=== PATIENT | male | born 1955 | race Caucasian/White ===

== ENCOUNTER → 2019-10-24 11:15 | Outpatient (BNVA) | payer MEDICARE, SELFPAY | PROVIDERS: Family Provider Internal Medicine; Visit Provider Nurse Practitioner Family | DX: R19.7 Diarrhea, unspecified (principal) | CPT/HCPCS: 87506 ==

== ENCOUNTER 2020-05-20 07:26 | Outpatient (CLI) | payer OTHER, SELFPAY ==
--- NOTE | 2020-05-20 08:00 | CT_ITS ---
WS: [id number] CTA ABDOMINAL AORTA WITH RUNOFF TECHNIQUE: Contrast enhanced CTA of the abdominal aorta with bilateral lower extremity runoff. Multip lanar reformatted images were obtained. MIP reformats were also reviewed. CLINICAL INFORMATION: I73.9 - Peripheral vascular disease, unspecified COMPARISON: None. DLP: 1914.[address] scans at [facility] use at least one of these dose optimization techniques: automat ed exposure control; mA and/or kV adjustment per patient size (includes targeted exams where dose is matched to clinical indication); or iterative reconstruction. FINDINGS: Normal caliber abdominal aorta. Mild aortic calcification. No aneurysm. Celiac and SMA are patent. Proximal renal arteries are patent. Normal renal parenchymal enhancement. Inferior mesenteric artery is patent Prior postoperative changes cholecystectomy with induration and edema in the gallbladder fossa likely due to recent cholecystectomy. Recommend correlation with recent surgical history. Diffuse fatty inf iltration of the liver. Portal vein and splenic vein are patent. Normal spleen. Adrenal glands are no rmal. Normal renal parenchymal enhancement. No hydronephrosis. Mild fatty atrophy of the pancreas. Susan ng bases are well aerated. Disc space narrowing L3-L4 and L4-L5. RIGHT: Right common iliac artery is patent. External and internal iliac arteries are patent. Common f emoral and deep femoral arteries are patent. Mild calcification superficial femoral artery which haily ins patent. Superficial femoral artery is patent to the adductor hiatus. Mild stenosis with calcifica tion proximal popliteal artery [id number]. Mild segmental narrowing calcification popliteal arter y [id number]. Dense calcification at the level of the knee with high-grade stenosis. JOSE degrade s images in this area. Popliteal artery appears occluded just above the knee. Popliteal artery recons titutes proximal to the trifurcation with normal three-vessel runoff to the ankle. Calcification prox imal anterior tibial artery with intermittent flow. Distal calf arteries are patent. LEFT: Left common iliac artery is patent. External and internal iliac arteries are patent. Severe britany nosis in the common femoral artery in the left groin measuring approximately 80%. Dense calcification at this level. Superficial femoral and deep femoral arteries are patent. Popliteal artery is patent above the knee with moderate calcification. Dense calcification popliteal at the level of the knee wi th high-grade stenosis. This appears occluded at the level of the patella. This reconstitutes proxima l to the trifurcation with normal three-vessel runoff to the ankle. CT/CT angio abd aorta runof 61012 IMPRESSION: 1. No abdominal aortic aneurysm. 2. RIGHT: TKA degrades images at the level of the knee. Popliteal artery is oc cluded just above the knee with dense calcification. Popliteal artery reconstit utes proximal to the trifurcation with three-vessel runoff to the ankle. Segmen efraín flow in the anterior tibial artery proximally which is patent distally. 3. LEFT: High-grade stenosis involving the common femoral artery in the left g roin measuring 80% which remains patent. Popliteal artery is occluded at the le akash of the patella above the knee with dense calcification. This reconstitutes prior to the trifurcation with relatively normal three-vessel runoff to the ank le. 4. Prior postoperative changes cholecystectomy with induration and edema in th e gallbladder fossa likely due to recent cholecystectomy. Recommend correlation with surgical history. 5. Other nonvascular findings described above.
[2020-05-20 08:15] LABS: Blood Urea Nitrogen 28 mg/dL (8-23); Glomerular Filtration Rate 35.5 mL/min (90-130)
[2020-05-20] MEDS: iodixanol 320 mg/mL 100mL Btl IV (08:46)
== END 2020-05-20 07:27 | disposition home or self-care (01) ==
LOC: CT 07:27
PROVIDERS: PCP Family Medicine; Visit Provider Thoracic Surgery (Cardiothoracic Vascular Surgery)
DX: I73.9 Peripheral vascular disease, unspecified (principal); I70.8 Atherosclerosis of other arteries
CPT/HCPCS: 36415; 75635; 82565; 84520

== ENCOUNTER 2020-06-19 13:34 | Outpatient (CLI) | payer OTHER, SELFPAY ==
[2020-06-19 13:56] LABS: Basophils # 0.1 10^3/uL (0.0-0.1); Eosinophils # 0.3 10^3/uL (0.0-0.8); Eosinophils % 5.2 %; Hematocrit 40.4 % (42.0-52.0); Lymphocytes # 1.3 10^3/uL (0.8-4.8); Lymphocytes % 27.9 %; Mean Corpuscular HGB Conc 34.7 g/dL (30.0-36.0); Mean Corpuscular Hemoglobin 30.4 pg (28.0-34.0); Mean Corpuscular Volume 87.8 fL (80-94); Mean Platelet Volume 8.5 fL (7.4-10.4); Monocytes # 0.6 10^3/uL (0.2-0.9); Monocytes % 12.1 %; Neutrophils # 2.57 10^3/uL (1.8-7.7); Neutrophils % 53.6 %; Nucleated Red Blood Cells % 0 %; Platelet Count 138 10^3/cmm (130-400); Red Cell Distribution Width 12.1 % (12.1-15.1); White Blood Count 4.8 10^3/uL (4.0-10.0)
[2020-06-19 14:25] LABS: Blood Urea Nitrogen 26 mg/dL (8-23); Calcium 9.8 mg/dL (8.5-10.5); Carbon Dioxide 28 mmol/L (22-29); Chloride 101 mmol/L (98-107); Glomerular Filtration Rate 46.7 mL/min (90-130); Glucose 202 mg/dL (65-115); Osmolality Calculated 299 mOsm/kg (285-295); Sodium 139 mmol/L (136-145)
[2020-06-19 15:31] LABS: INR 0.94 (0.8-1.2)
== END 2020-06-19 13:35 | disposition home or self-care (01) ==
PROVIDERS: PCP Family Medicine; Visit Provider Internal Medicine Cardiovascular Disease
DX: I73.9 Peripheral vascular disease, unspecified (principal)
CPT/HCPCS: 80048; 85025; 85610; 87635

== ENCOUNTER 2020-06-24 05:57 | Day surgery (SDC) | payer OTHER, MEDICARE, SELFPAY ==
[2020-06-24] VITALS (19 sets, daily range): BP systolic 165–202; BP diastolic 90–128; PULSE 61–79; RESP 12–23; TEMP 36.7–36.8; O2SAT 95–98; BMI 27.4
--- NOTE | 2020-06-24 | USCV_ITS ---
Gregory Mukherjee Age: 65 Gender: M : 1955 Exam Date: 06/24/2020 17:01 Ordering Phys: Deonte Herrera MD ([email or web address]) Technologist: OLIVERIO [place] [facility] [place]: [place] GROIN TO CHECK FOR PSEUDO Findings Scanned left groin incluiding the GSV, CFV, Profunda, CROWN PRESSER, and TIE BINDER. Normal flow seen in CROWN PRESSER and no pseudoaneurysm seen at this time. Common femoral artery, common femoral and profunda femoral vein, greater saphenous vein and the posterior tibial artery where interrogated. The veins were found to be easily compressible. Conclusions Patent common femoral and profunda femoral vein. Patent common femoral artery No evidence of pseudoaneurysm in the left groin Dr Kerri Wallace MD FAC (Electronically Signed) Final Date: 24 June 2020 17:50 S
[2020-06-24] MEDS: sodium chloride 0.9% 250 ML 999 ML IV (06:57)
[2020-06-24] MEDS: diphenhydrAMINE 50 mg Capsule PO (06:57)
--- NOTE | 2020-06-24 07:00 | XACV_ITS ---
Wt: 94 kg BSA: 2.22 m2 Gender: Male : 1955 Exam Type: Invasive Peripheral Vascular Procedure(s): Procedure Description: Peripheral Cath Diagnostic Procedure Exam Priority: Routine Lower Extremity Diagnostic Findings Indication for peripheral angiogram: Lifestyle limiting claudication of right leg despite of optimization of medicine Abdominal aortogram: Normal abdominal aorta without aneurysm, normal right and left renal arteries. Peripheral angiogram: Normal bilateral common iliac arteries, normal internal and external iliac arteries, normal common femoral arteries bilaterally, normal left SFA, right SFA has distal mild calcified stenosis which is not significant, normal bilateral profundofemoral arteries, left popliteal artery is normal. Right popliteal artery is chronically occluded in the proximal segment with reconstitute in the mid way with collateral, it is a highly calcified lesion, bilateral tibioperoneal trunk showed luminal irregularity two-vessel runoff was noted in both legs. . Lower Extremity Interventional Findings Intervention: Using left common femoral artery approach with help of Glidewire , we were able to cross the proximal popliteal right side lesion after somewhat difficulty however distal end of the wire went through collateral into the tibial peroneal trunk. Despite of balloon angioplasty of the proximal highly calcified segment of the right popliteal were not able to cross the main lesion which remained unsuccessful. At this point we stopped the procedure with a plan to bring him back through tibial approach. Follow-up angiogram of the right leg showed patent below the knee vessels with 2 vessel runoff.. Recommendations Usual post-cath care. We will bring patient back for tibial approach in order to cross the popliteal lesion for lifestyle limiting claudication of the right leg.. Hemodynamic Data Phase:Rest AO : 189.0 / 72.0 ( 115.0 ) @ 3:55:00 AM Access Site Site: Left Femoral artery Sheath Size: 6 Fr Hemost... Method: Suture Hemost... Success: Successful Site: Right Popliteal Sheath Size: 5 Fr Hemost... Method: Manual Compression Hemost... Success: Successful Site: Popliteal Sheath Size: 5 Fr Hemost... Method: TR Band Hemost... Success: Successful Procedure Details Findings Procedure Consent Obtained. Pre-Procedure Time Out. Identified patient by full name and date of as verbalized by the patient/guarantor. Does the consent match the physician's order: Yes. Accurate & Complete Informed Consent: Yes. Inpatient/Outpatient History & Physical on Chart: Yes. If H&P is completed, is and addenduem needed: N/A; If yes, is the addendum complete: N/A. Visualize and Verify Site with Patient/Guarantor: N/A. Relevant Radiology Images available: N/A. The risks, benefits, and alternatives of sedation and/or procedure were discussed by physician. The patient agrees to continue. Procedure started. Correct patient, site and procedure confirmed by cath team. PERRLA. Strong, equal hand family intervention specialist bilaterally. Lungs clear x 5 lobes. IV Site on Arrival: 20 gauge in the left forearm. Oxygen started at 2liters/min via nasal canula. bilateral groins was prepped with chloroprep then draped in the usual sterile fashion. Physician notified. Baseline sample Acquired. HR: 73 BPM. Physician arrived. Physician scrubbed in. Immediate Pre-Procedure Time Out. Correct Patient: Yes; Correct Procedure: Yes; Correct Site: Yes; Correct Patient Position: Yes; Correct Supplies: Yes; Dried Flammable Prep: Yes; Blood Products Available: N/A;. Lidocaine 1% infiltrated to the left groin. Arterial access obtained with micropuncture set. A 5FrFr UF catheter in over wire. Abdominal aortogram performed in AP @ 10 mL/sec for a total of 30 mL. glidewire inserted. Catheter out. 6F sheath out. 6Fr Flexor in place of sheath. LOT#[id number]. right leg runoff 10mL /sec for a total of 30mL. Trailblazer catheter inserted over the wire. glidewire out. command wire inserted. command wire out. hand injection performed throught the trailblazer. guide wire inserted. guide wire out. trailblazer advanced to the TPT. hand injection performed. hand injection performed. glidewire inserted. Inflation number : [address] 35 OTW [id number] was prepped and advanced across the Popliteal, Left Popliteal, Left , then inflated to 14 NALDO for 2:43 seconds. Balloon out. hand injection performed. seeker inserted. wire out. hand injection performed. seeker out. Side port of sheath attached to Normal Saline flush at KVO to maintain patency. Right leg exsposed and prepped with chloroprep. unltra sound arrived for pedal access. Lidocaine 1% infiltrated to the right PT. Arterial access obtained. glidewire inserted. Sheath out of PT manual pressure obtained. right leg runoff 10mL/sec for a total of 30mL. ultra sound back for attempt to gain access of PT. Lidocaine 1% infiltrated to the RightPT. Arterial access obtained. 6F long sheath exchanged for a 6F short sheath. run off performed. A Manual Compression was successful obtaining hemostatsis at the Right Popliteal insertion site. A TR Band was successful obtaining hemostatsis at the Popliteal insertion site. A Suture was successful obtaining hemostatsis at the Left Femoral artery insertion site. TR band placed. Hemostasis obtained. Sheath(s) sutured into position with 2-0 silk and sterile 4x4's and Op-site applied over the site. No oozing or signs and symptoms of hematoma noted. Arterial sheath flushed and connected to tranducer and pressure bag with heparinized saline. Post Procedure: Pulses reassessed and unchanged. PERRLA. Strong, equal hand family intervention specialist bilaterally. No VTE prophylaxis required. Medication's Wasted: Other = versed 1 mg. Medication's Wasted: Other = fentanyl 50 mg. Medication's Wasted: Heparin = 2000 units. Total IV fluids: 264 mL. Contrast type used: Visipaque 320 mgI/mL, 500 mL bottle. Contrast Material : Visipaque 300 ml. Complications: none. Estimated blood loss: 5mL-10mL. Post-op diagnosis: Prox popiteal occluded. balloon angioplasty across distal. Procedure completed. Patient transferred by bed to 1st floor. Vital chart was stopped. Procedure Medications Start: 7:47 AM Stop: 7:47 AM Medication: Versed Amount: 1 mg Route: I.V. Start: 7:47 AM Stop: 7:47 AM Medication: Fentanyl Amount: 50 mcg Route: I.V. Start: 7:48 AM Stop: 7:48 AM Medication: 0.9% Saline Amount: 150 ml/hr Route: I.V. drip Start: 7:51 AM Stop: 7:51 AM Medication: Versed Amount: 1 mg Route: I.V. Start: 7:51 AM Stop: 7:51 AM Medication: Fentanyl Amount: 50 mcg Route: I.V. Start: 8:14 AM Stop: 8:14 AM Medication: Heparin Amount: 5000 units Route: I.V. Start: 8:24 AM Stop: 8:24 AM Medication: Versed Amount: 1 mg Route: I.V. Start: 8:24 AM Stop: 8:24 AM Medication: Fentanyl Amount: 50 mcg Route: I.V. Start: 8:30 AM Stop: 8:30 AM Medication: Heparin Amount: 2000 units Route: I.V. Start: 8:07 AM Stop: 8:07 AM Medication: Versed Amount: 1 mg Route: I.V. Start: 8:07 AM Stop: 8:07 AM Medication: Fentanyl Amount: 50 mcg Route: I.V. Start: 9:12 AM Stop: 9:12 AM Medication: Versed Amount: 1 mg Route: I.V. Start: 9:12 AM Stop: 9:12 AM Medication: Fentanyl Amount: 50 mcg Route: I.V. Start: 8:50 AM Stop: 8:50 AM Medication: Versed Amount: 1 mg Route: I.V. Start: 8:50 AM Stop: 8:50 AM Medication: Fentanyl Amount: 50 mcg Route: I.V. Start: 8:40 AM Stop: 8:40 AM Medication: Versed Amount: 1 mg Route: I.V. I, the attending physician, have reviewed and verified all procedure medications. Yes, all medications given per verbal order History/Risk Factors Hypertension: Yes Tobacco Use: Current/Recent(w/in 1 year) Dialysis: Current Prior Interventions CABG: Yes Report Signatures Finalized by Deonte Herrera MD on 07/03/2020 08:03 PM
--- NOTE | 2020-06-24 07:38 | P.HP_ITS ---
Same Day Surgery H&P Indication for Procedure/HPI DATE OF PROCEDURE: June 24, 2020 CHIEF COMPLAINT/INDICATIONFOR SURGICAL PROCEDURE: Lifestyle limiting claudication of both legs more on right than left with abnormal CTA showing occlusion of popliteal artery on the right side and complete occlusion of left SFA. PREOP DIAGNOSIS: Lifestyle limiting claudication PLANNED PROCEDRUE: Operation Date: 06/24/20 07:00 Proposed Procedures p Peripheral Diagnostic 34509(Not Applicable) - Deonte Herrera MD 65-year-old male past medical history significant for coronary artery disease hypertension hyperlipidemia history of tobacco abuse chronic kidney disease baseline creatinine around 1.5 diabetes mellitus pain syndrome for worsening of lifestyle limiting claudication more on right then left has been referred to us by Dr. Rodriguez for peripheral angiogram and intervention if indicated. 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 Patient can hardly walk 100 feet before he has to sit down due to tightness and cramps. He has total knee replacement on the right side despite of that his pain has gotten worsen. Patient has been explained all risk benefit and alternative for the procedure. He understand the risk of bleeding infection hematoma he understands the FDA warning of high mortality in some patient with using drug-coated balloon. He would like to use it if indicated. He would like to proceed with peripheral angiogram and intervention . Medications/Allergies* Home Medications Medication Instructions Recorded Confirmed Type baclofen 10 mg tablet 10 mg PO DAILY 10/24/19 06/24/20 History glipizide 10 mg tablet 10 mg PO DAILY 10/24/19 06/24/20 History losartan 50 mg tablet 50 mg PO DAILY 10/24/19 06/24/20 History metoprolol tartrate 50 mg tablet 50 mg PO DAILY 10/24/19 06/24/20 History albuterol sulfate 2.5 mg/0.5 mL 2.5 mg INHALATION Q20M 05/16/20 06/24/20 History solution for nebulization albuterol sulfate 90 mcg/actuation 2 puff INHALATION Q6H PRN 05/16/20 06/24/20 History aerosol inhaler allopurinol 100 mg tablet 50 mg PO .EVERY OTHER DAY tab 05/16/20 06/24/20 History alogliptin 12.5 mg tablet 12.5 mg PO DAILY 05/16/20 06/24/20 History alprostadil 20 mcg intracavernosal 20 mcg INTRA-CAVERNOSAL .PRN ea 05/16/20 06/24/20 History kit amlodipine 10 mg tablet 10 mg PO DAILY 05/16/20 06/24/20 History ascorbic acid (vitamin C) 1,000 mg 1,000 mg PO DAILY tab 05/16/20 06/24/20 History tablet,extended release aspirin 325 mg tablet 325 mg PO DAILY 05/16/20 06/24/20 History bumetanide 1 mg tablet 1 mg PO DAILY 05/16/20 06/24/20 History cilostazol 100 mg tablet 100 mg PO BID 05/16/20 06/24/20 History diclofenac sodium 1 % topical gel 4 g TOPICAL QID PRN 05/16/20 06/24/20 History fluticasone propionate 50 2 inh INHALATION DAILY ea 05/16/20 06/24/20 History mcg/actuation blister powder for inhalation gabapentin 300 mg capsule 300 mg PO BEDTIME 05/16/20 06/24/20 History insulin glargine 100 unit/mL 22 unit SUBCUT DAILY ml 05/16/20 06/24/20 History subcutaneous solution magnesium oxide 400 mg PO DAILY 05/16/20 06/24/20 History primidone 50 mg tablet 150 mg PO .Q NIGHTLY tab 05/16/20 06/24/20 History rosuvastatin 40 mg tablet 40 mg PO DAILY 05/16/20 06/24/20 History sildenafil 100 mg tablet 100 mg PO DAILY PRN 05/16/20 06/24/20 History tamsulosin 0.4 mg capsule 0.4 mg PO DAILY 05/16/20 06/24/20 History testosterone cypionate 200 mg/mL 200 mg IM .Q 14 DAYS ml 05/16/20 06/24/20 History intramuscular oil zinc gluconate 100 mg tablet 50 mg PO DAILY tab 05/16/20 06/24/20 History Allergies/Adverse Reactions Allergy/AdvReac Type Severity Reaction Status Date / Time No Known Allergies Allergy Verified 05/16/20 10:10 Current Medications: Generic Name Dose Route Start Last Admin Trade Name Freq PRN Reason Stop Dose Admin Sodium Chloride 1,000 mls @ 50 mls/hr 06/24/20 06:00 06/24/20 06:57 Sodium Chloride 0.9% IV 06/25/20 01:59 Not Given .Q20H ONE Pertinent History/Comorbid Conditions* Family History (Updated 05/16/20 @ 10:28 by Blanca Davis LPN) Denies family history of Diabetes CAD (coronary artery disease) Cancer Social History Smoking and tobacco status: smoker, details unknown cigarettes Packs smoked per day: 2 Years cigarettes smoked: 12 Alcohol intake: never Pertinent Exam Findings alert, oriented x 3, clear to auscultation bilaterally and procedure specific exam findings Conscious Sedation Assessment PATIENT ASSESSED PRIOR TO SEDATION, WITH NO CHANGE NOTED: Yes AIRWAY EVAL/ANESTHESIA PLAN: ASA II, Risks, benefits & alternatives of sedation and/or procedure discussed and Patient agrees to continue as planned Recommendations Surgery/Procedure today Coding Level of Care Code Acute Financial Services Counselor for Yeni Pelletier
--- NOTE | 2020-06-24 07:43 | W.PM.OPSFHP ---
Same Day Surgery H&P Indication for Procedure/HPI DATE OF PROCEDURE: June 24, 2020 CHIEF COMPLAINT/INDICATIONFOR SURGICAL PROCEDURE: Lifestyle limiting claudication of the right leg PREOP DIAGNOSIS: Lifestyle limiting claudication PLANNED PROCEDRUE: Operation Date: 06/24/20 07:00 Proposed Procedures p Peripheral Diagnostic 65264(Not Applicable) - Deonte Herrera MD 65-year-old male with abnormal CTA showing total occlusion of popliteal vessel and lifestyle limiting claudication after failing medical treatment has been scheduled to undergo peripheral angiogram. Patient has been explained all risk benefit and alternative for the procedure. He understand the risk of major minor bleed, hematoma, pseudoaneurysm, urgent emergent vascular surgery, infection. He agrees to proceed with drug-coated balloon if indicated despite of being explained FDA warning for increased mortality in that group. He understand the risk of contrast-induced nephropathy, temporary and permanent dialysis. We will proceed with test today. Further plan will be advised as per progress of the patient. He understand the risk of Medications/Allergies* Home Medications Medication Instructions Recorded Confirmed Type baclofen 10 mg tablet 10 mg PO DAILY 10/24/19 06/24/20 History glipizide 10 mg tablet 10 mg PO DAILY 10/24/19 06/24/20 History losartan 50 mg tablet 50 mg PO DAILY 10/24/19 06/24/20 History metoprolol tartrate 50 mg tablet 50 mg PO DAILY 10/24/19 06/24/20 History albuterol sulfate 2.5 mg/0.5 mL 2.5 mg INHALATION Q20M 05/16/20 06/24/20 History solution for nebulization albuterol sulfate 90 mcg/actuation 2 puff INHALATION Q6H PRN 05/16/20 06/24/20 History aerosol inhaler allopurinol 100 mg tablet 50 mg PO .EVERY OTHER DAY tab 05/16/20 06/24/20 History alogliptin 12.5 mg tablet 12.5 mg PO DAILY 05/16/20 06/24/20 History alprostadil 20 mcg intracavernosal 20 mcg INTRA-CAVERNOSAL .PRN ea 05/16/20 06/24/20 History kit amlodipine 10 mg tablet 10 mg PO DAILY 05/16/20 06/24/20 History ascorbic acid (vitamin C) 1,000 mg 1,000 mg PO DAILY tab 05/16/20 06/24/20 History tablet,extended release aspirin 325 mg tablet 325 mg PO DAILY 05/16/20 06/24/20 History bumetanide 1 mg tablet 1 mg PO DAILY 05/16/20 06/24/20 History cilostazol 100 mg tablet 100 mg PO BID 05/16/20 06/24/20 History diclofenac sodium 1 % topical gel 4 g TOPICAL QID PRN 05/16/20 06/24/20 History fluticasone propionate 50 2 inh INHALATION DAILY ea 05/16/20 06/24/20 History mcg/actuation blister powder for inhalation gabapentin 300 mg capsule 300 mg PO BEDTIME 05/16/20 06/24/20 History insulin glargine 100 unit/mL 22 unit SUBCUT DAILY ml 05/16/20 06/24/20 History subcutaneous solution magnesium oxide 400 mg PO DAILY 05/16/20 06/24/20 History primidone 50 mg tablet 150 mg PO .Q NIGHTLY tab 05/16/20 06/24/20 History rosuvastatin 40 mg tablet 40 mg PO DAILY 05/16/20 06/24/20 History sildenafil 100 mg tablet 100 mg PO DAILY PRN 05/16/20 06/24/20 History tamsulosin 0.4 mg capsule 0.4 mg PO DAILY 05/16/20 06/24/20 History testosterone cypionate 200 mg/mL 200 mg IM .Q 14 DAYS ml 05/16/20 06/24/20 History intramuscular oil zinc gluconate 100 mg tablet 50 mg PO DAILY tab 05/16/20 06/24/20 History Allergies/Adverse Reactions Allergy/AdvReac Type Severity Reaction Status Date / Time No Known Allergies Allergy Verified 05/16/20 10:10 Current Medications: Generic Name Dose Route Start Last Admin Trade Name Freq PRN Reason Stop Dose Admin Sodium Chloride 1,000 mls @ 50 mls/hr 06/24/20 06:00 06/24/20 06:57 Sodium Chloride 0.9% IV 06/25/20 01:59 Not Given .Q20H ONE Pertinent History/Comorbid Conditions* Family History (Updated 05/16/20 @ 10:28 by Blanca Davis LPN) Denies family history of Diabetes CAD (coronary artery disease) Cancer Social History Smoking and tobacco status: smoker, details unknown cigarettes Packs smoked per day: 2 Years cigarettes smoked: 12 Alcohol intake: never Pertinent Exam Findings alert, oriented x 3, clear to auscultation bilaterally and regular rate & rhythm Conscious Sedation Assessment PATIENT ASSESSED PRIOR TO SEDATION, WITH NO CHANGE NOTED: Yes AIRWAY EVAL/ANESTHESIA PLAN: ASA II, Risks, benefits & alternatives of sedation and/or procedure discussed and Patient agrees to continue as planned Recommendations Surgery/Procedure today Coding Level of Care Code Acute General Labor Forklift Operator for Yeni Pelletier
--- NOTE | 2020-06-24 08:50 | USCV_ITS ---
Gregory Mukherjee Age: 65 Gender: M : 1955 Exam Date: 06/24/2020 09:03 Ordering Phys: Deonte Herrera MD ([email or web address]) Technologist: OLIVERIO Exam Location: [facility] Indication: VASCULAR ACCESS Findings ACCESS GAINED The right posterior tibial artery was interrogated The artery was found to be patent Conclusions Patent right posterior tibial artery was identified Dr Kerri Wallace MD [facility] (Electronically Signed) Final Date: 24 June 2020 17:31 S
[2020-06-24] MEDS: allopurinol 100 mg Tablet 50 MG PO (11:16)
[2020-06-24] MEDS: losartan 50 mg Tablet PO ×2 (11:16→18:48)
[2020-06-24] MEDS: amlodipine 10 mg Tablet PO (11:16)
[2020-06-24] MEDS: magnesium oxide 400 mg tablet PO (11:16)
[2020-06-24] MEDS: metoprolol tartrate 50 mg Tablet PO (11:16)
[2020-06-24] MEDS: aspirin 325 mg Tablet PO (11:16)
[2020-06-24 11:21] LABS: Glucose Point of Care 136 mg/dL (70-110)
[2020-06-24 12:52] LABS: Partial Thromboplastin Time 31.8 SECONDS (23.9-36.7)
[2020-06-24] MEDS: fentaNYL 50 mcg/mL INJ 2mL IVP ×2 (13:38→16:27)
--- NOTE | 2020-06-24 16:41 | PC.NURSE ---
received into room 102 from cardiac labor relations specialist at 1005.pt is alert and awake and oriented x 4.sr on monitor.denies pain at present.left femoral arterial sheath intact to pressurized system.drsg is dry and intact.no hematoma palpated.left dp and pt pulses dopplerable.right ankle with tr band on and inflated at right pt artery.dopplerable dp and pt pulse noted distal to tr band.left foot is warm to touch and with brisk capillary refill.instructed in activity restrictions s/p femoral and arterial procedures and instructed to notify staff for any pain,bleeding,numbness or for any concerns at all.pt verb understanding of instructions
--- NOTE | 2020-06-24 16:51 | PC.NURSE ---
50 mcg fentanyl given prior to sheath removal.left femoral sheath pulled at 1350.manul pressure applied and held x 20 min.pt was very active during procedure..bearing down with his breath,moving.it took a minute to achieve hemostasis.small hematoma developed but was expressed.at end of hold ,site was soft,though beginning of bruising noted.will continue to check frequently.
--- NOTE | 2020-06-24 16:55 | PC.NURSE ---
Addendum entered by Leila Hayes RN 06/24/20 18:50: pletal held per dr dick's order Original Note: pt has been checked on frequently and bruising has been increasing..but site has been soft to touch till 1620.site is firm...4 cm x 4cm.very tender to touch.pt states it feels like it is throbbing.dr dick notified and came to unit to observe pt.. 50 mcg of fentanyl given iv as ordered and ultrasound ordered.
[2020-06-24 17:04] LABS: Glucose Point of Care 200 mg/dL (70-110)
[2020-06-24] MEDS: HYDROcodone-acetaminophen 5-325 mg Tablet 2 TAB PO (18:48)
--- NOTE | 2020-06-24 20:00 | PC.NURSE ---
dr dick came and visited pt at 1830..inspected left groin site.area is now soft...but bruising cont to expand.pain med and 1 time 50 mg losarten given for cont htn as ordered
--- NOTE | 2020-06-24 20:07 | PC.NURSE ---
Received bed side shift report from off going nurse. Pt's plan of care reviewed. Pt is resting in bed watching videos on his laptop. Respirations are even and unlabored. No s/sx of distress noted. Pt is alert and oriented and able to make his own decisions. Pt c/o 4/10 pain in his left groin s/p peripheral angiogram. Pain is exacerbated when palpated. Hematoma noted on left groin. Physician is aware and will continue to monitor. Hematoma extends from the left groin to the left pelvis area. Area is soft when palpated besides area of insertion which is noted to be firm. +2 to +3 palpable bilateral dorsal pedal pulses. Pt denies any other pains or concerns at this time. Bed in lowest and locked position, call light and water within reach, x's 2 rails up. Will continue to monitor pt.
[2020-06-24] MEDS: tamsulosin 0.4 mg Capsule PO (20:19)
[2020-06-24] MEDS: atorvastatin 40 mg Tablet 80 MG PO (20:19)
[2020-06-24] MEDS: ALPRAZolam 0.25 mg Tablet PO (20:19)
[2020-06-24] MEDS: baclofen 10 mg Tablet PO (20:20)
[2020-06-24] MEDS: gabapentin 300 mg Capsule PO (20:20)
[2020-06-24 21:18] LABS: Glucose Point of Care 198 mg/dL (70-110)
[2020-06-25] VITALS (48 sets, daily range): BP systolic 147–174; BP diastolic 84–97; PULSE 64–90; RESP 0–22; TEMP 36.6; O2SAT 93–97
[2020-06-25] MEDS: HYDROcodone-acetaminophen 5-325 mg Tablet 2 TAB PO (05:55)
[2020-06-25 07:15] LABS: Glucose Point of Care 155 mg/dL (70-110)
[2020-06-25] MEDS: losartan 50 mg Tablet PO (08:07)
[2020-06-25] MEDS: aspirin 325 mg Tablet PO (08:07)
[2020-06-25] MEDS: magnesium oxide 400 mg tablet PO (08:08)
[2020-06-25] MEDS: allopurinol 100 mg Tablet 50 MG PO (08:08)
[2020-06-25] MEDS: metoprolol tartrate 50 mg Tablet PO (08:11)
[2020-06-25] MEDS: amlodipine 10 mg Tablet PO (08:11)
[2020-06-25 08:17] LABS: Basophils # 0.1 10^3/uL (0.0-0.1); Basophils % 0.9 %; Eosinophils # 0.3 10^3/uL (0.0-0.8); Eosinophils % 4.3 %; Hematocrit 38.6 % (42.0-52.0); Hemoglobin 13.5 g/dL (11.7-16.6); Lymphocytes # 1.4 10^3/uL (0.8-4.8); Mean Corpuscular Hemoglobin 31.2 pg (28.0-34.0); Mean Corpuscular Volume 89.1 fL (80-94); Mean Platelet Volume 8.7 fL (7.4-10.4); Monocytes # 0.9 10^3/uL (0.2-0.9); Monocytes % 14.2 %; Neutrophils # 3.76 10^3/uL (1.8-7.7); Neutrophils % 58.3 %; Nucleated Red Blood Cells % 0 %; Platelet Count 146 10^3/cmm (130-400); Red Blood Count 4.33 10^6/uL (4.1-5.3); Red Cell Distribution Width 12.2 % (12.1-15.1); White Blood Count 6.5 10^3/uL (4.0-10.0)
--- NOTE | 2020-06-25 08:27 | PM.DCS ---
Discharge Providers Date of Discharge: June 25, 2020 Attending Provider at Discharge: Deonte Herrera MD Primary Care Provider: Jackelin Cardona MD Reason for Visit Reason for Visit: Peripheral Diagnostic Hospital Course Hospital Course 65-year-old male past medical history significant for hypertension hyperlipidemia diabetes mellitus for lifestyle limiting claudication and abnormal CT angiogram showing chronically occluded proximal popliteal vessel reconstitute at the tibial peroneal trunk on the right side underwent peripheral angiogram. I was able to cross the lesion in the proximal segment but went through the distal aspects via collateral. Proximal end of the occlusion was dilated with balloon angioplasty however distal segment remained unsuccessful for crossing despite of multiple tries and because of not good visualization due to prosthesis in the knee joint. We also tried to go through posterior tibial but ending up in the tibial vein appeared to be on top of the vessel. Since patient has chronic renal insufficiency and would not like to give much contrast we will reschedule the patient in 2 to 3 weeks for tibial approach in order to cross the distal end of the popliteal vessel. Post cath care was complicated with medium-sized hematoma after pulling of the sheath. Pseudoaneurysm was ruled out. Patient stayed overnight since he has chronic back pain and he was pretty sore in the left groin and also for IV fluid and in order to observe him overnight for any bleed. This morning he has large bruising of the groin but no hematoma. There is no pseudoaneurysm by physical examination or by ultrasound. He will be rescheduled for tibial approach of the right leg in 2 to 3 weeks. Today creatinine has improved to 1.3. I will also optimize medicine for blood pressure control. Physical Exam Narrative: EXAM NARRATIVE: GENERAL: Patient is alert, awake and oriented x3. NECK: No jugular vein distension. HEENT: No cyanosis. No icterus. No pallor. HEART: Regular S1 and S2. No murmur, rub or gallop. LUNGS: Clear to auscultate bilaterally. ABDOMEN: Soft, nontender and nondistended. Positive bowel sounds. No guarding, rebound or tenderness. CENTRAL NERVOUS SYSTEM: Grossly nonfocal. EXTREMITIES: Lower extremities without edema bilaterally., Right left foot looks good warm moist good capillary refill barely 1+ right anterior posterior tibial. 1+ anterior posterior tibial on the left side. Left groin large bruising. Discharge Data Data Completed and Pending: Completed Studies During Hospitalization Category Date Time Status CV unlisted vascu lar [id number] Routine Ultrasound 06/24/20 Completed US guide vascular access [CV guide vascular access Ultrasound 06/24/20 08:50 Completed [id number]] Stat Pending at discharge Category Date Time Status [employer] request for service Routin e Exams 06/24/20 07:00 Taken Basic Metabolic P bel Routine Lab 06/25/20 08:05 Received Labs from last 24 hours 06/25/20 06/25/20 06/25/20 08:05 08:05 06:34 WBC 6.5 RBC 4.33 Hgb 13.5 Hct 38.6 L MCV 89.1 MCH 31.2 MCHC 35.0 RDW 12.2 Plt Count 146 MPV 8.7 Neut % (Auto) 58.3 Lymph % (Auto) 22.0 [place] % (Auto) 14.2 Eos % (Auto) 4.3 Baso % (Auto) 0.9 Neut # (Auto) 3.76 Lymph # (Auto) 1.4 [place] # (Auto) 0.9 Eos # (Auto) 0.3 Baso # (Auto) 0.1 Nucleated RBC % (a uto) 0 Nucleated RBCs # 0.0 APTT Sodium Pending Potassium Pending Chloride Pending Carbon Dioxide Pending Anion Gap Pending BUN Pending Creatinine Pending GFR Calculation Pending Glucose Pending POC Glucose 155 H Calculated Osmolal ity Pending Calcium Pending 06/24/20 06/24/20 06/24/20 19:59 16:20 12:18 WBC RBC Hgb Hct MCV MCH MCHC RDW Plt Count MPV Neut % (Auto) Lymph % (Auto) [place] % (Auto) Eos % (Auto) Baso % (Auto) Neut # (Auto) Lymph # (Auto) [place] # (Auto) Eos # (Auto) Baso # (Auto) Nucleated RBC % (a uto) Nucleated RBCs # APTT 31.8 Sodium Potassium Chloride Carbon Dioxide Anion Gap BUN Creatinine GFR Calculation Glucose POC Glucose 198 H 200 H Calculated Osmolal ity Calcium 06/24/20 11:06 WBC RBC Hgb Hct MCV MCH MCHC RDW Plt Count MPV Neut % (Auto) Lymph % (Auto) [place] % (Auto) Eos % (Auto) Baso % (Auto) Neut # (Auto) Lymph # (Auto) [place] # (Auto) Eos # (Auto) Baso # (Auto) Nucleated RBC % (a uto) Nucleated RBCs # APTT Sodium Potassium Chloride Carbon Dioxide Anion Gap BUN Creatinine GFR Calculation Glucose POC Glucose 136 H Calculated Osmolal ity Calcium Vitals: Last Vital Signs Temp 97.9 F 06/25/20 07:16 Pulse 67 06/25/20 07:16 Resp 14 06/25/20 07:16 BP 149/84 06/25/20 08:07 Pulse Ox 94 06/25/20 07:16 Discharge Plan Discharge Patient Disposition: Home Condition: Stable Prescriptions: Continued losartan 50 mg tablet 50 mg PO DAILY RF: 0 baclofen 10 mg tablet 10 mg PO DAILY RF: 0 glipizide 10 mg tablet 10 mg PO DAILY RF: 0 metoprolol tartrate 50 mg tablet 50 mg PO DAILY RF: 0 albuterol sulfate 90 mcg/actuation HFA aerosol inhaler 2 puff inhalation Q6H PRN (Reason: Shortness Of Breath Or Wheezing) RF: 0 albuterol sulfate 2.5 mg/0.5 mL solution for nebulization 2.5 mg inhalation Q20M RF: 0 allopurinol 100 mg tablet 50 mg PO .EVERY OTHER DAY RF: 0 alogliptin 12.5 mg tablet 12.5 mg PO DAILY RF: 0 alprostadil 20 mcg kit 20 mcg intra-cavernosal .PRN RF: 0 amlodipine 10 mg tablet 10 mg PO DAILY RF: 0 aspirin 325 mg tablet 325 mg PO DAILY RF: 0 bumetanide 1 mg tablet 1 mg PO DAILY RF: 0 cilostazol 100 mg tablet 100 mg PO BID RF: 0 diclofenac sodium [Voltaren] 1 % gel 4 g topical QID PRN (Reason: Pain) RF: 0 fluticasone propionate 50 mcg/actuation blister with device 2 inh inhalation DAILY RF: 0 gabapentin 300 mg capsule 300 mg PO BEDTIME RF: 0 Lantus U-100 Insulin 100 unit/mL solution 22 unit SUBCUT DAILY RF: 0 magnesium oxide 400 mg magnesium capsule 400 mg PO DAILY RF: 0 primidone 50 mg tablet 150 mg PO .Q NIGHTLY RF: 0 rosuvastatin 40 mg tablet 40 mg PO DAILY RF: 0 tamsulosin 0.4 mg capsule 0.4 mg PO DAILY RF: 0 testosterone cypionate [Depo-Testosterone] 200 mg/mL oil 200 mg IM .Q 14 DAYS RF: 0 sildenafil [Viagra] 100 mg tablet 100 mg PO DAILY PRN (Reason: Sexual Activity) RF: 0 ascorbic acid (vitamin C) 1,000 mg tablet extended release 1,000 mg PO DAILY RF: 0 zinc gluconate 100 mg tablet 50 mg PO DAILY RF: 0 Discharge Diet: Cardiac and Diabetic Patient Instructions: Peripheral Vascular Angioplasty (DC) Activity Restrictions/Additional Instructions: Do not lift more than a gallon of milk for next 3 days. You will be scheduled to perform angioplasty of your right leg from below the knee approach in 2 to 3 weeks. Please schedule patient in 2 to [address] Herrera for peripheral angiogram of the right leg for lifestyle limiting claudication. Discharge Attestations Time Spent in Discharge Care*: less than 30 min Specific Discharge Activities: educating patient Quality Metrics Clinical Quality Measures During this hospital stay, did patient experience: None Coding Level of Care Code New Pt Acute Chg FW DC note Patient Type New Medical Decision Making Moderate Complexity
[2020-06-25 08:33] LABS: Anion Gap 12.4 (5-19); Blood Urea Nitrogen 21 mg/dL (8-23); Calcium 9.5 mg/dL (8.5-10.5); Carbon Dioxide 27 mmol/L (22-29); Chloride 101 mmol/L (98-107); Glomerular Filtration Rate 55.1 mL/min (90-130); Glucose 159 mg/dL (65-115); Osmolality Calculated 288 mOsm/kg (285-295); Potassium 4.4 mmol/L (3.5-5.1); Sodium 136 mmol/L (136-145)
--- NOTE | 2020-06-25 10:19 | PC.NURSE ---
dr dick in to see pt.discharge orders in and explained to pt.he verb understanding of instructions.discharged via w/c to exit at this time.sister to drive pt home
== END 2020-06-25 10:20 | disposition home or self-care (01) ==
LOC: CCL 07:35 → CSU 06-25 07:32
PROVIDERS: PCP Family Medicine; Visit Provider Internal Medicine Cardiovascular Disease
DX: I73.9 Peripheral vascular disease, unspecified (principal); I77.1 Stricture of artery; I25.10 Atherosclerotic heart disease of native coronary artery without angina pectoris; E78.5 Hyperlipidemia, unspecified; Z87.891 Personal history of nicotine dependence; Z79.82 Long term (current) use of aspirin; E11.22 Type 2 diabetes mellitus with diabetic chronic kidney disease; I12.9 Hypertensive chronic kidney disease with stage 1 through stage 4 chronic kidney disease, or unspecified chronic kidney disease; N18.9 Chronic kidney disease, unspecified
CPT/HCPCS: 36415; 36416; 37224; 75625; 75716; 76937; 80048; 82962; 85025; 85730; 93998; 96372; C1725; C1769; C1887; C1894; J1644; J1815; J2250; J3010; J7030; J7050; Q0163; Q9967

== ENCOUNTER → 2020-07-02 15:30 | Outpatient (BNVA) | payer OTHER, MEDICARE, SELFPAY | PROVIDERS: PCP Family Medicine; Visit Provider Nurse Practitioner Family | DX: I73.9 Peripheral vascular disease, unspecified (principal) | CPT/HCPCS: 80048 ==

== ENCOUNTER → 2020-07-12 15:05 | Outpatient (BNVA) | payer OTHER, MEDICARE, SELFPAY | PROVIDERS: PCP Family Medicine; Visit Provider Internal Medicine Cardiovascular Disease | DX: Z20.822 Contact with and (suspected) exposure to COVID-19 (principal); I73.9 Peripheral vascular disease, unspecified | CPT/HCPCS: 87635 ==

== ENCOUNTER 2020-07-18 09:01 | Day surgery (SDC) | payer OTHER, MEDICARE, SELFPAY ==
[2020-07-18] VITALS (30 sets, daily range): BP systolic 123–177; BP diastolic 77–105; PULSE 67–95; RESP 12–23; TEMP 36.4–37.1; O2SAT 93–97; BMI 27.9
--- NOTE | 2020-07-18 09:00 | XACV_ITS ---
Ht: 180 cm Wt: 96 kg BSA: 2.22 m2 Any Known Allergies: No known allergies Gender: Male : 1955 Exam Type: Invasive Peripheral Vascular Procedure(s): Procedure Description: Peripheral Cath Diagnostic Procedure Procedure Description: Peripheral vascular Intervention Procedure Description: PV Balloon Exam Priority: Routine Lower Extremity Interventional Findings Indication for angiogram through posterior tibial approach of the right leg: Staged percutaneous angioplasty through posterior tibial approach. Due to lifestyle limiting claudication despite of optimization management and highly calcified chronic occlusion in the distal SFA to proximal popliteal artery of the right leg . Through right posterior tibial approach in order to revascularize distal right SFA and proximal popliteal artery after failing contralateral left common femoral artery approach patient was brought in to the [facility]. Through posterior tibial artery approach we were able to cross the distal right SFA and proximal popliteal lesion after somewhat difficulty. It was treated with multiple balloon angioplasty resulted in successful treatment of the lesion with good angiographic results. Flow through the SFA popliteal and the tibial arteries was restored. Good anterior posterior tibial pulses were palpable post procedure. Please see inventory for balloons and instruments. . Recommendations 1-Return to inpatient for close monitoring and routine cath care 2-Risk factor modification for secondary prevention 3-Statin and aspirin 81 mg life--long, if tolerated 4-Continue Plavix 75mg p.o. daily for at least one month for PAD perspective. 5-Continue optimal medical management 6-Follow up with Dr. Herrera in four weeks and your primary care in 10 days. Hemodynamic Data Phase:Rest AO : 116.0 / 69.0 ( 86.0 ) @ 11:34:00 AM 74.0 / 47.0 ( 56.0 ) @ 11:46:00 AM 124.0 / 62.0 ( 76.0 ) @ 11:46:00 AM 91.0 / 61.0 ( 72.0 ) @ 11:49:00 AM 123.0 / 79.0 ( 89.0 ) @ 11:52:00 AM 99.0 / 66.0 ( 78.0 ) @ 11:53:00 AM Access Site Site: Right Femoral artery Sheath Size: 6 Fr Hemost... Method: Manual Compression Hemost... Success: Successful Site: Right Femoral artery Sheath Size: 4 Fr Hemost... Method: Suture Hemost... Success: Successful Procedure Details Findings Procedure Consent Obtained. Pre-Procedure Time Out. Identified patient by full name and date of as verbalized by the patient/guarantor. Does the consent match the physician's order: Yes. Accurate & Complete Informed Consent: Yes. Inpatient/Outpatient History & Physical on Chart: Yes. If H&P is completed, is and addenduem needed: No; If yes, is the addendum complete: N/A. Visualize and Verify Site with Patient/Guarantor: N/A. Relevant Radiology Images available: Yes. Pre-op teaching completed and patient verbalized understanding. The risks, benefits, and alternatives of sedation and/or procedure were discussed by physician. The patient agrees to continue. Procedure started. Correct patient, site and procedure confirmed by cath team. PERRLA. Strong, equal hand attendance officer bilaterally. Lungs clear x 5 lobes. IV Site on Arrival: 20 gauge in the right forearm. IV Fluids: 0.9% NaCl at KVO. 0 mL infused prior to cardiac catheterization technician. Pre Procedural Pulses: right dorsalis pedis was Doppled. Pre Procedural Pulses: right posterior tibial was Doppled. Pre Procedural Pulses: left dorsalis pedis was 2+. Pre Procedural Pulses: left posterior tibial was 1+. Oxygen started at 2liters/min via nasal canula. right groin and right PT was prepped with chloroprep then draped in the usual sterile fashion. Physician notified. Baseline sample Acquired. HR: 72 BPM. Physician arrived. Physician scrubbed in. Immediate Pre-Procedure Time Out. Correct Patient: Yes; Correct Procedure: Yes; Correct Site: Yes; Correct Patient Position: Yes; Correct Supplies: Yes; Dried Flammable Prep: Yes; Blood Products Available: N/A;. Lidocaine 1% infiltrated to the right PT. Ultrasound used for access. Arterial access obtained with micropuncture set. glidewire inserted through the sheath. seeker inserted OTW. wire out. contrast hand injected through the seeker catheter. wire and seeker removed. o2 sat drawn from the sheath. Result= 87.2. contrast hand injected through the sheath to determine venous or arterial access. sheath removed and manual pressure applied. Ultrasound called for assistance. Tatyana arrived from ultrasound. Arterial access obtained. Supply: Micropuncture Pedal Access Kit. glidewire inserted through the sheath. Sheath upsized to a 6 Fr. seeker inserted OTW. Baseline sample Acquired. HR: 77 BPM. wire out. contrast hand injected through the seeker catheter. glidewire inserted. wire out. contrast hand injected through the seeker catheter. glidewire inserted. seeker out OTW. side port of the arterial sheath hooked up to heparnized saline at KVO. Inflation number : 1 A AB ARMADA 35 OTW [id number] was prepped and advanced across the Popliteal, Right Popliteal, Right , then inflated to 8 NALDO for 0:24 seconds. Inflation number: 2 The AB ARMADA 35 OTW [id number] was reinflated across the Popliteal, Right Popliteal, Right, to 12 NALDO for 1:02 seconds. Inflation number: 3 The AB ARMADA 35 OTW [id number] was reinflated across the Popliteal, Right Popliteal, Right, to 12 NALDO for 1:04 seconds. balloon out OTW. seeker inserted OTW. wire out. contrast hand injected through the catheter. Results checked. glidewire inserted through the catheter. seeker removed OTW. Inflation number : 4 A AB ARMADA 35 OTW [id number] was prepped and advanced across the Popliteal, Right Popliteal, Right , then inflated to 10 NALDO for 1:03 seconds. Balloon out. wire out. results checked. seeker out. Post Procedure: Pulses reassessed and unchanged. PERRLA. Strong, equal hand attendance officer bilaterally. No VTE prophylaxis required. Medication's Wasted: Nitro = 49.2 mcg. Medication's Wasted: Heparin = 1000 units. Medication's Wasted: Lidocaine 1% = 10 mL. Medication's Wasted: Other = Fentanyl 50 cmg. Sheath(s) sutured into position with 2-0 silk and sterile 4x4's and Op-site applied over the site. No oozing or signs and symptoms of hematoma noted. Arterial sheath flushed and connected to tranducer and pressure bag with heparinized saline. Total IV fluids: 100 mL. Contrast type used: Visipaque 320 mgI/mL, 500 mL bottle. Estimated blood loss: 5mL-10mL. Procedure completed. Patient transferred by bed to 1st floor. A Suture was successful obtaining hemostatsis at the Right PT artery insertion site. A Manual Compression was successful obtaining hemostatsis at the Right PT vein insertion site. Procedure Medications Start: 11:06 AM Stop: 11:06 AM Medication: Versed Amount: 1 mg Route: I.V. Start: 11:06 AM Stop: 11:06 AM Medication: Fentanyl Amount: 50 mcg Route: I.V. Start: 11:09 AM Stop: 11:09 AM Medication: Versed Amount: 1 mg Route: I.V. Start: 11:09 AM Stop: 11:09 AM Medication: Fentanyl Amount: 50 mcg Route: I.V. Start: 11:25 AM Stop: 11:25 AM Medication: Versed Amount: 1 mg Route: I.V. Start: 11:31 AM Stop: 11:31 AM Medication: Fentanyl Amount: 50 mcg Route: I.V. Start: 11:35 AM Stop: 11:35 AM Medication: Versed Amount: 1 mg Route: I.V. Start: 11:52 AM Stop: 11:52 AM Medication: Versed 1 mg and Fentanyl 25 mcg Amount: 1 Route: I.V. Start: 12:10 PM Stop: 12:10 PM Medication: Fentanyl Amount: 25 mcg Route: I.V. Start: 12:29 PM Stop: 12:29 PM Medication: Versed 1 mg and Fentanyl 25 mcg Amount: 1 Route: I.V. Start: 12:37 PM Stop: 12:37 PM Medication: Nitrogylcerin Amount: 400 mcg Route: I.A. Start: 12:52 PM Stop: 12:52 PM Medication: Nitrogylcerin Amount: 400 mcg Route: I.A. Start: 12:52 PM Stop: 12:52 PM Medication: Versed 1 mg and Fentanyl 25 mcg Amount: 1 Route: I.V. Start: 12:56 PM Stop: 12:56 PM Medication: Heparin Amount: 5000 units Route: I.V. I, the attending physician, have reviewed and verified all procedure medications. Yes, all medications given per verbal order History/Risk Factors Hypertension: Yes Dyslipidemia: Yes Peripheral Arterial Disease (PAD): Yes Obesity: No Renal Disease: No Tobacco Use: Current/Recent(w/in 1 year) Prior Interventions PCI: No CABG: No Valve Surgery: No Report Signatures Finalized by Deonte Herrera MD on 08/01/2020 06:43 AM
[2020-07-18] MEDS: diphenhydrAMINE 50 mg Capsule PO (10:00)
--- NOTE | 2020-07-18 10:45 | W.PM.OPSUD ---
Surgery/Procedure H&P Update DATE OF PROCEDURE: July 18, 2020 DATE H&P PERFORMED: 06/24/20 H&P UPDATE INFORMATION: I have reviewed H&P completed within last 30 days, I have examined patient prior to procedure and No changes to prior documentation PREOP DIAGNOSIS: Lifestyle limiting claudication of right leg chronically occluded popliteal PLANNED PROCEDURE: Operation Date: 07/18/20 10:00 Proposed Procedures p Peripheral Diagnostic [id number] I73.9(Right) - Deonte Herrera MD PATIENT REASSESSED PRIOR TO SEDATION, WITH NO CHANGE NOTED: Yes PHYSICAL EXAM: alert, oriented x 3 and clear to auscultation bilaterally AIRWAY EVAL/ANESTHESIA PLAN: ASA II, Risks, benefits & alternatives of sedation and/or procedure discussed and Patient agrees to continue as planned
--- NOTE | 2020-07-18 10:54 | USCV_ITS ---
Gregory Mukherjee Age: 65 Gender: M : 1955 Exam Date: 07/18/2020 10:56 Ordering Phys: Deonte Herrera MD ([email or web address]) Technologist: MS Exam Location: Echo Lab Indication: Findings Ultrasound guided access of right posterior tibil artery in laborer/key man. The Artery was found to be patent with monophasic, low velocity waveforms. Conclusions Patent posterior tibial artery. Abnormal Doppler waveforms, may suggest obstructive arterial disease Dr Kerri Wallace MD [facility] (Electronically Signed) Final Date: 18 July 2020 18:33 S
[2020-07-18] MEDS: sodium chloride 0.9% 1,000 ML 100 ML IV ×2 (14:13→22:48)
--- NOTE | 2020-07-18 14:41 | PC.NURSE ---
Received report from JOSÉ MIGUEL Hartley. Patient is doing well and VS are stable. No hematoma present on admission to [facility] and no bleeding present. Patient has been oriented to room and is connected to telemetry and blood pressure measurements Q15m. Nurse will continue to monitor.
[2020-07-18 17:26] LABS: Partial Thromboplastin Time 29.1 SECONDS (23.9-36.7)
[2020-07-18] MEDS: cilostazol 100 mg Tablet PO (18:44)
[2020-07-18] MEDS: HYDROcodone-acetaminophen 5-325 mg Tablet 1 TAB PO (20:12)
[2020-07-18] MEDS: gabapentin 300 mg Capsule PO (20:12)
[2020-07-18] MEDS: losartan 50 mg Tablet PO (20:14)
[2020-07-19] VITALS (7 sets, daily range): BP systolic 129–164; BP diastolic 80–93; PULSE 70–84; RESP 13–18; TEMP 36.4–37; O2SAT 92–95
--- NOTE | 2020-07-19 02:19 | PC.NURSE ---
Shift Summary Patient alert and oriented, complaining of pain in his lower leg, gave him hydrocodone and he has been resting since, Patient sleeping on cpap mask and has not had any issues so far. Transferring care to another nurse at 0230 am, sheath pulled at 1800 so patient able to ambulate and resume normal activity at midnight
[2020-07-19 04:50] LABS: Eosinophils # 0.3 10^3/uL (0.0-0.8); Eosinophils % 7.9 %; Hematocrit 36.6 % (42.0-52.0); Hemoglobin 12.3 g/dL (11.7-16.6); Lymphocytes % 24.6 %; Mean Corpuscular HGB Conc 33.6 g/dL (30.0-36.0); Mean Corpuscular Hemoglobin 30.8 pg (28.0-34.0); Mean Corpuscular Volume 91.7 fL (80-94); Mean Platelet Volume 8.5 fL (7.4-10.4); Monocytes # 0.6 10^3/uL (0.2-0.9); Neutrophils # 2.08 10^3/uL (1.8-7.7); Neutrophils % 51.3 %; Nucleated Red Blood Cells % 0 %; Platelet Count 137 10^3/cmm (130-400); Red Blood Count 3.99 10^6/uL (4.1-5.3); Red Cell Distribution Width 13.2 % (12.1-15.1); White Blood Count 4.1 10^3/uL (4.0-10.0)
[2020-07-19 05:15] LABS: Anion Gap 11.2 (5-19); Blood Urea Nitrogen 23 mg/dL (8-23); Calcium 8.7 mg/dL (8.5-10.5); Carbon Dioxide 25 mmol/L (22-29); Chloride 105 mmol/L (98-107); Glomerular Filtration Rate 43.3 mL/min (90-130); Glucose 171 mg/dL (65-115); Osmolality Calculated 292 mOsm/kg (285-295); Potassium 4.2 mmol/L (3.5-5.1); Sodium 137 mmol/L (136-145)
[2020-07-19] MEDS: metoprolol tartrate 50 mg Tablet PO (09:40)
[2020-07-19] MEDS: aspirin 325 mg Tablet PO (09:42)
[2020-07-19] MEDS: bumetanide 1 mg Tablet PO (09:42)
[2020-07-19] MEDS: allopurinol 100 mg Tablet 50 MG PO (09:42)
[2020-07-19] MEDS: amlodipine 10 mg Tablet PO (09:42)
[2020-07-19] MEDS: atorvastatin 40 mg Tablet 80 MG PO (09:42)
[2020-07-19] MEDS: baclofen 10 mg Tablet PO (09:43)
[2020-07-19] MEDS: tamsulosin 0.4 mg Capsule PO (09:43)
[2020-07-19] MEDS: cilostazol 100 mg Tablet PO (09:43)
[2020-07-19] MEDS: losartan 50 mg Tablet 100 MG PO (09:47)
[2020-07-19] MEDS: insulin glargine 100 units/1 mL 22 UNIT SUBCUT (10:14)
[2020-07-19 10:23] LABS: Glucose Point of Care 286 mg/dL (70-110)
--- NOTE | 2020-07-19 13:02 | P.DS_ITS ---
Discharge Providers Date of Discharge: July 19, 2020 Attending Provider at Discharge: Deonte Herrera MD Primary Care Provider: Jackelin Cardona MD Reason for Visit Reason for Visit: periphearl right leg Brief History: 55-year-old male past medical history significant for peripheral arterial disease hypertension hyperlipidemia for mid popliteal chronically occluded right side lesion underwent peripheral angiogram and intervention to posterior tibial approach. After somewhat difficulty we were able to cross the lesion multiple balloon angioplasties were performed. Good flow was achieved. Patient tolerated procedure well. There was no overnight event. Posterior tibial insertion site looks good right leg is slightly swollen. He has walk around in the hallway without any difficulty. He is being discharged home. We will discharge him on Plavix for 3 months. Physical Exam Narrative: EXAM NARRATIVE: GENERAL: Patient is alert, awake and oriented x3. NECK: No jugular vein distension. HEENT: No cyanosis. No icterus. No pallor. HEART: Regular S1 and S2. No murmur, rub or gallop. LUNGS: Clear to auscultate bilaterally. ABDOMEN: Soft, nontender and nondistended. Positive bowel sounds. No guarding, rebound or tenderness. CENTRAL NERVOUS SYSTEM: Grossly nonfocal. EXTREMITIES: Lower extremities without edema bilaterally. Pulses palpable in the lower extremities, both dorsalis pedis and posterior tibial. Const: COMMON NORMALS: alert Resp: COMMON NORMALS: clear to auscultation bilaterally AUSCULTATION: clear to auscultation bilaterally Neuro: SENSORIUM/ORIENTATION: Yes alert Discharge Data Data Completed and Pending: Completed Studies During Hospitalization Category Date Time Status CV guidevascular BROADCAST PROGRAM DIRECTOR ONLY Rout ine Ultrasound 07/18/20 10:54 Completed Pending at discharge Category Date Time Status BROADCAST PROGRAM DIRECTOR request for service Routin e Exams 07/18/20 09:00 Taken Labs from last 24 hours 07/19/20 07/19/20 07/19/20 10:17 04:37 04:37 WBC 4.1 RBC 3.99 L Hgb 12.3 Hct 36.6 L MCV 91.7 MCH 30.8 MCHC 33.6 RDW 13.2 Plt Count 137 MPV 8.5 Neut % (Auto) 51.3 Lymph % (Auto) 24.6 Atlantic % (Auto) 15.0 Eos % (Auto) 7.9 Baso % (Auto) 1.0 Neut # (Auto) 2.08 Lymph # (Auto) 1.0 Atlantic # (Auto) 0.6 Eos # (Auto) 0.3 Baso # (Auto) 0.0 Nucleated RBC % (a uto) 0 Nucleated RBCs # 0.0 APTT Sodium 137 Potassium 4.2 Chloride 105 Carbon Dioxide 25 Anion Gap 11.2 BUN 23 Creatinine 1.6 H GFR Calculation 43.3 L Glucose 171 H POC Glucose 286 H Calculated Osmolal ity 292 Calcium 8.7 07/18/20 17:00 WBC RBC Hgb Hct MCV MCH MCHC RDW Plt Count MPV Neut % (Auto) Lymph % (Auto) Atlantic % (Auto) Eos % (Auto) Baso % (Auto) Neut # (Auto) Lymph # (Auto) Atlantic # (Auto) Eos # (Auto) Baso # (Auto) Nucleated RBC % (a uto) Nucleated RBCs # APTT 29.1 Sodium Potassium Chloride Carbon Dioxide Anion Gap BUN Creatinine GFR Calculation Glucose POC Glucose Calculated Osmolal ity Calcium Vitals: Last Vital Signs Temp 97.5 F L 07/19/20 10:54 Pulse 71 07/19/20 10:54 Resp 16 07/19/20 10:54 BP 129/87 07/19/20 10:54 Pulse Ox 95 07/19/20 10:54 Discharge Plan Discharge Patient Disposition: Home Condition: Stable Prescriptions: New aspirin 325 mg Tablet 81 mg PO DAILY Qty: 90 RF: 3 clopidogrel 75 mg tablet 75 mg PO DAILY Qty: 90 RF: 0 Continued baclofen 10 mg tablet 10 mg PO DAILY RF: 0 glipizide 10 mg tablet 10 mg PO DAILY RF: 0 metoprolol tartrate 50 mg tablet 50 mg PO DAILY RF: 0 albuterol sulfate 90 mcg/actuation HFA aerosol inhaler 2 puff inhalation Q6H PRN (Reason: Shortness Of Breath Or Wheezing) RF: 0 albuterol sulfate 2.5 mg/0.5 mL solution for nebulization 2.5 mg inhalation Q20M RF: 0 allopurinol 100 mg tablet 50 mg PO .EVERY OTHER DAY RF: 0 alogliptin 12.5 mg tablet 12.5 mg PO DAILY RF: 0 alprostadil 20 mcg kit 20 mcg intra-cavernosal .PRN RF: 0 amlodipine 10 mg tablet 10 mg PO DAILY RF: 0 aspirin 325 mg tablet 325 mg PO DAILY RF: 0 bumetanide 1 mg tablet 1 mg PO DAILY RF: 0 diclofenac sodium [Voltaren] 1 % gel 4 g topical QID PRN (Reason: Pain) RF: 0 fluticasone propionate 50 mcg/actuation blister with device 2 inh inhalation DAILY RF: 0 gabapentin 300 mg capsule 300 mg PO BEDTIME RF: 0 Lantus U-100 Insulin 100 unit/mL solution 22 unit SUBCUT DAILY RF: 0 magnesium oxide 400 mg magnesium capsule 400 mg PO DAILY RF: 0 primidone 50 mg tablet 150 mg PO .Q NIGHTLY RF: 0 rosuvastatin 40 mg tablet 40 mg PO DAILY RF: 0 tamsulosin 0.4 mg capsule 0.4 mg PO DAILY RF: 0 testosterone cypionate [Depo-Testosterone] 200 mg/mL oil 200 mg IM .Q 14 DAYS RF: 0 sildenafil [Viagra] 100 mg tablet 100 mg PO DAILY PRN (Reason: Sexual Activity) RF: 0 ascorbic acid (vitamin C) 1,000 mg tablet extended release 1,000 mg PO DAILY RF: 0 zinc gluconate 100 mg tablet 50 mg PO DAILY RF: 0 losartan 100 mg tablet 150 mg PO DAILY Qty: 45 RF: 3 Discontinued cilostazol 100 mg tablet 100 mg PO BID RF: 0 Discharge Orders: Discharge Order (Routine); Ordered 07/19/20 Ordered By: Deonte Herrera Referrals: Deonte Herrera MD [Physician] - 3 months (YOU HAVE A FOLLOW UP APPOINTMENT WITH DR. HERRERA ON September AT 100PM. IF YOU HAVE ANY QUESTIONS OR NEED TO RESCHEDULE PLEASE CALL [phone].) Anuel Mg FNP [Nurse Practitioner] - (YOU HAVE A FOLLOW UP APPOINTMENT WITH [facility] ON JULY 26 AT 945. IF YOU HAVE ANY QUESTIONS OR NEED TO RESCHEDULE PLEASE CALL [phone].) Discharge Diet: Cardiac Discharge Activity: Increase activity as tolerated Patient Instructions: Aspirin (By mouth), Clopidogrel (By mouth), Peripheral Vascular Angioplasty (DC), Post Angiogram Home Care Instructions Activity Restrictions/Additional Instructions: Follow-up with Anuel Mg in 7 days. Follow-up with Dr. Herrera in 3 months. Discharge Attestations Time Spent in Discharge Care*: less than 30 min Specific Discharge Activities: educating patient Quality Metrics Clinical Quality Measures During this hospital stay, did patient experience: None Coding Level of Care Code Established Pt Acute Chg FW DC note Patient Type Established History Expanded Problem Focused Exam Expanded Problem Focused Medical Decision Making Moderate Complexity
--- NOTE | 2020-07-19 13:40 | PC.CHAP ---
Pastoral Care Encounter/Spiritual Assessment Type of Contact [] Declined supervisor food checkers and cashiers visit [] Patient/Family/Request visit [] Outpatient visit [] Follow-up visit [] Physician referral [] Code/Alert [] Routine visit [] Staff referral [] Actively dying [] Patient sleeping [] Family support [] [] Out of room [] Palliative care [] [xx] Receiving care in room [] Pre-surgical visit [] Trauma [] Long length of stay [] ICU visit [] Other: Relational/Emotional Strength [] Patient feels connected with others/family/visitors/staff [] Distress [] Loneliness/isolation [] Abandonment Spirituality of Patient [] Person of Magda [] Attends Quaker of their Magda [] Believes in Prayer [] Reads Bible or Jainism materials [] There are Spiritual issues to be addressed Fuse Cup Expander Interventions [] Prayer [] Active listening [] Non-anxious presence [] Spiritual/emotional support [] Crisis/trauma care [] Spiritual counseling [] Bereavement support [] Provided bereavement packet [] Provided Bible/devotional materials [] Provided toy/stuffed animal, coloring book to patient or family member [] Provided Communion [] Anointing/[place] [] Salvation [] Completed spiritual assessment [] Other: Impact on Illness or Injury [] Angry [] Fearful [] Anxious [] Often cries [] Exhaustion [] Unable to work [] Unable to attend yazdanism [] Unable to walk/stand [] Unable to read [] Unable to drive [] Unable to eat/drink [] Unable to sleep [] Unable to be with family [] Patient intubated [] Other: Summary Medical staff were with this patient. Needs follow up. NOTE: Patient's roommate was not happy to have supervisor food checkers and cashiers in room even to visit this patient. The non-Latter-Day did not want to hear any prayer from anyone, especially a woman. Fuse Cup Expander backed out and did not attempt a second chance to visit this patient, Gregory Mukherjee. Time spent with patient
[2020-07-19] MEDS: clopidogrel 300 mg Tablet PO (13:44)
--- NOTE | 2020-07-19 14:45 | PC.NURSE ---
Patients IV d/c catheter intact, pressure dressing applied. Patient d/c instructions given to him and spouse. Patient had no questions or concerns regarding d/c education. Pt VS stable upon departure and patient taken out to Main entrance via wheelchair.
== END 2020-07-19 14:50 | disposition home or self-care (01) ==
LOC: CCL 09:02 → CSU 07-19 08:19
PROVIDERS: PCP Family Medicine; Visit Provider Internal Medicine Cardiovascular Disease
DX: I73.9 Peripheral vascular disease, unspecified (principal); I10 Essential (primary) hypertension; E78.5 Hyperlipidemia, unspecified; Z95.1 Presence of aortocoronary bypass graft; F17.210 Nicotine dependence, cigarettes, uncomplicated
CPT/HCPCS: 36415; 36416; 37224; 76937; 80048; 82962; 85025; 85730; C1725; C1769; C1887; C1894; J1644; J1815; J2250; J3010; J3490; J7030; Q0163; Q9967

== ENCOUNTER → 2020-07-26 11:10 | Outpatient (BNVA) | payer OTHER, SELFPAY | PROVIDERS: PCP Family Medicine; Visit Provider Nurse Practitioner Family | DX: I73.9 Peripheral vascular disease, unspecified (principal) | CPT/HCPCS: 80048 ==

== ENCOUNTER 2021-04-17 08:16 | Outpatient (CLI) | payer OTHER, SELFPAY ==
--- NOTE | 2021-04-17 08:45 | USCV_ITS ---
Gregory Mukherjee Age: 66 Gender: M : 1955 Exam Date: 04/17/2021 08:32 Ordering Phys: Fabiola Mg Technologist: DAVID Exam Location: [facility] [place] Indication: CLAUDICATION Risk Factors: Previous Vascular Surgery: RIGHT LEFT BP: 160.0 / 94.00 BP: 164.0/ 94.00 0 0 Waveform Velocity (cm/s) Velocity (cm/s) Waveform Biphasic 78.3 Iliac Prox 90.9 Biphasic Biphasic 78.9 Iliac Mid 113.1 Biphasic Biphasic Iliac Distal Biphasic 91.3 156.5 Biphasic 149.9 INTEGRATION SOFTWARE ENGINEER 97.3 Biphasic Biphasic 71.7 SFA Prox 72.6 Biphasic Monophasic 67.5 SFA Mid 73.4 Biphasic Monophasic 47.3 SFA Dist 59.8 Biphasic Monophasic 324.4 POP 190.5 Biphasic Monophasic 27.8 DOOR AND ARRIVAL ATTENDANT 85.4 Monophasic Monophasic 33.6 DPA 44.3 Monophasic 0.5 ANIBAL 0.7 FINDINGS Abnormal resting ANIBAL on the right side of 0.5 Markedly elevated velocity in the popliteal artery with flow turbulence suggesting high-grade stenosis Monophasic and continuous waveforms in the dorsalis pedis artery on the right side Abnormal resting ANIBAL 0.7 on the left side Elevated Doppler flow velocity in the popliteal artery with some flow turbulence CONCLUSIONS Abnormal resting ANIBAL on the right side suggesting high-grade stenosis in the popliteal artery with the features of collateral filling of the dorsalis pedis artery and markedly diminished flow in the posterior tibial artery. Abnormal resting ANIBAL of 0.7 on the left side. Elevated velocity in the popliteal arteries suggesting greater than 60% stenosis . Dr Kerri Wallace MD FAC (Electronically Signed) Final Date: 17 April 2021 19:17 S
== END 2021-04-17 08:17 | disposition home or self-care (01) ==
LOC: RAD 08:19
PROVIDERS: PCP Family Medicine; Visit Provider Nurse Practitioner Family
DX: I73.9 Peripheral vascular disease, unspecified (principal)
CPT/HCPCS: 93925

== ENCOUNTER → 2021-04-25 11:08 | Outpatient (BNVA) | payer OTHER, SELFPAY | PROVIDERS: PCP Family Medicine; Visit Provider Internal Medicine Cardiovascular Disease | DX: Z01.812 Encounter for preprocedural laboratory examination (principal); Z20.822 Contact with and (suspected) exposure to COVID-19 | CPT/HCPCS: 87635 ==

== ENCOUNTER 2021-05-09 05:38 | Outpatient (CLI) | payer OTHER, SELFPAY ==
[2021-04-25 10:55] LABS: Basophils # 0.1 10^3/uL (0.0-0.1); Basophils % 1.8 %; Eosinophils # 0.2 10^3/uL (0.0-0.8); Hematocrit 37.6 % (42.0-52.0); Lymphocytes # 1.1 10^3/uL (0.8-4.8); Lymphocytes % 27.8 %; Mean Corpuscular HGB Conc 34.6 g/dL (30.0-36.0); Mean Corpuscular Hemoglobin 32.2 pg (28.0-34.0); Mean Corpuscular Volume 93.1 fl (80-94); Mean Platelet Volume 9.3 fL (7.4-10.4); Monocytes # 0.6 10^3/uL (0.2-0.9); Monocytes % 13.8 %; Neutrophils # 2.06 10^3/uL (1.8-7.7); Neutrophils % 51.3 %; Nucleated Red Blood Cells % 0 %; Platelet Count 160 10^3/cmm (130-400); Red Blood Count 4.04 10^6/uL (4.1-5.3); Red Cell Distribution Width 12.3 % (12.1-15.1)
[2021-04-25 11:03] LABS: INR 0.94 (0.83-1.21); Prothrombin Time (Patient) 12.9 Seconds (12.0-15.1)
[2021-04-25 11:31] LABS: Anion Gap 20.2 (5-19); Blood Urea Nitrogen 50 mg/dL (8-23); Calcium 10.9 mg/dL (8.5-10.5); Carbon Dioxide 23 mmol/L (22-29); Chloride 95 mmol/L (98-107); Glomerular Filtration Rate 37.7 mL/min (90-130); Glucose 311 mg/dL (65-115); Osmolality Calculated 303 mOsm/kg (285-295); Potassium 4.2 mmol/L (3.5-5.1); Sodium 134 mmol/L (136-145)
[2021-05-09] MEDS: diphenhydrAMINE 50 mg Capsule PO (06:45)
[2021-05-09 06:48] VITALS: BMI 29.1
[2021-05-09 06:49] VITALS: BP 204/119; PULSE 71; RESP 18; TEMP 36.7; O2SAT 94
--- NOTE | 2021-05-09 07:02 | SUR.PREOP ---
Creatnine 1.8. aware and requests 500 ml bolus prior to cath. Verbal order received. Administered as requested at 0640.
[2021-05-09 07:11] LABS: SARS Covid-2 Antigen Positive (Negative)
--- NOTE | 2021-05-09 07:51 | SUR.PREOP ---
Covid came back Positive. MD aware. Case Cancelled today. Patient/Family updated and informed to quarantine per CDC guidelines. Discharged in stable condition.
== END 2021-05-09 05:39 | disposition home or self-care (01) ==
PROVIDERS: PCP Family Medicine; Visit Provider Internal Medicine Cardiovascular Disease
DX: I73.9 Peripheral vascular disease, unspecified (principal); Z53.9 Procedure and treatment not carried out, unspecified reason
CPT/HCPCS: 80048; 85025; 85610; 87426; J2250; J3010; Q0163

== ENCOUNTER → 2021-05-26 11:44 | Outpatient (BNVA) | payer OTHER, SELFPAY | PROVIDERS: PCP Family Medicine; Visit Provider Internal Medicine Cardiovascular Disease | DX: Z20.822 Contact with and (suspected) exposure to COVID-19 (principal); I73.9 Peripheral vascular disease, unspecified | CPT/HCPCS: 87635 ==

== ENCOUNTER 2021-05-30 13:15 | Observation (INO) | payer OTHER, SELFPAY ==
[2021-05-30] VITALS (25 sets, daily range): BP systolic 136–180; BP diastolic 72–102; PULSE 66–89; RESP 10–20; TEMP 36.7–36.8; O2SAT 95–100; BMI 29.1
[2021-05-30 08:02] LABS: Basophils % 0.4 %; Eosinophils % 0.2 %; Hematocrit 32.4 % (42.0-52.0); Hemoglobin 11.3 g/dL (11.7-16.6); Lymphocytes # 0.9 10^3/uL (0.8-4.8); Lymphocytes % 19.9 %; Mean Corpuscular HGB Conc 34.9 g/dL (30.0-36.0); Mean Corpuscular Hemoglobin 32.2 pg (28.0-34.0); Mean Corpuscular Volume 92.3 fl (80-94); Mean Platelet Volume 8.9 fL (7.4-10.4); Monocytes # 0.4 10^3/uL (0.2-0.9); Monocytes % 8.2 %; Neutrophils # 3.19 10^3/uL (1.8-7.7); Neutrophils % 70.6 %; Nucleated Red Blood Cells % 0 %; Platelet Count 105 10^3/cmm (130-400); Red Blood Count 3.51 10^6/uL (4.1-5.3); White Blood Count 4.5 10^3/uL (4.0-10.0)
[2021-05-30] MEDS: sodium chloride 0.9% 1,000 ML 150 ML IV (08:03)
[2021-05-30 08:26] LABS: Anion Gap 18.1 (5-19); Blood Urea Nitrogen 49 mg/dL (8-23); Calcium 10.1 mg/dL (8.5-10.5); Carbon Dioxide 24 mmol/L (22-29); Chloride 94 mmol/L (98-107); Glomerular Filtration Rate 43.2 mL/min (90-130); Glucose 265 mg/dL (65-115); Osmolality Calculated 296 mOsm/kg (285-295); Potassium 4.1 mmol/L (3.5-5.1); Sodium 132 mmol/L (136-145)
[2021-05-30] MEDS: diphenhydrAMINE 50 mg Capsule PO (11:00)
--- NOTE | 2021-05-30 12:18 | XACV_ITS ---
Wt: 100 kg BSA: 2.29 m2 Any Known Allergies: No known allergies Gender: Male : 1955 Exam Type: Invasive Peripheral Vascular Procedure(s): Procedure Description: Peripheral Cath Diagnostic Procedure Procedure Description: Lower extremities' angiography Exam Priority: Routine Lower Extremity Diagnostic Findings Right lower extremity External iliac artery: Patent Common femoral artery: Patent Profunda femoris: Patent SFA: Patent Visualization of popliteal artery is very difficult because of prosthetic knee. Popliteal artery is critical 95% stenosis that is heavily calcified. Collateral blood flow was developed around it. Below the knee patient has good blood flow with patent TP segment. At least two-vessel runoff downstream. . Conclusions Critical, heavily calcified right popliteal artery stenosis. Difficult visualization because of prosthetic knee joint. Recommendations We will refer for evaluation for a bypass surgery. He had percutaneous revascularization last year and again has developed critical disease. Final decision about revascularization after patient seen by dr Rodriguez in the office. Hemodynamic Data Phase:Rest AO : 164.0 / 67.0 ( 98.0 ) @ 12:54:00 PM 123.0 / 80.0 ( 101.0 ) @ 12:56:00 PM Access Site Site: Left Femoral artery Sheath Size: 6 Fr Hemost... Method: Suture Hemost... Success: Successful Procedure Details Findings Pre-Procedure Time Out. Identified patient by full name and date of as verbalized by the patient/guarantor. Does the consent match the physician's order: Yes. Accurate & Complete Informed Consent: Yes. Inpatient/Outpatient History & Physical on Chart: Yes. If H&P is completed, is and addenduem needed: No; If yes, is the addendum complete: N/A. Visualize and Verify Site with Patient/Guarantor: N/A. Relevant Radiology Images available: No. Pre-op teaching completed and patient verbalized understanding. The risks, benefits, and alternatives of sedation and/or procedure were discussed by physician. The patient agrees to continue. Procedure started. Correct patient, site and procedure confirmed by cath team. PERRLA. Strong, equal hand operating engineer bilaterally. Lungs clear x 5 lobes. IV Site on Arrival: 20 gauge in the right anticubital. IV Fluids: 0.9% NaCl at KVO. 800 mL infused prior to laboratory aide. Pre Procedural Pulses: bilateral dorsalis pedis was 1+. Pre Procedural Pulses: bilateral posterior tibial was Doppled. Oxygen started at 2liters/min via nasal canula. bilateral groins was prepped with chloroprep then draped in the usual sterile fashion. Baseline sample Acquired. HR: 66 BPM. Physician notified. Physician arrived. Equipment: Peripheral. Cardiac Cath Pack. ACIST Manifold Kit Model BT 2000. Heparinized Saline (2 units/mL), 1000 mL bag. Pre op diagnosis: PVD. Physician scrubbed in. Time out performed with cath team. Lidocaine 1% infiltrated to the left groin. Arterial access obtained with micropuncture set. A CORDIS 5F UF catheter 65cm was advanced over the wire. Glidewire inserted and seated in popliteal. Catheter removed over the glide wire. Short 6 fr glidesheath exchanged for 6 fr 45 cm Flexor sheath. Inventory is CK 6 FR FLEXOR SHEATH 45CM. Unable to advance long sheath. Short 6 fr sheath put back in. A JJ 5F RIM 65 cm Diagnostic Catheter was advanced over the wire and used for Lower extremity arteriography. Wire out. Right superficial femoral selected and arteriogram performed. Catheter removed over the standard wire. Physician scrubbed out. A Suture was successful obtaining hemostatsis at the Left Femoral artery insertion site. Sheath(s) sutured into position with 2-0 silk and sterile 4x4's and Op-site applied over the site. No oozing or signs and symptoms of hematoma noted. Arterial sheath flushed and connected to tranducer and pressure bag with heparinized saline. Post Procedure: Pulses reassessed and unchanged. PERRLA. Strong, equal hand operating engineer bilaterally. No VTE prophylaxis required. Medication's Wasted: Lidocaine 1% = 8 mL. Medication's Wasted: Heparin = 4000 units. Medication's Wasted: Other = hydralazine 10 mg. Medication's Wasted: Other = versed 1 mg. Total IV fluids: 100 mL. Post-op diagnosis: critical 99% blockage of right popliteal artery. Estimated blood loss: 5mL-10mL. Complications: none. Responsiveness - Normal response to verbal stimuli; alert and oriented, PERRLA. Airway - Unaffected, no intervention required; spontaneous ventilation. Circulation: W/N/L, pulses unchanged. Nausea/Vomiting: Yes. Procedure completed. Patient transferred by bed to 1st floor. Vital chart was stopped. Procedure Medications Start: 12:36 PM Stop: 12:36 PM Medication: Versed Amount: 1 mg Route: I.V. Start: 12:36 PM Stop: 12:36 PM Medication: Fentanyl Amount: 50 mcg Route: I.V. Start: 12:36 PM Stop: 12:36 PM Medication: Hydralazine Amount: 10 mg Route: I.V. Start: 12:39 PM Stop: 12:39 PM Medication: Versed Amount: 1 mg Route: I.V. Start: 12:41 PM Stop: 12:41 PM Medication: Versed Amount: 1 mg Route: I.V. Start: 12:41 PM Stop: 12:41 PM Medication: Fentanyl Amount: 50 mcg Route: I.V. I, the attending physician, have reviewed and verified all procedure medications. Yes, all medications given per verbal order History/Risk Factors Hypertension: Yes Dyslipidemia: No Peripheral Arterial Disease (PAD): Yes Obesity: No Renal Disease: No Prior Interventions PCI: No CABG: Yes Valve Surgery: No Report Signatures Finalized by Sin Deluca MD on 06/02/2021 12:46 PM
--- NOTE | 2021-05-30 12:28 | W.PM.OPSFHP ---
Same Day Surgery H&P Indication for Procedure/HPI DATE OF PROCEDURE: May 30, 2021 CHIEF COMPLAINT/INDICATIONFOR SURGICAL PROCEDURE: Lifestyle limiting claudication PREOP DIAGNOSIS: Lifestyle limiting claudication of right leg PLANNED PROCEDURE: Operation Date: 05/30/21 07:00 Proposed Procedures p Peripheral Diagnostic(Bilateral) - Sin Deluca M.D Peripheral intervention 55-year-old male past medical history significant for peripheral arterial disease hypertension hyperlipidemia who had a peripheral angiogram and intervention with balloon angioplasty popliteal artery from tibial access on the right side last year has presented again with severe lifestyle limiting claudication. Arterial Doppler shows features of total occlusion of distal SFA/popliteal artery. Plan for peripheral angiogram with possible intervention. ROS CONSTITUTIONAL: No fever chills weight loss or gain or night sweats. [] HEENT: Normocephalic, atraumatic.[] RESPIRATORY: No cough, sputum, hemoptysis or wheezing.[] CARDIOVASCULAR: No shortness of breath, chest pain, PND, orthopnea, lower extremity edema, presyncope or syncope. [] GI: no nausea vomiting diarrhea. [] EDUCATIONAL PSYCHOLOGY TEACHER: No numbness, tingling, weakness or loss of function in any part of the body. [] MUSCULOSKELETAL: No knee or joint pain or rashes. [] Medications/Allergies* Home Medications Medication Instructions Recorded Confirmed Type baclofen 10 mg tablet 10 mg PO DAILY 10/24/19 05/30/21 History albuterol sulfate 2.5 mg/0.5 mL 2.5 mg INHALATION Q20M 05/16/20 05/30/21 History solution for nebulization albuterol sulfate 90 mcg/actuation 2 puff INHALATION Q6H PRN 05/16/20 05/30/21 History aerosol inhaler alprostadil 20 mcg intracavernosal 20 mcg INTRA-CAVERNOSAL .PRN ea 05/16/20 05/30/21 History kit ascorbic acid (vitamin C) 1,000 mg 1,000 mg PO DAILY tab 05/16/20 05/30/21 History tablet,extended release aspirin 325 mg tablet 325 mg PO DAILY 05/16/20 05/30/21 History diclofenac sodium 1 % topical gel 4 g TOPICAL QID PRN 05/16/20 05/30/21 History (Voltaren) fluticasone propionate 50 2 inh INHALATION DAILY ea 05/16/20 05/30/21 History mcg/actuation blister powder for inhalation magnesium oxide 400 mg PO DAILY 05/16/20 05/30/21 History sildenafil 100 mg tablet (Viagra) 100 mg PO DAILY PRN 05/16/20 05/30/21 History tamsulosin 0.4 mg capsule 0.4 mg PO DAILY 05/16/20 05/30/21 History testosterone cypionate 200 mg/mL 200 mg IM .Q 14 DAYS ml 05/16/20 05/30/21 History intramuscular oil (Depo-Testosterone) zinc gluconate 100 mg tablet 50 mg PO DAILY tab 05/16/20 05/30/21 History gabapentin 300 mg capsule 300 mg PO BEDTIME PRN 10/24/20 05/30/21 History glipizide 10 mg tablet 10 mg PO BID tab 10/24/20 05/30/21 History insulin glargine 100 unit/mL 26 unit SUBCUT DAILY ml 10/24/20 05/30/21 History subcutaneous solution (Lantus U-100 Insulin) primidone 50 mg tablet 150 mg PO .Q NIGHTLY PRN tab 10/24/20 05/30/21 History alogliptin 12.5 mg tablet 12.5 mg PO BID tab 02/10/21 05/30/21 History Allergies/Adverse Reactions Allergy/AdvReac Type Severity Reaction Status Date / Time No Known Allergies Allergy Verified 05/28/21 12:46 Current Medications: Generic Name Dose Route Start Last Admin Trade Name Freq PRN Reason Stop Dose Admin Sodium Chloride 1,000 mls @ 50 mls/hr 05/30/21 07:30 05/30/21 08:03 Sodium Chloride 0.9% IV 05/31/21 03:29 Not Given .Q20H ONE Pertinent History/Comorbid Conditions* Medical History (Updated 02/18/21 @ 16:33 by OZZIE Ramires) Hyperlipidemia associated with type 2 diabetes mellitus Hypertension Peripheral Vascular Disease Surgical History (Updated 10/28/20 @ 22:18 by Deonte Herrera MD) History of cholecystectomy Hx of CABG Family History (Updated 05/16/20 @ 10:28 by Blanca Davis LPN) Denies family history of Diabetes CAD (coronary artery disease) Cancer Social History Smoking and tobacco status: former smoker Alcohol intake: never Pertinent Exam Findings alert, oriented x 3, clear to auscultation bilaterally and regular rate & rhythm GENERAL: Patient is alert, awake and oriented x3. [] NECK: No jugular vein distension. [] HEENT: No cyanosis. No icterus. No pallor. [] HEART: Regular S1 and S2. No murmur, rub or gallop. [] LUNGS: Clear to auscultate bilaterally. [] ABDOMEN: Soft, nontender and nondistended. Positive bowel sounds. No guarding, rebound or tenderness. [] CENTRAL NERVOUS SYSTEM: Grossly nonfocal. [] EXTREMITIES: Lower extremities with 1+ edema bilaterally. Has a 1+ palpable pulses in the right foot Conscious Sedation Assessment PATIENT ASSESSED PRIOR TO SEDATION, WITH NO CHANGE NOTED: Yes AIRWAY EVAL/ANESTHESIA PLAN: normal airway, ASA III, Monitored Anesthesia, Local Anesthesia, Risks, benefits & alternatives of sedation and/or procedure discussed and Patient agrees to continue as planned Recommendations Surgery/Procedure today (Peripheral angiogram with possible percutaneous intervention) Coding Level of Care Code Acute Ceramic Painter for Yeni Pelletier
[2021-05-30] MEDS: sodium chloride 0.9% 1,000 ML 100 ML IV (15:04)
--- NOTE | 2021-05-30 16:10 | PC.NURSE ---
pt received from cardiac farm laborer at 1320 via bed.report received.pt was alert and oriented x 4.sr on monitor.pt denied pain.left femoral sheath intact to pressurized system.drsg dry and intact.no hematoma noted.palpable dp pulses noted.left left leg warm to touch and with brisk capillary refill.instructed pt in activity restrictions and instructed to notify staff for any bleeding,pain,numbness,or for any concerns at all.pt verb understanding of instructions.
--- NOTE | 2021-05-30 16:13 | PC.NURSE ---
sheath pull:left femoral arterial sheath pulled at 1515.pressure held x 20 min.vss through-out procedure.no hematoma formation noted.site dressed with 2x2 gauze and secured with biocclusive drsg.pt tolerated procedure well.instructed pt in activity restrictions s/p arterial sheath pull...and instructed to notify staff for any bleeding,pain,numbness...or for any concerns at all.pt verb understanding of instructions.
[2021-05-30 17:08] LABS: Glucose Point of Care 252 mg/dL (70-110)
[2021-05-30] MEDS: carvedilol 6.25 mg Tablet PO (17:48)
[2021-05-30] MEDS: insulin lispro 100 unit/1 mL SUBCUT (17:48)
[2021-05-30] MEDS: losartan 50 mg Tablet PO (18:41)
[2021-05-30] MEDS: baclofen 10 mg Tablet PO (20:09)
[2021-05-30] MEDS: gabapentin 300 mg Capsule PO (20:09)
[2021-05-30] MEDS: hyDRALAzine 50 mg Tablet 100 MG PO (20:09)
[2021-05-30] MEDS: HYDROcodone-acetaminophen 10-325 mg Tablet 1 TAB PO (20:12)
[2021-05-31] VITALS (7 sets, daily range): BP systolic 121–181; BP diastolic 71–93; PULSE 54–68; RESP 13–19; TEMP 36.7–36.8; O2SAT 94–97
[2021-05-31 04:16] LABS: Basophils % 0.7 %; Eosinophils # 0.1 10^3/uL (0.0-0.8); Eosinophils % 2.7 %; Hematocrit 34.5 % (42.0-52.0); Hemoglobin 11.4 g/dL (11.7-16.6); Lymphocytes % 22.2 %; Mean Corpuscular Hemoglobin 32.3 pg (28.0-34.0); Mean Corpuscular Volume 97.7 fl (80-94); Mean Platelet Volume 9.4 fL (7.4-10.4); Monocytes # 0.6 10^3/uL (0.2-0.9); Neutrophils # 2.64 10^3/uL (1.8-7.7); Neutrophils % 59.7 %; Nucleated Red Blood Cells % 0 %; Platelet Count 95 10^3/cmm (130-400); Red Blood Count 3.53 10^6/uL (4.1-5.3); Red Cell Distribution Width 13.4 % (12.1-15.1); White Blood Count 4.4 10^3/uL (4.0-10.0)
[2021-05-31 04:37] LABS: Anion Gap 16.2 (5-19); Blood Urea Nitrogen 37 mg/dL (8-23); Calcium 9.5 mg/dL (8.5-10.5); Carbon Dioxide 24 mmol/L (22-29); Chloride 102 mmol/L (98-107); Glomerular Filtration Rate 50.4 mL/min (90-130); Glucose 226 mg/dL (65-115); Osmolality Calculated 302 mOsm/kg (285-295); Potassium 4.2 mmol/L (3.5-5.1); Sodium 138 mmol/L (136-145)
[2021-05-31 07:41] LABS: Glucose Point of Care 216 mg/dL (70-110)
--- NOTE | 2021-05-31 08:48 | P.SS_ITS ---
Short Stay Summary Providers Date of Admit/Discharge: 05/30/21 Attending Provider: Sin Deluca M.D Primary Care Provider: Jackelin Cardona MD Chief Complaint: 70250 i73.9 HPI History of Present Illness Gregory Mukherjee is a 66 year old male with past medical history of peripheral artery disease, hypertension and hyperlipidemia who had peripheral angiogram with intervention with balloon angioplasty of right popliteal artery from tibial axis last year has again presented with lifestyle limiting claudication. Arterial duplex showed total occlusion of distal SFA/popliteal artery. Plan for peripheral angiogram with possible intervention Review of Systems Const: Reports: fatigue; Denies: fever(s), chills, change in weight or diaphoresis Eyes: Denies: change in vision or eye redness ENMT: Denies: throat pain, odynophagia, mouth pain or epistaxis Card: Reports: lightheadedness and dyspnea on exertion; Denies: chest pain, palpitations, irregular heart rhythm, edema, swelling of feet/ankles, syncope, pre-syncope, orthopnea or leg pain with exertion Resp: Denies: dyspnea, productive cough or wheezing GI: Denies: nausea, vomiting, hematemesis, heartburn, hematochezia or melena : Denies: hematuria Musc: Denies: extremity swelling or joint pain Skin/Breast: Denies: rash, pruritus, erythema or new lesions Neuro: Denies: numbness in extremities, weakness in extremities, sensory changes, frequent falls, dizziness, Slurred speech present or difficulty communicating thoughts Psych: Denies: anxiety, depression, irritability, suicidal ideation or homicidal ideation Endo: Denies: polyuria, polydipsia or excessive sweating Kory/Lymph: Reports: easy bruising; Denies: easy bleeding Home Meds/Allergies Home Medications and Allergies Home Medications Medication Instructions Recorded Confirmed Type baclofen 10 mg tablet 10 mg PO DAILY 10/24/19 06/10/21 History albuterol sulfate 2.5 mg/0.5 mL 2.5 mg INHALATION Q20M 05/16/20 06/10/21 History solution for nebulization albuterol sulfate 90 mcg/actuation 2 puff INHALATION Q6H PRN 05/16/20 06/10/21 History aerosol inhaler alprostadil 20 mcg intracavernosal 20 mcg INTRA-CAVERNOSAL .PRN ea 05/16/20 06/10/21 History kit ascorbic acid (vitamin C) 1,000 mg 1,000 mg PO DAILY tab 05/16/20 06/10/21 History tablet,extended release aspirin 325 mg tablet 325 mg PO DAILY 05/16/20 06/10/21 History diclofenac sodium 1 % topical gel 4 g TOPICAL QID PRN 05/16/20 06/10/21 History (Voltaren) fluticasone propionate 50 2 inh INHALATION DAILY ea 05/16/20 06/10/21 History mcg/actuation blister powder for inhalation magnesium oxide 400 mg PO DAILY 05/16/20 06/10/21 History sildenafil 100 mg tablet (Viagra) 100 mg PO DAILY PRN 05/16/20 06/10/21 History tamsulosin 0.4 mg capsule 0.4 mg PO DAILY 05/16/20 06/10/21 History testosterone cypionate 200 mg/mL 200 mg IM .Q 14 DAYS ml 05/16/20 06/10/21 History intramuscular oil (Depo-Testosterone) zinc gluconate 100 mg tablet 50 mg PO DAILY tab 05/16/20 06/10/21 History gabapentin 300 mg capsule 300 mg PO BID 10/24/20 06/10/21 History glipizide 10 mg tablet 10 mg PO BID tab 10/24/20 06/10/21 History insulin glargine 100 unit/mL 26 unit SUBCUT DAILY ml 10/24/20 06/10/21 History subcutaneous solution (Lantus U-100 Insulin) primidone 50 mg tablet 150 mg PO .Q NIGHTLY PRN tab 10/24/20 06/10/21 History alogliptin 12.5 mg tablet 12.5 mg PO BID tab 02/10/21 06/10/21 History furosemide 20 mg tablet 20 mg PO DAILY 05/31/21 06/10/21 History hydralazine 100 mg tablet 100 mg PO BID 05/31/21 06/10/21 History hydrocodone 10 mg-acetaminophen 1 tab PO TID 05/31/21 06/10/21 History 325 mg tablet Allergies Allergy/AdvReac Type Severity Reaction Status Date / Time No Known Allergies Allergy Verified 06/10/21 10:43 PFSH Acute PFSH: Medical History Hyperlipidemia associated with type 2 diabetes mellitus Hypertension Peripheral Vascular Disease Surgical History History of cholecystectomy Hx of CABG Family History Denies family history of Diabetes CAD (coronary artery disease) Cancer Social History Smoking and tobacco status: current every day smoker cigarettes Packs smoked per day: 2 Years cigarettes smoked: 12 Alcohol intake: never Vitals/I&O/Wt Last Vital Signs Temp 98.3 F 05/31/21 00:32 Pulse 56 L 05/31/21 06:00 Resp 16 05/31/21 04:19 BP 147/88 05/31/21 04:19 Pulse Ox 95 05/31/21 04:19 05/30/21 05/31/21 05/31/21 22:59 06:59 14:59 Intake Total 1296.667 / 2296.667 240 / 2536.667 Output Total 650 / 650 350 / 1000 Balance 646.667 / 1646.667 -110 / 1536.667 Weight last 48 hrs Weight 221 lb Physical Exam Narrative: GENERAL: Patient is alert, awake and oriented x3. [] NECK: No jugular vein distension. [] HEENT: No cyanosis. No icterus. No pallor. [] HEART: Regular S1 and S2. No murmur, rub or gallop. [] LUNGS: Clear to auscultate bilaterally. [] ABDOMEN: Soft, nontender and nondistended. Positive bowel sounds. No guarding, rebound or tenderness. [] CENTRAL NERVOUS SYSTEM: Grossly nonfocal. [] EXTREMITIES: Lower extremities with 1+ edema bilaterally. Pulses diminished on the right side Hospital Course Hospital Course Gregory Mukherjee is a 66 year old male with past medical history of peripheral artery disease, hypertension and hyperlipidemia who had peripheral angiogram with intervention with balloon angioplasty of right popliteal artery from tibial axis last year has again presented with lifestyle limiting claudication. Arterial duplex showed total occlusion of distal SFA/popliteal artery. He underwent peripheral angiogram yesterday that showed critical stenosis of popliteal artery that was heavily calcified. Visualization was very challenging secondary to knee prosthesis. As patient had recent revascularization last year and again developed stenosis in the same area, we will refer to Dr. Rodriguez for possible discussion regarding bypass surgery. Final decision regarding revascularization after discussion with Dr. Rodriguez. SSS Data Data Completed and Pending: Pending at discharge Category Date Time Status INFORMATION SYSTEMS MANAGER request for service Routin e Exams 05/30/21 12:18 Taken Procedures Performed: Peripheral angiogram Discharge Plan Discharge Patient Disposition: Home Condition: Stable Prescriptions: Continued clopidogrel 75 mg tablet 75 mg PO DAILY Qty: 90 3RF rosuvastatin 40 mg tablet 40 mg PO DAILY Qty: 90 3RF valsartan 320 mg tablet 320 mg PO DAILY Qty: 90 3RF baclofen 10 mg tablet 10 mg PO DAILY 0RF glipizide 10 mg tablet 10 mg PO BID 0RF albuterol sulfate 90 mcg/actuation HFA aerosol inhaler 2 puff inhalation Q6H PRN (Reason: Shortness Of Breath Or Wheezing) 0RF albuterol sulfate 2.5 mg/0.5 mL solution for nebulization 2.5 mg inhalation Q20M 0RF Rx Instructions: for up to 3 doses alprostadil 20 mcg kit 20 mcg intra-cavernosal .PRN 0RF aspirin 325 mg tablet 325 mg PO DAILY 0RF diclofenac sodium [Voltaren] 1 % gel 4 g topical QID PRN (Reason: Pain) 0RF Rx Instructions: apply to single knee, ankle, foot; for foot includes sole/toes/top of foot fluticasone propionate 50 mcg/actuation blister with device 2 inh inhalation DAILY 0RF magnesium oxide 400 mg magnesium capsule 400 mg PO DAILY 0RF tamsulosin 0.4 mg capsule 0.4 mg PO DAILY 0RF testosterone cypionate [Depo-Testosterone] 200 mg/mL oil 200 mg IM .Q 14 DAYS 0RF sildenafil [Viagra] 100 mg tablet 100 mg PO DAILY PRN (Reason: Sexual Activity) 0RF Rx Instructions: administer 30 minutes to 4 hours before activity ascorbic acid (vitamin C) 1,000 mg tablet extended release 1,000 mg PO DAILY 0RF zinc gluconate 100 mg tablet 50 mg PO DAILY 0RF gabapentin 300 mg capsule 300 mg PO BID 0RF Lantus U-100 Insulin 100 unit/mL solution 26 unit SUBCUT DAILY 0RF primidone 50 mg tablet 150 mg PO .Q NIGHTLY PRN (Reason: tremors) 0RF alogliptin 12.5 mg tablet 12.5 mg PO BID 0RF prednisone 10 mg tablet 30 mg PO DAILY 5 Days Qty: 15 0RF carvedilol 6.25 mg tablet 6.25 mg PO BID Qty: 180 3RF Rx Instructions: must administer with a meal/food furosemide 20 mg Tablet 20 mg PO DAILY 0RF hydrocodone-acetaminophen 10-325 mg Tablet 1 tab PO TID 0RF hydralazine 100 mg Tablet 100 mg PO BID 0RF Discharge Orders: Discharge Order (Routine); Ordered 05/31/21 Ordered By: Sin Deluca Referrals: Sin Deluca M.D [Physician] - 1 month ([facility] will contact you to schedule an follow-up with Dr. Deluca in 1 month. If you haven't heard from them by Wednesday. Please call ) Fabiola Mg FNP [Nurse Practitioner] - 7-10 days ([facility] will contact you to schedule an follow-up with Fabiola Mg in 7 to 10 days. If you haven't heard from them by Wednesday. Please call ) Discharge Diet: Diabetic Discharge Activity: Increase activity as tolerated Patient Instructions: Peripheral Vascular Disease (DC), Peripheral Artery Disease (DC), Hypertension (DC), Femoropopliteal Bypass (DC), Post Angiogram Home Care Instructions Attestations Medical Necessity Statement*: Care not expected to cross 2 midnight Time Spent in Patient Care*: less than 30 min Quality Metrics Clinical Quality Measures: [ No reported AMI, CVA or VTE this stay ] Coding Level of Care Code Acute Quilting Machine Operator for Yeni Pelletier
[2021-05-31] MEDS: atorvastatin 40 mg Tablet 80 MG PO (08:49)
[2021-05-31] MEDS: carvedilol 6.25 mg Tablet PO (08:49)
[2021-05-31] MEDS: insulin lispro 100 unit/1 mL SUBCUT (08:49)
[2021-05-31] MEDS: hyDRALAzine 50 mg Tablet 100 MG PO (08:49)
[2021-05-31] MEDS: tamsulosin 0.4 mg Capsule PO (08:50)
[2021-05-31] MEDS: HYDROcodone-acetaminophen 10-325 mg Tablet 1 TAB PO (08:50)
[2021-05-31] MEDS: clopidogrel 75 mg Tablet PO (08:50)
[2021-05-31] MEDS: losartan 50 mg Tablet PO (08:52)
[2021-05-31] MEDS: predniSONE 10 mg Tablet 30 MG PO (10:18)
--- NOTE | 2021-05-31 11:07 | PC.NURSE ---
Shift Note Frequent safety and comfort rounds continue. Orders and/or nursing care completed as indicated. Patient monitored for response to intervention and treatment(s). Education provided includes post angiogram home care instructions and continued meds. Patient and/or security representative verbalizes understanding. Will continue to monitor.
== END 2021-05-31 11:06 | disposition home or self-care (01) ==
LOC: CSU 13:18
PROVIDERS: Admitting Provider Internal Medicine; PCP Family Medicine; Visit Provider Internal Medicine
DX: I70.211 Atherosclerosis of native arteries of extremities with intermittent claudication, right leg (principal); I10 Essential (primary) hypertension; E78.5 Hyperlipidemia, unspecified; Z79.82 Long term (current) use of aspirin; E11.9 Type 2 diabetes mellitus without complications; Z95.1 Presence of aortocoronary bypass graft; Z79.4 Long term (current) use of insulin; F17.210 Nicotine dependence, cigarettes, uncomplicated
CPT/HCPCS: 36415; 36416; 75710; 80048; 82962; 85025; 96372; C1769; C1887; C1894; G0378; J0360; J1644; J1815; J2250; J3010; J7030; J7512; Q0163; Q9967

== ENCOUNTER → 2021-06-10 09:59 | Outpatient (BNVA) | payer OTHER, SELFPAY | PROVIDERS: PCP Family Medicine; Visit Provider Nurse Practitioner Family | DX: Z09 Encounter for follow-up examination after completed treatment for conditions other than malignant neoplasm (principal); I10 Essential (primary) hypertension; I73.9 Peripheral vascular disease, unspecified | CPT/HCPCS: 80048; 80061; 83721; 85025; 99214 ==

== ENCOUNTER → 2021-06-19 12:38 | Outpatient (BNVA) | payer OTHER, SELFPAY | PROVIDERS: PCP Family Medicine; Visit Provider Thoracic Surgery (Cardiothoracic Vascular Surgery) | DX: I73.9 Peripheral vascular disease, unspecified (principal); Z87.891 Personal history of nicotine dependence | CPT/HCPCS: 99203; 99205 ==

== ENCOUNTER → 2021-07-22 08:15 | Outpatient (BNVA) | payer OTHER, SELFPAY | PROVIDERS: PCP Family Medicine; Visit Provider Surgery | DX: I73.9 Peripheral vascular disease, unspecified (principal); Z12.11 Encounter for screening for malignant neoplasm of colon | CPT/HCPCS: 99204 ==

== ENCOUNTER → 2021-07-24 13:52 | Outpatient (BNVA) | payer OTHER, SELFPAY | PROVIDERS: PCP Family Medicine; Visit Provider Internal Medicine | DX: I73.9 Peripheral vascular disease, unspecified (principal); Z95.1 Presence of aortocoronary bypass graft; I10 Essential (primary) hypertension; Z87.891 Personal history of nicotine dependence | CPT/HCPCS: 99214 ==

== ENCOUNTER 2021-07-28 09:27 | Outpatient (CLI) | payer OTHER, SELFPAY ==
--- NOTE | 2021-07-28 09:40 | USCV_ITS ---
Gregory Mukherjee Age: 66 Gender: M : 1955 Exam Date: 07/28/2021 09:58 Ordering Phys: Patti Bush DO Technologist: DAVID Exam Location: [facility] [place] Indication: Murmur BP: 115 / 70 HR: 57 Rhythm: Sinus Technical Quality: Adequate MEASUREMENTS (Male / Female) Normal Values 2D ECHO LV Diastolic Diameter PLAX 4.4 cm 4.2 - 5.9 / 3.9 - 5.3 cm LV Systolic Diameter PLAX 3.0 cm IVS Diastolic Thickness 1.2 cm 0.6 - 1.0 / 0.6 - 0.9 cm IVS Systolic Thickness 1.5 cm LVPW Diastolic Thickness 1.4 cm 0.6 - 1.0 / 0.6 - 0.9 cm LVPW Systolic Thickness 1.7 cm RV Chamber Size 2.6 cm LVOT Diameter 2.0 cm LV Ejection Fraction 2D Teich 61.5 % LV Ejection Fraction MOD 2C 65.9 % LV Ejection Fraction 2C AL 69.5 % LA Diameter 3.7 cm LA Width 4.6 cm LA Height 4.5 cm RA Width 4.6 cm RA Height 3.9 cm Aorta at Sinotubular Diameter 2.1 cm M-MODE Aortic Annulus Diameter 2.7 cm LA Ao Ratio MM 1.4 MV E Point Septal Separation 0.8 cm DOPPLER AV Peak Velocity 167.0 cm/s LVOT Peak Velocity 111.0 cm/s AV Area Cont Eq vti 2.0 cm squared AV Area Cont Eq pk 2.1 cm squared MV Area PHT 5.0 cm squared Mitral E to A Ratio 1.0 MV E' Velocity 40.5 cm/s Mitral E to MV E' Ratio 9.0 Mitral E to LV E' Lateral Ratio 8.8 Mitral E to LV E' Septal Ratio 9.3 TR Peak Velocity 330.0 cm/s TR Peak Gradient 43.6 mmHg TV Peak E Velocity 37.0 cm/s PV Peak Velocity 179.0 cm/s RV Acceleration Time 0.1 s RV Ejection Time 0.3 s RV AcT/ET 0.3 FINDINGS Left Ventricle Normal left ventricular size. LV systolic function is normal with EF of 60-65%.No regional wall motion abnormalities. Diastolic function is normal Right Ventricle The right ventricle is normal in size and function. Right Atrium The right atrium is normal in size. Left Atrium The left atrium is normal in size. Mitral Valve Structurally normal mitral valve without significant stenosis or prolapse. There is trace mitral regurgitation. Aortic Valve Aortic valve is thickened without significant stenosis. There is no aortic regurgitation. Tricuspid Valve Structurally normal tricuspid valve without significant stenosis. Trace tricuspid regurgitation. Insufficient TR jet to calculate RVSP Pulmonic Valve Structurally normal pulmonic valve without significant stenosis. There is mild pulmonic regurgitation. Pericardium Normal pericardium without effusion. Aorta Normal ascending aorta dimension. CONCLUSIONS LV systolic function is normal with EF of 60 to 65%. Diastolic function is normal. Trace mitral regurgitation. Trace tricuspid regurgitation. Mild pulmonic regurgitation. No comparison studies are available Sin Deluca MD (Electronically Signed) Final Date: 28 Jul 2021 12:35 S
== END 2021-07-28 09:28 | disposition home or self-care (01) ==
LOC: RAD 09:28
PROVIDERS: PCP Family Medicine; Visit Provider Anesthesiology
DX: R01.1 Cardiac murmur, unspecified (principal)
CPT/HCPCS: 93306

== ENCOUNTER 2021-07-29 05:39 | Inpatient (IN) | payer OTHER, SELFPAY ==
[2021-07-24 15:12] VITALS: BMI 27.6
--- NOTE | 2021-07-24 15:33 | ECG_ITS ---
[facility] Test Date: 2021-07-24 Pat Name: Gregory Mukherjee Department: Room: Gender: Male [employer]: : [id number] Requested By: Patti Bush Order Number: [id number] Andrade MD: Sin Deluca M.D. Measurements Intervals [place] Rate: 57 P: 46 CT: 173 QRS: 55 QRSD: 114 T: 69 QT: 424 QTc: 413 Interpretive Statements SINUS BRADYCARDIA MODERATE INTRAVENTRICULAR CONDUCTION DELAY [110+ ms QRS DURATION] No previous ECG available for comparison Electronically Signed On 07-24-2021 17:00:48 CDT by Sin Deluca M.D. [id number]
[2021-07-24 16:02] LABS: Basophils # 0.1 10^3/uL (0.0-0.1); Basophils % 1.4 %; Eosinophils # 0.2 10^3/uL (0.0-0.8); Eosinophils % 3.6 %; Hematocrit 40.3 % (42.0-52.0); Hemoglobin 13.9 g/dL (11.7-16.6); Lymphocytes # 1.4 10^3/uL (0.8-4.8); Lymphocytes % 24.4 %; Mean Corpuscular HGB Conc 34.5 g/dL (30.0-36.0); Mean Corpuscular Hemoglobin 32.6 pg (28.0-34.0); Mean Corpuscular Volume 94.4 fl (80-94); Mean Platelet Volume 9.1 fL (7.4-10.4); Monocytes # 0.7 10^3/uL (0.2-0.9); Monocytes % 11.7 %; Neutrophils # 3.26 10^3/uL (1.8-7.7); Neutrophils % 58.5 %; Nucleated Red Blood Cells % 0 %; Platelet Count 171 10^3/cmm (130-400); Red Blood Count 4.27 10^6/uL (4.1-5.3); Red Cell Distribution Width 12.4 % (12.1-15.1); White Blood Count 5.6 10^3/uL (4.0-10.0)
[2021-07-24 16:15] LABS: Add Urine Microscopic? YES; Bilirubin Urine Neg (Negative); Blood Urine Neg (Negative); Glucose Urine UA 2+ (Normal); Ketones Urine Negative (Negative); Leukocyte Esterase Urine Negative (Negative); Nitrate Urine Negative (Negative); Protein Urine 2+ (Negative); Urine Appearance Clear (CLEAR); Urine Color Yellow (Yellow); Urobilinogen Urine Neg (Negative); pH Urine 5 (5-7)
[2021-07-24 16:16] LABS: Add Urine Culture? No; Squamous Epithelial Cell Urine RARE /hpf (0-5); WBC Urine RARE /hpf (0-5)
--- NOTE | 2021-07-24 16:23 | P.ANESASSM_ITS ---
Pre-Anesthetic Assessment Height/Weight: Height 1.85 m Weight 94.801 kg Preop Diagnosis: Lifestyle limiting claudication of right leg Operation Date: 07/29/21 07:00 Proposed Procedures p Femoral-Popliteal Artery Bypass(Right) - Kunal Rodriguez MD Familial anesthetic complications: None Was Beta Juan taken within 24 hours: Yes Was Clonidine taken within 24 hours: N/A Social No alcohol and No tobacco Exam alert, oriented x 3, clear to auscultation bilaterally and regular rate & rhythm Loud systolic click on exam Airway Submandibular: within normal limits Cervical ROM: within normal limits Mallampati: Class II Comments: Comments: Missing teeth Pulmonary None reported CV/HEM Coronary Artery Disease, Hypertension and Peripheral Vascular Disease S/P CABG 2019 METS > 4 None reported Hepatic None reported GI None reported Metabolic None reported Musc/skel None reported Neuropsych None reported Anesthetic Plan ASA status: 3 Anesthesia: Anesthesia Evaluation and General Other: We discussed risk and benefits of general anesthesia including PONV, sore throat (sometimes severe), corneal abrasion, positioning and peripheral nerve injuries, life threatening allergic reaction, post operative ICU admission requiring prolonged intubation, stroke, heart attack, , and rare incidences of recall. Patient consents to proceed with general anesthesia. GETA, 2 PIV, arterial line Risk of > 500 ml blood loss (7ml/kg in children): Yes, adequate IV access and fluids planned Other Pertinent Information Cardiology consult ordered. TTE ordered. Systolic click on heart auscultation with no documentation of murmur, s/p CABG, and no records of TTE/JUAN available. Medications/Allergies Home Medications Medication Instructions Recorded Confirmed Last Taken Type baclofen 10 mg tablet 10 mg PO DAILY 10/24/19 07/24/21 05/29/21 23:00 History albuterol sulfate 2.5 mg/0.5 mL 2.5 mg INHALATION Q20M 05/16/20 07/24/21 Unknown History solution for nebulization albuterol sulfate 90 mcg/actuation 2 puff INHALATION Q6H PRN 05/16/20 07/24/21 Unknown History aerosol inhaler alprostadil 20 mcg intracavernosal 20 mcg INTRA-CAVERNOSAL .PRN ea 05/16/20 07/24/21 Unknown History kit ascorbic acid (vitamin C) 1,000 mg 1,000 mg PO DAILY tab 05/16/20 07/24/21 05/29/21 08:00 History tablet,extended release aspirin 325 mg tablet 325 mg PO DAILY 05/16/20 07/24/21 05/29/21 08:00 History diclofenac sodium 1 % topical gel 4 g TOPICAL QID PRN 05/16/20 07/24/21 06/22/20 10:00 History (Voltaren) fluticasone propionate 50 2 inh INHALATION DAILY ea 05/16/20 07/24/21 05/29/21 08:00 History mcg/actuation blister powder for inhalation (Flovent Diskus) magnesium oxide 400 mg PO DAILY 05/16/20 07/24/21 05/29/21 08:00 History sildenafil 100 mg tablet (Viagra) 100 mg PO DAILY PRN 05/16/20 07/24/21 Unknown History tamsulosin 0.4 mg capsule 0.4 mg PO DAILY 05/16/20 07/24/21 05/29/21 08:00 History testosterone cypionate 200 mg/mL 200 mg IM .Q 14 DAYS ml 05/16/20 07/24/21 06/14/20 22:00 History intramuscular oil (Depo-Testosterone) zinc gluconate 100 mg tablet 50 mg PO DAILY tab 05/16/20 07/24/21 05/29/21 08:00 History gabapentin 300 mg capsule 300 mg PO BID PRN 10/24/20 07/24/21 05/29/21 23:00 History glipizide 10 mg tablet 10 mg PO BID tab 10/24/20 07/24/21 05/29/21 23:00 History insulin glargine 100 unit/mL 26 unit SUBCUT DAILY ml 10/24/20 07/24/21 05/28/21 12:00 History subcutaneous solution (Lantus U-100 Insulin) alogliptin 12.5 mg tablet 12.5 mg PO BID tab 02/10/21 07/24/21 05/29/21 23:00 History clopidogrel 75 mg tablet 75 mg PO DAILY #90 tab 02/10/21 07/24/21 05/29/21 08:00 Rx rosuvastatin 40 mg tablet 40 mg PO DAILY #90 tab 02/10/21 07/24/21 05/29/21 23:00 Rx valsartan 320 mg tablet 320 mg PO DAILY #90 tab 1107/24/21 05/29/21 08:00 Rx furosemide 20 mg tablet 20 mg PO DAILY 05/31/21 07/24/21 05/30/21 History hydralazine 100 mg tablet 100 mg PO BID 05/31/21 07/24/21 05/31/21 History hydrocodone 10 mg-acetaminophen 1 tab PO TID PRN 05/31/21 07/24/21 05/31/21 History 325 mg tablet lactulose 10 gram/15 mL oral 15 ml PO BID 14 Days #420 ml 07/22/21 07/24/21 Unknown Rx solution carvedilol 3.125 mg tablet 3.125 mg PO BID #180 tab 07/24/21 07/24/21 Unknown Rx prednisone 10 mg tablet 30 mg PO DAILY PRN 07/24/21 07/24/21 Unknown History Allergies Allergy/AdvReac Type Severity Reaction Status Date / Time No Known Allergies Allergy Verified 07/24/21 15:04 [facility] Anesthesia Medical History Hyperlipidemia associated with type 2 diabetes mellitus Hypertension Peripheral Vascular Disease Surgical History History of cholecystectomy History of colonoscopy with polypectomy 2013 Hx of CABG Family History Denies family history of Diabetes CAD (coronary artery disease) Cancer Social History Smoking and tobacco status: former smoker Quit status (tobacco): has quit using tobacco Year quit tobacco: 1995 Alcohol intake: never Lives independently: Yes Household members: spouse Housing: House Marital status: Number of children: 2 Pets and animals: Yes Pets & animals: cat(s) and dog(s) Data Anesthesia : 07/24/21 15:34 07/24/21 15:34 Short CBC 07/24/21 Range/Units 15:34 WBC 5.6 (4.0-10.0) 10^3/uL Hgb 13.9 (11.7-16.6) g/dL Hct 40.3 L (42.0-52.0) % MCV 94.4 H (80-94) fl Plt Count 171 (130-400) 10^3/cmm Neut % (Auto) 58.5 % Neut # (Auto) 3.26 (1.8-7.7) 10^3/uL Urine 07/24/21 Range/Units 15:34 Urine Color Yellow (Yellow) Urine Appearance Clear (CLEAR) Urine pH 5 (5-7) Ur Specific [place] 1.020 (1.005-1.030) Urine Protein 2+ H (Negative) Urine Glucose (UA) 2+ H (Normal) Urine Ketones Negative (Negative) Urine Nitrate Negative (Negative) Urine Bilirubin Neg (Negative) Ur Leukocyte Esterase Negative (Negative) Urine RBC None (0-2) /hpf Urine WBC Rare (0-5) /hpf Cardiac Studies: No Data to Display
[2021-07-24 16:30] LABS: Anion Gap 19.1 (5-19); Blood Urea Nitrogen 46 mg/dL (8-23); Calcium 9.5 mg/dL (8.5-10.5); Carbon Dioxide 24 mmol/L (22-29); Chloride 95 mmol/L (98-107); Glomerular Filtration Rate 43.2 mL/min (90-130); Glucose 210 mg/dL (65-115); Osmolality Calculated 296 mOsm/kg (285-295); Potassium 4.1 mmol/L (3.5-5.1); Sodium 134 mmol/L (136-145)
[2021-07-29] VITALS (27 sets, daily range): BP systolic 127–175; BP diastolic 73–98; PULSE 65–135; RESP 10–23; TEMP 36.6–36.9; O2SAT 93–98
[2021-07-29 06:05] LABS: Glucose Point of Care 279 mg/dL (70-110)
[2021-07-29] MEDS: sodium chloride 0.9% 1,000 ML 30 ML IV (06:06)
[2021-07-29] MEDS: insulin regular-human 100 units/1 mL 10 UNIT IVP (06:35)
[2021-07-29 06:57] LABS: Glucose Point of Care 252 mg/dL (70-110)
[2021-07-29] MEDS: vancomycin 1,000 MG SDV 1000 MG IRRIGATION ×2 (08:02→11:58)
[2021-07-29] MEDS: heparin,porcine 1,000 unit/mL INJ 1 mL 1000 UNIT IRRIGATION (08:03)
--- NOTE | 2021-07-29 09:20 | P.ANESUD_ITS ---
Pre-Anesthetic Update Pre-Anesthetic Assessment: Date of Surgery/Procedure: 07/29/21 Preop Brittanie gnosis: Distal right superficial femoral artery occlusion Proposed Procedure: Operation Date: 07/29/21 07:00 Proposed Procedures p Femoral-Popliteal Artery Bypass(Right) - Kunal Rodriguez MD Any changes to Pre-Anesthetic Assessment?: No Last Intake: Intake Last Liquid Date 07/28/21 Last Liquid Time 22:00 Last Solid Date 07/28/21 Last Solid Time 22:00 Labs Last 48hrs: Blood Bank 07/24/21 15:34 Blood Type A Positive Rho(D) Type Positive Antibody Screen Negative Vitals: Temperature 98.5 F 07/29/21 05:50 Temperature Source Temporal Artery S can 07/29/21 05:50 Pulse Rate 69 07/29/21 05:50 Pulse Rhythm 07/29/21 05:50 Pulse Strength 3+ Normal 07/29/21 05:50 Respiratory Rate 18 07/29/21 05:50 Blood Pressure 166/98 07/29/21 05:50 Blood Pressure Kanwal n 120 07/29/21 05:50 Pulse Oximetry 95 07/29/21 05:50 Oxygen Delivery Me thod 07/29/21 05:50 Exam: Pre-Anes Outpt Exam: alert, oriented x 3, clear to auscultation bilaterally and regular rate & rhythm Cardiac Studies: Echocardiogram 07/28/21
[2021-07-29] MEDS: sodium bicarbonate 1 mEq/mL SDV 50mL 0.7 MEQ IRRIGATION (09:46)
[2021-07-29] MEDS: heparin, porcine 1,000 unit/mL INJ 10 mL 1750 UNIT IRRIGATION (09:46)
--- NOTE | 2021-07-29 10:02 | SUR.OPER ---
1000 Dana given update on surgery progress, states understanding.
[2021-07-29 10:34] LABS: Glucose Point of Care 241 mg/dL (70-110)
--- NOTE | 2021-07-29 12:00 | SUR.OPER ---
1138 notified of surgery progress, states understanding.
--- NOTE | 2021-07-29 12:55 | SUR.OPER ---
1255 report given to farida cole, all questions answered, ready to recieve pt.
--- NOTE | 2021-07-29 13:19 | PM.HP ---
Providers/Chief Complaint Admitting Physician: Dr. Rodriguez Primary Care Provider: Jackelin Cardona MD Chief Complaint: geri with Cindy in Dr Rodriguez office did not have History of Present Illness Gregory Mukherjee is a 66 year old male who is directly admitted today for attempted revascularization of the right lower extremity. He has a known stenosis of the distal left SFA and has undergone prior intervention by Dr. Herrera approximately 1 year ago. He developed return of consistently reproducible claudication of the right lower extremity and follow-up CTA has again confirmed a distal discrete right discrete 95% popliteal artery severe stenosis which is also noted to be heavily calcified. He has had a prior knee replacement on that side in 2017 and stated he had no vascular problems until after his orthopedic surgery. Dr. Deluca performed angiography in May of this year for assessment of an attempt to try to improve the stenotic region which had previous undergone angioplasty. Unfortunately, this is a bit challenging related to visualization due to the views being obscured from the knee prosthesis. As well, there is substantial calcification is noted and intervention was not performed. He is then referred to our service to consider a surgical bypass. He has a remote history of tobacco use though none in 20 years. He does have diabetes mellitus which he takes several agents including insulin. He has also, substantial peripheral neuropathy. I had previously reviewed the findings with my colleague Dr. Deluca. I conferred with Mr. Mukherjee and his in my clinic about the details related to attempted revascularization. Given that the discrete stenosis, though at the proximal popliteal region, I did discuss we might be able to perform a localized endarterectomy with patch angioplasty. The inability to complete the procedure was also carefully discussed as well as potential complications including catastrophic complication such as acute ischemia requiring major amputation. Review of Systems Const: Reports: body aches and fatigue; Denies: fever(s) or chills ENMT: Denies: throat pain or hoarseness Card: Denies: chest pain, palpitations or irregular heart rhythm Resp: Denies: dyspnea or hemoptysis GI: Denies: abdominal pain, nausea, vomiting or hematemesis : Reports: urinary hesitancy Musc: Reports: extremity pain, joint pain and limited range of motion Neuro: Reports: numbness in extremities and weakness in extremities; Denies: headache(s) or lack of coordination Kory/Lymph: Denies: easy bruising or easy bleeding Medications/Allergies Home Medications Medication Instructions Recorded Confirmed Last Taken Type baclofen 10 mg tablet 10 mg PO DAILY 10/24/19 07/29/21 07/28/21 History albuterol sulfate 2.5 mg/0.5 mL 2.5 mg INHALATION Q20M 05/16/20 07/24/21 Unknown History solution for nebulization albuterol sulfate 90 mcg/actuation 2 puff INHALATION Q6H PRN 05/16/20 07/24/21 Unknown History aerosol inhaler ascorbic acid (vitamin C) 1,000 mg 1,000 mg PO DAILY tab 05/16/20 07/29/21 07/28/21 History tablet,extended release aspirin 325 mg tablet 325 mg PO DAILY 05/16/20 07/29/21 07/25/21 History diclofenac sodium 1 % topical gel 4 g TOPICAL QID PRN 05/16/20 07/24/21 06/22/20 10:00 History (Voltaren) fluticasone propionate 50 2 inh INHALATION DAILY ea 05/16/20 07/29/21 07/28/21 History mcg/actuation blister powder for inhalation (Flovent Diskus) magnesium oxide 400 mg PO DAILY 05/16/20 07/24/21 05/29/21 08:00 History sildenafil 100 mg tablet (Viagra) 100 mg PO DAILY PRN 05/16/20 07/24/21 Unknown History tamsulosin 0.4 mg capsule 0.4 mg PO DAILY 05/16/20 07/29/21 07/28/21 History testosterone cypionate 200 mg/mL 200 mg IM .Q 14 DAYS ml 05/16/20 07/29/21 07/20/21 History intramuscular oil (Depo-Testosterone) zinc gluconate 100 mg tablet 50 mg PO DAILY tab 05/16/20 07/29/21 07/28/21 History gabapentin 300 mg capsule 300 mg PO BID PRN 10/24/20 07/29/21 07/28/21 History glipizide 10 mg tablet 10 mg PO BID tab 10/24/20 07/29/21 07/28/21 History insulin glargine 100 unit/mL 26 unit SUBCUT DAILY ml 10/24/20 07/24/21 05/28/21 12:00 History subcutaneous solution (Lantus U-100 Insulin) alogliptin 12.5 mg tablet 12.5 mg PO BID tab 02/10/21 07/29/21 07/28/21 History clopidogrel 75 mg tablet 75 mg PO DAILY #90 tab 02/10/21 07/29/21 07/25/21 Rx rosuvastatin 40 mg tablet 40 mg PO DAILY #90 tab 02/10/21 07/29/21 07/28/21 Rx valsartan 320 mg tablet 320 mg PO DAILY #90 tab 02/10/21 07/29/21 07/28/21 Rx furosemide 20 mg tablet 20 mg PO DAILY 05/31/21 07/29/21 07/28/21 History hydralazine 100 mg tablet 100 mg PO BID 05/31/21 07/29/21 07/28/21 History hydrocodone 10 mg-acetaminophen 1 tab PO TID PRN 05/31/21 07/29/21 07/28/21 History 325 mg tablet lactulose 10 gram/15 mL oral 15 ml PO BID 14 Days #420 ml 07/22/21 07/24/21 Unknown Rx solution carvedilol 3.125 mg tablet 3.125 mg PO BID #180 tab 07/24/21 07/29/21 07/28/21 08:00 Rx prednisone 10 mg tablet 30 mg PO DAILY PRN 07/24/21 07/24/21 Unknown History Allergies Allergy/AdvReac Type Severity Reaction Status Date / Time No Known Allergies Allergy Verified 07/24/21 15:04 PFSH Acute PFSH: Medical History Hyperlipidemia associated with type 2 diabetes mellitus Hypertension Peripheral Vascular Disease Surgical History History of cholecystectomy History of colonoscopy with polypectomy 2013 Hx of CABG Family History Denies family history of Diabetes CAD (coronary artery disease) Cancer Social History Smoking and tobacco status: former smoker Quit status (tobacco): has quit using tobacco Year quit tobacco: 1995 Alcohol intake: never Lives independently: Yes Household members: spouse Housing: House Marital status: Number of children: 2 Pets and animals: Yes Pets & animals: cat(s) and dog(s) Vitals/I&O/Wt Last Vital Signs Temp 98.5 F 07/29/21 05:50 Pulse 69 07/29/21 05:50 Resp 18 07/29/21 05:50 BP 166/98 07/29/21 05:50 Pulse Ox 95 07/29/21 05:50 07/28/21 07/29/21 07/29/21 22:59 06:59 14:59 Intake Total 60 / 60 Balance 60 / 60 Physical Exam Const: COMMON NORMALS: no acute distress and average body habitus HENMT: COMMON NORMALS: normocephalic, atraumatic, hearing grossly normal bilaterally and external ears normal Eye: GENERAL EYE: appearance normal, both eyes and all related structures and normal light reflex Neck/C-Spine: COMMON NORMALS: no lymphadenopathy and No carotid bruits Chest: COMMONS NORMALS: normal inspection of the chest and normal palpation of entire chest wall Resp: COMMON NORMALS: normal respiratory effort, No use of accessory muscles and clear to auscultation bilaterally Cardio: COMMON NORMALS: regular rate, regular rhythm and S1 normal heart sound present PERIPHERAL PULSES: radial pulses present positive bilateral 2+, femoral pulses present positive bilateral 2+ and dorsalis pedis present positive right diminished and positive left 1+ GI: COMMON NORMALS: Normal to inspection, nondistended, normoactive bowel sounds present Extremity: COMMON NORMALS: normal to inspection and no clubbing, cyanosis or edema Urinary Catheter Management: [place]: Cath Placed During This Visit: yes Urinary Catheter Date of Insertion: 07/29/21 Urinary Catheter Time of Insertion: 07:25 Data : 07/24/21 15:34 07/24/21 15:34 A&P Assessment and plan (1) Peripheral Vascular Disease: Recurrent and persistent right lower extremity claudication with recurrence of a discrete severe popliteal artery stenosis with severe calcification not felt to be amenable to percutaneous approach. We have discussed options for surgery revascularization including localized endarterectomy with patch angioplasty versus surgical bypass which might include bypass below the knee. Details of risk of procedure were carefully reviewed with Mr. Munguia and his . Potential complication including graft failure, acute ischemia the lower extremity requiring attempts at revision or major amputation, recurrent pain, need for further procedures were all frankly discussed. Appropriate consents have been provided for review and signature. Status: Acute Attestations Medical Necessity Statement*: Recurrent and persistent right lower extremity claudication with discrete popliteal artery stenosis Time Spent in Patient Care: Greater than 35 minutes Coding Level of Care Code Established Pt Acute Tank Builder Helper for Marciag Fwlasha Patient Type Established History Detailed Exam Expanded Problem Focused Medical Decision Making Moderate Complexity Diagnoses Peripheral Vascular Disease I73.9
--- NOTE | 2021-07-29 13:31 | P.OP_ITS ---
Operative Report Date of procedure: July 29, 2021 Pre-op diagnosis: Preop Diagnosis severe recurrent right popliteal artery stenosis with claudication Post-op diagnosis: same Procedure done: Distal right superficial femoral artery to right tibial peroneal trunk bypass utilizing reverse autogenous saphenous vein graft Pathology: none sent Surgeon: Kunal Rodriguez Estimated blood loss (mL): 50 Complications: None Brief History: Mr. Mukherjee is a 66-year-old gentleman with recurrent right popliteal artery stenosis prior intervention approximately 1 year ago. He has not had recurrent right lower extremity claudication and reach angiography in May of this year by Dr. Deluca was confirmed restenosis of a discrete area in the right popliteal artery with heavy calcifications not amenable to percutaneous therapy. He was referred to our service to consider surgical revascularization. Given the distal position of this lesion, the potential for distal bypass was discussed as well as local endarterectomy. All questions were answered. Proper consents have been reviewed and signed. Procedure: Mr. Munguia was taken to the operating room theater carefully position on the OR table. Appropriate IVs and monitors were placed and confirmed. He underwent general trach anesthesia and was sterilely prepped and draped. Initially, a medial incision was made to the distal right thigh extending from just above the knee more proximally. Dissection was continued with cautery down through the subcutaneous tissues down to the fascia which was opened. This was done by distracting the sartorius muscle posteriorly and the vastus medialis anteriorly. Dissection was continued into the popliteal space was entered. The popliteal artery and its associated veins were carefully dissected free and the vessel was isolated. I was able to palpate distally toward the knee where there was indeed heavy calcifications and a very discrete calcified irregular area which I do believe coincides with the angiographic severe stenotic lesion. Unfortunately, further distally as far as I can palpate from this approach, there was heavy calcification circumferential around the vessel, which I felt would not be amenable to appropriate vascular clamping. Therefore, after carefully isolating mobilizing the popliteal artery at this level, I then proceeded further distally. A second medial incision was made below the knee extending down to the subcutaneous issues down to the fascia which was opened. A portion of the soleus muscle medially was detached from the tibia to provide further exposure of the tibioperoneal trunk. Next, the tibioperoneal trunk was dissected free and mobilized medially away from the associated vein. At this time, the saphenous vein was dissected free from our right leg incision and this incision was continued further distally to allow for adequate length of saphenous vein to be recovered. It should be noted he has had prior coronary bypass grafting and it appears that the saphenous vein was harvested from the right thigh. After the vein was harvested, it was carefully flushed with heparinized solution including albumin without branches being carefully ligated. Vessel cannula was placed to allow for subsequent implantation of this vessel in a reverse fashion. Saphenous vein was then brought in to the more superior wound and with a vascular clamp was brought down through the popliteal space into the lower wound. Next, Mr. Mukherjee was heparinized with 10,000 units of heparin. After appropriate timing, the tibioperoneal trunk was isolated secured with vascular clamps. It was opened up with a number laparoscopic blade and Vyas scissors. An end-to-side anastomosis was then completed with the reversed vein graft segment in a end-to-side fashion using running 7-0 Prolene suture. Hemostasis along the suture line was confirmed. Next, the popliteal artery was isolated and the superior wound and it was secured with vascular clamps proximally distally. Specimen was opened up in a similar fashion longitudinally and the vein was then anastomosed proximally to the popliteal artery utilizing running 7-0 Prolene suture in a end-to-side fashion. After de-airing, antegrade flow was reestablished. Hemostasis was confirmed at both anastomoses. Doppler signal with strong tibioperoneal trunk as well as down at the dorsalis pedis artery. Heparin was partially reversed with protamine. Hemostasis confirmed. Both wounds were carefully irrigated with antibiotic solution. Surgicel was placed over the anastomotic sites. A GUS drain was placed in each wound and secured. Next, his wound was closed in 2 layers a running 2-0 Vicryl suture. Skin was closed with surgical tiny. Sterile dressings were applied. Mr. Munguia was awakened from anesthesia transferred to the ICU bed and then transferred to the ICU. I did sexual assault counsellor with his at the completion of the procedure.
[2021-07-29] MEDS: lactated ringers 1,000 ML 125 ML IV ×2 (13:47→22:10)
[2021-07-29] MEDS: morphine 4 mg/mL SDV 1 mL 2 MG IVP (13:47)
[2021-07-29] MEDS: gabapentin 300 mg Capsule PO ×3 (14:04→20:51)
[2021-07-29] MEDS: aspirin 81 mg Chew Tablet PO (14:04)
[2021-07-29] MEDS: HYDROcodone-acetaminophen 10-325 mg Tablet 1 TAB PO (14:05)
[2021-07-29] MEDS: HYDROmorphone 1 mg/mL INJ 1 mL IVP (14:29)
[2021-07-29] MEDS: HYDROmorphone 1 mg/mL INJ 1 mL 0.5 MG IVP (16:14)
[2021-07-29] MEDS: acetaminophen 500 mg Tablet 1000 MG PO ×2 (16:15→20:51)
[2021-07-29] MEDS: oxyCODONE 5 mg IR Tab/Cap 10 MG PO ×2 (18:11→22:10)
[2021-07-29] MEDS: carvedilol 3.125 mg Tablet PO (18:11)
--- NOTE | 2021-07-29 18:50 | PC.NURSE ---
Bedside report completed with Ladi Sheridan Rn.
--- NOTE | 2021-07-29 18:53 | ANE.PACU2 ---
Inpatient post-anesthesia follow up: Airway intact: Yes Vital signs: Temperature 98.5 F Pulse Rate 73 Respiratory Rate 17 Blood Pressure 166/98 Pulse Oximetry 98 Oxygen Delivery Me thod Nasal Cannula Oxygen Flow Rate Fraction of Inspir ed Oxygen Hydration adequate: Yes Nausea and vomiting: No Pain level: 4 Mental status: Baseline
--- NOTE | 2021-07-29 19:24 | PC.NURSE ---
Shift Note: Pt arrived to ICU from OR. Leg immobilizer on, Incision not visualizes a sit is fresh post -op. Pain control was an issue at first but it has improved, pain medications adjusted. Pulse palpable on right dorsal. He trends towards hypertension. Urine output of 1000ml. Frequent safety and comfort rounds continue. Orders and/or nursing care completed as indicated. Patient monitored for response to intervention and treatment(s). Education provided includes Dilaudid, Morphine, Oxycodone, hydrocodone, and gabapentin Patient and/or loss prevention representative verbalized understanding of plan of care and ongoing care. Will continue to monitor.
[2021-07-29] MEDS: enoxaparin 40 mg/0.4 mL Syringe SUBCUT (19:36)
[2021-07-29] MEDS: clopidogrel 75 mg Tablet PO (19:36)
[2021-07-29] MEDS: ceFAZolin 1,000 MG in sodium chloride 0.9% (plus) 50 ML 100 MG IV (20:10)
--- NOTE | 2021-07-29 21:00 | PC.NURSE ---
Family Update Granddaughter, Dionna, called to receive update on patient. Patient gave verbal permission for medical information to be relayed. Vital signs and patient status discussed. Family verbalized understanding.
[2021-07-29 21:59] LABS: Glucose Point of Care 329 mg/dL (70-110)
[2021-07-29 21:59] LABS: Glucose Point of Care 272 mg/dL (70-110)
--- NOTE | 2021-07-29 22:00 | PC.NURSE ---
Addendum entered by Juliane Sheridan RN 07/30/21 00:50: Additionally, movement restrictions for patient were discussed. Dr. Garcia stated that patient allowed to get up to chair with assistance and move, immobilizer to remain on tonight and tomorrow. Original Note: Insulin In doctor's notes, it is recorded that patient has Diabetes and upon asking patient, he verbally states that he takes insulin at home. Blood sugar check revealed 272. Dr. Garcia called and notified; verbal order received to start medium dose insulin sliding scale per protocol with meals and at bedtime with the first dose to be administered tonight. Order placed, see MAR for administration.
[2021-07-29] MEDS: insulin lispro 100 unit/1 mL SUBCUT (22:06)
[2021-07-30] VITALS (35 sets, daily range): BP systolic 120–175; BP diastolic 70–100; PULSE 58–81; RESP 8–23; TEMP 36.6–37; O2SAT 92–99; BMI 29.7
[2021-07-30] MEDS: acetaminophen 500 mg Tablet 1000 MG PO ×3 (02:42→20:08)
[2021-07-30] MEDS: ceFAZolin 1,000 MG in sodium chloride 0.9% (plus) 50 ML 100 MG IV ×2 (02:44→12:10)
[2021-07-30] MEDS: oxyCODONE 5 mg IR Tab/Cap 10 MG PO ×4 (02:48→20:08)
[2021-07-30] MEDS: HYDROmorphone 1 mg/mL INJ 1 mL 0.5 MG IVP ×3 (05:52→15:23)
--- NOTE | 2021-07-30 06:00 | PC.NURSE ---
Bhat Removal Dr. Garcia at patient bedside. Verbal order received to remove bhat catheter. Transfer to [facility] floor discussed, patient verbalized understanding.
[2021-07-30] MEDS: lactated ringers 1,000 ML 125 ML IV (06:11)
--- NOTE | 2021-07-30 06:16 | PM.PN ---
Subjective Subjective: Postop day #1 status post distal SFA to tibioperoneal trunk bypass. Up in chair on rounds this morning pain remains under good control though does complain of some burning sensations in the mid thigh region. Doppler signal with intermittent light palpable pulse right foot. Mr. Mukherjee states he is hungry. Vitals/I&O/Wt Last Vital Signs Temp 98.4 F 07/30/21 04:00 Pulse 59 L 07/30/21 04:30 Resp 16 07/30/21 05:52 BP 127/70 07/30/21 04:30 Pulse Ox 99 07/30/21 05:52 07/29/21 07/29/21 07/30/21 14:59 22:59 06:59 Intake Total 2260 / 2260 1570 / 3830 1050 / 4880 Output Total 500 / 500 1055 / 1555 Balance 1760 / 1760 515 / 2275 1050 / 3325 Physical Exam Extremity: NARRATIVE EXTREMITY EXAM: Right foot is warm with good perfusion. Doppler signal with reportedly intermittent light palpable pulse which I did note yesterday evening. Urinary Catheter Management: [place]: Cath Placed During This Visit: yes Reason for Continuing Indwelling Catheter: Accurate Measurement of Urinary Output in Critically Ill Patients Urinary Catheter Date of Insertion: 07/29/21 Urinary Catheter Time of Insertion: 07:25 Data : 07/24/21 15:34 07/24/21 15:34 A&P Assessment and plan (1) Peripheral Vascular Disease: POD #1 status post distal SFA to tibial peroneal bypass. Plan: We will transfer to sal. I will remove right knee immobilizer later this morning. Status: Acute Attestations Medical Necessity Statement*: Status post distal SFA to tibial peroneal bypass due to recurrent popliteal artery stenosis Time Spent in Patient Care: less than 15 minutes Coding Level of Care Code Acute Cloth Finishing Range Operator Chief for Yeni Pelletier Diagnoses Peripheral Vascular Disease I73.9
--- NOTE | 2021-07-30 06:50 | PC.NURSE ---
Bedside report completed with Ladi Sheridan Rn.
[2021-07-30 07:58] LABS: Glucose Point of Care 151 mg/dL (70-110)
[2021-07-30] MEDS: insulin lispro 100 unit/1 mL SUBCUT ×4 (08:07→21:00)
[2021-07-30] MEDS: aspirin 325 mg Tablet PO (08:08)
[2021-07-30] MEDS: tamsulosin 0.4 mg Capsule PO (08:08)
[2021-07-30] MEDS: losartan 50 mg Tablet 100 MG PO (08:08)
[2021-07-30] MEDS: FUROsemide 20 mg Tablet PO (08:08)
[2021-07-30] MEDS: carvedilol 3.125 mg Tablet PO ×2 (08:08→18:20)
[2021-07-30] MEDS: zinc gluconate 50 mg Tablet PO (08:09)
[2021-07-30] MEDS: clopidogrel 75 mg Tablet PO (08:09)
[2021-07-30] MEDS: baclofen 10 mg Tablet PO (08:09)
[2021-07-30] MEDS: magnesium oxide 400 mg tablet PO (08:09)
[2021-07-30] MEDS: atorvastatin 40 mg Tablet 80 MG PO (08:09)
[2021-07-30] MEDS: pantoprazole DR 40 mg Tablet PO (08:09)
[2021-07-30] MEDS: gabapentin 300 mg Capsule PO ×3 (08:10→20:07)
--- NOTE | 2021-07-30 10:24 | PC.CHAP ---
Pastoral Care Encounter/Spiritual Assessment Type of Contact [] Declined party supply specialist visit [] Patient/Family/Request visit [] Outpatient visit [] Follow-up visit [] Physician referral [] Code/Alert [x] Routine visit [] Staff referral [] Actively dying [] Patient sleeping [] Family support [] [] Out of room [] Palliative care [] [x] Receiving care in room [] Pre-surgical visit [] Trauma [] Long length of stay [] ICU visit [x] Other: setting up in chair Relational/Emotional Strength [] Patient feels connected with others/family/visitors/staff [] Distress [] Loneliness/isolation [] Abandonment Spirituality of Patient [] Person of Magda [] Attends Church of their Magda [] Believes in Prayer [] Reads Bible or Church materials [] There are Spiritual issues to be addressed Director Broadcast Interventions [x] Prayer [] Active listening [] Non-anxious presence [] Spiritual/emotional support [] Crisis/trauma care [] Spiritual counseling [] Bereavement support [] Provided bereavement packet [] Provided Bible/devotional materials [] Provided toy/stuffed animal, coloring book to patient or family member [] Provided Communion [] Anointing/[place] [] Salvation [x] Completed spiritual assessment [] Other: Impact on Illness or Injury [] Angry [] Fearful [] Anxious [] Often cries [] Exhaustion [] Unable to work [] Unable to attend amish [] Unable to walk/stand [] Unable to read [] Unable to drive [] Unable to eat/drink [] Unable to sleep [] Unable to be with family [] Patient intubated [] Other: Summary Time spent with patient
[2021-07-30 12:03] LABS: Glucose Point of Care 292 mg/dL (70-110)
--- NOTE | 2021-07-30 15:10 | PC.NURSE ---
Report faxed to [facility]. Further verbal report given to JOSÉ MIGUEL Quintanilla.
[2021-07-30] MEDS: docusate sodium 100 mg Capsule PO (15:23)
--- NOTE | 2021-07-30 15:40 | PC.NURSE ---
Pt transferred to 262. Sister with pt, packed up his belongings and carried the upstairs to new room.
--- NOTE | 2021-07-30 17:13 | PM.MISC ---
Miscellaneous Note Purpose of Documentation: Mr. Mukherjee was transferred to the medical surgical sal today. He is doing well. I removed his knee immobilizer. He has 1-2+ palpable right dorsalis pedis pulse. Surgical dressings remain in place. I will plan to remove these tomorrow morning. GUS drain output throughout the day has been 65 cc total. Postoperative discomfort appears to be under good control.
[2021-07-30 17:59] LABS: Glucose Point of Care 234 mg/dL (70-110)
[2021-07-30] MEDS: enoxaparin 40 mg/0.4 mL Syringe SUBCUT (18:19)
--- NOTE | 2021-07-30 18:23 | PC.NURSE ---
PT HAD A TOTAL OF 45MLS OUT OF BOTH DRAINS, AWARE
[2021-07-30 20:59] LABS: Glucose Point of Care 447 mg/dL (70-110)
[2021-07-31] VITALS (19 sets, daily range): BP systolic 150–192; BP diastolic 83–101; PULSE 59–69; RESP 15–21; TEMP 36.4–37.1; O2SAT 92–98
[2021-07-31] MEDS: oxyCODONE 5 mg IR Tab/Cap 10 MG PO ×4 (02:55→21:48)
[2021-07-31] MEDS: acetaminophen 500 mg Tablet 1000 MG PO ×4 (02:55→21:43)
[2021-07-31 06:11] LABS: Glucose Point of Care 173 mg/dL (70-110)
--- NOTE | 2021-07-31 06:13 | PC.NURSE ---
DR VISIT/DRESSING CHANGE Dr Rodriguez here this am. Dressing change done and GUS Drains were removed. Butch well
--- NOTE | 2021-07-31 06:25 | P.PN_ITS ---
Subjective Subjective: Status Postop day #2 status post distal SFA to tibioperoneal trunk bypass Slept well last night. Postop discomfort under good control Palpable right dorsalis pedis pulse Surgical dressings changed. Incision line clean, dry, and intact. GUS drain removed. 1+ peripheral edema right lower extremity Vitals/I&O/Wt Last Vital Signs Temp 98.1 F 07/31/21 04:30 Pulse 60 07/31/21 04:30 Resp 17 07/31/21 04:30 BP 166/94 07/31/21 04:30 Pulse Ox 95 07/31/21 04:30 07/30/21 07/30/21 07/31/21 14:59 22:59 06:59 Intake Total 1350 / 1350 2240 / 3590 0 / 3590 Output Total 795 / 795 1117 / 1912 1927 Balance 555 / 555 1123 / 1678 -1661 Weight last 48 hrs Weight 225 lb Physical Exam Extremity: NARRATIVE EXTREMITY EXAM: There is a trace to 1+ peripheral edema of the right lower extremity Surgical incision is dry, and intact. GUS drains were removed. Incision line was painted with Betadine and redressed. 1-2+ palpable dorsalis pedis pulse on the right Urinary Catheter Management: [place]: Cath Placed During This Visit: yes, but has since been removed by the nurse Reason for Continuing Indwelling Catheter: Decision to DC Catheter Urinary Catheter Date of Insertion: 07/29/21 Urinary Catheter Time of Insertion: 07:25 Date Urinary Catheter Removed: 07/30/21 Time Urinary Catheter Discontinued: 06:23 Data : 07/24/21 15:34 07/24/21 15:34 A&P Assessment and plan (1) Peripheral Vascular Disease: Postop day #2 status post femoral to tibioperoneal bypass Plan: Physical therapy evaluation. Increase ambulation. Home health referral. Plan for discharge tomorrow. Status: Acute Attestations Medical Necessity Statement*: Status post femoral tibial peroneal bypass post op day #2 Coding Level of Care Code Acute Treatment Specialist for Yeni Pelletier Diagnoses Peripheral Vascular Disease I73.9
--- NOTE | 2021-07-31 07:33 | PC.NURSE ---
I reported the highbp to the nurse 192/
--- NOTE | 2021-07-31 07:49 | PC.NURSE ---
ENGINE ASSEMBLER reported blood pressure of 192/99. Called and spoke with Dr. Rodriguez and he requested the patient be put back on his home medication of hydralizine 100mg BID and Valsartan 320 mg QD. I placed order for hydralazine. I called pharmacy regarding the order for Valsartan and I will be putting in a continuation of home medication order.
[2021-07-31] MEDS: insulin lispro 100 unit/1 mL SUBCUT ×4 (08:41→21:43)
[2021-07-31] MEDS: atorvastatin 40 mg Tablet 80 MG PO (08:46)
[2021-07-31] MEDS: magnesium oxide 400 mg tablet PO (08:46)
[2021-07-31] MEDS: clopidogrel 75 mg Tablet PO (08:46)
[2021-07-31] MEDS: carvedilol 3.125 mg Tablet PO ×2 (08:47→18:37)
[2021-07-31] MEDS: losartan 50 mg Tablet 100 MG PO (08:48)
[2021-07-31] MEDS: tamsulosin 0.4 mg Capsule PO (08:49)
[2021-07-31] MEDS: FUROsemide 20 mg Tablet PO (08:49)
[2021-07-31] MEDS: zinc gluconate 50 mg Tablet PO (08:49)
[2021-07-31] MEDS: pantoprazole DR 40 mg Tablet PO (08:49)
[2021-07-31] MEDS: gabapentin 300 mg Capsule PO ×3 (08:49→21:44)
[2021-07-31] MEDS: aspirin 325 mg Tablet PO (08:49)
[2021-07-31] MEDS: baclofen 10 mg Tablet PO (08:50)
[2021-07-31] MEDS: hyDRALAzine 50 mg Tablet 100 MG PO ×2 (08:50→16:30)
[2021-07-31 12:19] LABS: Glucose Point of Care 222 mg/dL (70-110)
--- NOTE | 2021-07-31 14:39 | PC.NURSE ---
Patient walked around both nurses stations with nursing staff with use of a walker. Patient was not short of breath upon exertion. Patient was not in a lot of pain while walking. Patient was able to have a bowel movement after activity.
--- NOTE | 2021-07-31 16:17 | PC.NURSE ---
JAGDISH informed me that the patient has a blood pressure of 182/100. I called and spoke with Dr. Rodriguez regarding the patient's blood pressure. I informed Dr. Rodriguez that the patient's next dose of hydralazine 100mg is at 1800. Dr. Rodriguez told me I could give the patient the medication now instead of waiting until 1800.
[2021-07-31 16:38] LABS: Glucose Point of Care 217 mg/dL (70-110)
[2021-07-31] MEDS: enoxaparin 40 mg/0.4 mL Syringe SUBCUT (18:36)
[2021-07-31 20:57] LABS: Glucose Point of Care 196 mg/dL (70-110)
[2021-08-01] VITALS (9 sets, daily range): BP systolic 181–200; BP diastolic 98–110; PULSE 56–68; RESP 16–17; TEMP 36.1–36.8; O2SAT 95–97
[2021-08-01] MEDS: acetaminophen 500 mg Tablet 1000 MG PO ×2 (03:15→09:49)
[2021-08-01] MEDS: hyDRALAzine 50 mg Tablet 100 MG PO (04:51)
[2021-08-01] MEDS: carvedilol 3.125 mg Tablet PO (04:51)
--- NOTE | 2021-08-01 06:00 | P.DS_ITS ---
Discharge Providers Date of Admission: 07/29/21 05:39 Date of Discharge: August 01, 2021 Attending Provider at Admission: Kunal Rodriguez MD Attending Provider at Discharge: Kunal Rodriguez MD Primary Care Provider: Jackelin Cardona MD Diagnoses at Discharge Discharge Diagnosis (1) Peripheral Vascular Disease: Details from hospital stay: Mr. Mukherjee has peripheral vascular disease and recurrent stenotic lesion in the right popliteal artery for which he underwent successful intervention a year ago by Dr. Herrera. He had recurrent classic claudication symptoms of the right lower extremity and indeed by angiography by Dr. Deluca the lesion has recurred. Attempted intervention was planned due to the severe calcification and recalcitrance of this lesion it was felt that consideration for surgical revascularization should be entertained. Therefore, after careful preoperative valuation Mr. Mukherjee was electively admitted and underwent a right distal SFA to tibioperoneal trunk bypass utilizing reverse saphenous vein graft on July 29. Postoperative, he initially convalesced in the ICU for 24 hours and then was transferred to the sal. He has maintained a palpable right dorsalis pedis pul se. GUS drains were removed after approximately 48 hours. He has modest right lower extremity edema, though this is improving. He has been evaluated by physical therapy and is felt to be safe for ambulation and for discharge from their standpoint. Vital signs have remained stable throughout the hospital stay. He has been a bit hypertensive requiring some augmentation. We do not have valsartan which was one of his antihypertensive home meds. Remainder of his hospital stay is uneventful. Home health nursing care has been arranged. He will be discharged to home today in stable condition with scheduled follow-up in my clinic in 1 week. Discharge instructions have been carefully reviewed and we have confirmed home health services are available. Status: Acute Physical Exam Resp: COMMON NORMALS: normal respiratory effort, No use of accessory muscles and clear to auscultation bilaterally AUSCULTATION: clear to auscultation bilaterally Cardio: COMMON NORMALS: regular rate, regular rhythm, S1 normal heart sound present and No murmurs present (Cardio) RATE: regular rate RHYTHM: regular rhythm HEART SOUNDS: S1 normal heart sound present Extremity: NARRATIVE EXTREMITY EXAM: Surgical incisions in the right thigh and leg are clean, dry, and well approximated. Trace to 1+ right lower extremity peripheral edema. Palpable right dorsalis pedis pulse which was not present preoperatively. No evidence for embolic phenomenon. Urinary Catheter Management: [place]: Cath Placed During This Visit: yes, but has since been removed by the nurse Reason for Continuing Indwelling Catheter: Decision to DC Catheter Urinary Catheter Date of Insertion: 07/29/21 Urinary Catheter Time of Insertion: 07:25 Date Urinary Catheter Removed: 07/30/21 Time Urinary Catheter Discontinued: 06:23 Discharge Data Studies Completed and Pending Pending at discharge Category Date Time Status Leukocyte Reduced RBC Routine Lab 07/24/21 15:34 Results Type and Screen Routine Lab 07/24/21 15:34 Results Laboratory Results WBC 5.6 10^3/uL (4.0-10.0) 07/24/21 15:34 RBC 4.27 10^6/uL (4.1-5.3) 07/24/21 15:34 Hgb 13.9 g/dL (11.7-16.6) 07/24/21 15:34 Hct 40.3 % (42.0-52.0) L 07/24/21 15:34 MCV 94.4 fl (80-94) H 07/24/21 15:34 MCH 32.6 pg (28.0-34.0) 07/24/21 15:34 MCHC 34.5 g/dL (30.0-36.0) 07/24/21 15:34 RDW 12.4 % (12.1-15.1) 07/24/21 15:34 Plt Count 171 10^3/cmm (130-400) 07/24/21 15:34 MPV 9.1 fL (7.4-10.4) 07/24/21 15:34 Neut % (Auto) 58.5 % 07/24/21 15:34 Lymph % (Auto) 24.4 % 07/24/21 15:34 [place] % (Auto) 11.7 % 07/24/21 15:34 Eos % (Auto) 3.6 % 07/24/21 15:34 Baso % (Auto) 1.4 % 07/24/21 15:34 Neut # (Auto) 3.26 10^3/uL (1.8-7.7) 07/24/21 15:34 Lymph # (Auto) 1.4 10^3/uL (0.8-4.8) 07/24/21 15:34 [place] # (Auto) 0.7 10^3/uL (0.2-0.9) 07/24/21 15:34 Eos # (Auto) 0.2 10^3/uL (0.0-0.8) 07/24/21 15:34 Baso # (Auto) 0.1 10^3/uL (0.0-0.1) 07/24/21 15:34 Nucleated RBC % (auto) 0 % 07/24/21 15:34 Nucleated RBCs # 0.0 /100WBC 07/24/21 15:34 Sodium 134 mmol/L (136-145) L 07/24/21 15:34 Potassium 4.1 mmol/L (3.5-5.1) 07/24/21 15:34 Chloride 95 mmol/L (98-107) L 07/24/21 15:34 Carbon Dioxide 24 mmol/L (22-29) 07/24/21 15:34 Anion Gap 19.1 (5-19) H 07/24/21 15:34 BUN 46 mg/dL (8-23) H 07/24/21 15:34 Creatinine 1.6 mg/dL (0.7-1.2) H 07/24/21 15:34 GFR Calculation 43.2 mL/min (90-130) L 07/24/21 15:34 Glucose 210 mg/dL (65-115) H 07/24/21 15:34 POC Glucose 196 mg/dL (70-110) H 07/31/21 20:48 Calculated Osmolality 296 mOsm/kg (285-295) H 07/24/21 15:34 Calcium 9.5 mg/dL (8.5-10.5) 07/24/21 15:34 Urine Color Yellow (Yellow) 07/24/21 15:34 Urine Appearance Clear (CLEAR) 07/24/21 15:34 Urine pH 5 (5-7) 07/24/21 15:34 Ur Specific [place] 1.020 (1.005-1.030) 07/24/21 15:34 Urine Protein 2+ (Negative) H 07/24/21 15:34 Urine Glucose (UA) 2+ (Normal) H 07/24/21 15:34 Urine Ketones Negative (Negative) 07/24/21 15:34 Urine Blood Neg (Negative) 07/24/21 15:34 Urine Nitrate Negative (Negative) 07/24/21 15:34 Urine Bilirubin Neg (Negative) 07/24/21 15:34 Urine Urobilinogen Neg mg/dL (Negative) 07/24/21 15:34 Ur Leukocyte Esterase Negative (Negative) 07/24/21 15:34 Urine RBC None /hpf (0-2) 07/24/21 15:34 Urine WBC Rare /hpf (0-5) 07/24/21 15:34 Ur Squamous Epith Cells Rare /hpf (0-5) 07/24/21 15:34 Amorphous Sediment Not Reportable 07/24/21 15:34 Urine Bacteria None /hpf (NONE) 07/24/21 15:34 Blood Type A Positive 07/24/21 15:34 Rho(D) Type Positive 07/24/21 15:34 Antibody Screen Negative 07/24/21 15:34 Crossmatch See Detail 07/24/21 15:34 Procedures Performed Right distal superficial femoral artery to right tibial peroneal trunk bypass utilizing reverse under his vein graft on July 29, 2021 Vitals Last Vital Signs Temp 98.0 F 08/01/21 03:00 Pulse 56 L 08/01/21 03:00 Resp 17 08/01/21 03:00 BP 200/110 08/01/21 03:00 Pulse Ox 95 08/01/21 03:00 Discharge Plan Discharge Patient Disposition: Home Health Service Condition: Stable Prescriptions: Continued carvedilol 3.125 mg tablet 3.125 mg PO BID Qty: 180 3RF Rx Instructions: must administer with a meal/food clopidogrel 75 mg tablet 75 mg PO DAILY Qty: 90 3RF rosuvastatin 40 mg tablet 40 mg PO DAILY Qty: 90 3RF valsartan 320 mg tablet 320 mg PO DAILY Qty: 90 3RF baclofen 10 mg tablet 10 mg PO DAILY 0RF glipizide 10 mg tablet 10 mg PO BID 0RF albuterol sulfate 90 mcg/actuation HFA aerosol inhaler 2 puff inhalation Q6H PRN (Reason: Shortness Of Breath Or Wheezing) 0RF albuterol sulfate 2.5 mg/0.5 mL solution for nebulization 2.5 mg inhalation Q20M 0RF Rx Instructions: for up to 3 doses aspirin 325 mg tablet 325 mg PO DAILY 0RF diclofenac sodium [Voltaren] 1 % gel 4 g topical QID PRN (Reason: Pain) 0RF Rx Instructions: apply to single knee, ankle, foot; for foot includes sole/toes/top of foot Flovent Diskus 50 mcg/actuation blister with device 2 inh inhalation DAILY 0RF magnesium oxide 400 mg magnesium capsule 400 mg PO DAILY 0RF tamsulosin 0.4 mg capsule 0.4 mg PO DAILY 0RF testosterone cypionate [Depo-Testosterone] 200 mg/mL oil 200 mg IM .Q 14 DAYS 0RF sildenafil [Viagra] 100 mg tablet 100 mg PO DAILY PRN (Reason: Sexual Activity) 0RF Rx Instructions: administer 30 minutes to 4 hours before activity ascorbic acid (vitamin C) 1,000 mg tablet extended release 1,000 mg PO DAILY 0RF zinc gluconate 100 mg tablet 50 mg PO DAILY 0RF gabapentin 300 mg capsule 300 mg PO BID PRN (Reason: Pain) 0RF Lantus U-100 Insulin 100 unit/mL solution 26 unit SUBCUT DAILY 0RF alogliptin 12.5 mg tablet 12.5 mg PO BID 0RF lactulose 10 gram/15 mL solution 15 ml PO BID 14 Days Qty: 420 0RF furosemide 20 mg Tablet 20 mg PO DAILY 0RF hydrocodone-acetaminophen 10-325 mg Tablet 1 tab PO TID PRN (Reason: Pain) 0RF hydralazine 100 mg Tablet 100 mg PO BID 0RF prednisone 10 mg tablet 30 mg PO DAILY PRN (Reason: Wheezing) 0RF Discharge Orders: Discharge Order (Routine); Ordered 08/01/21 Ordered By: Kunal Rodriguez Referrals: Kunal Rodriguez MD [Physician] - 1 week Discharge Diet: Usual diet Discharge Activity: Limit activity as instructed Patient Instructions: Opioid Safety Activity Restrictions/Additional Instructions: No swimming or tub baths x1 month No heavy lifting or pulling x1 month May shower with dressings off of incisions Dry incisions completely after showering. May recover incisions if desired to prevent irritation from clothing Report any redness, increasing swelling, increasing pain, or fever Do not bend right knee past 45 degrees for the next 2 weeks Discharge Attestations Time Spent in Discharge Care*: less than 30 min Specific Discharge Activities: educating patient, discussing with case repairer/social workers/dc planners, documenting/other paperwork and evaluating patient/reviewing data Status at Discharge: Cognitive status at discharge: cognitively intact , Behavioral status at discharge: cooperative , Functional status at discharge: uses cane/walker , Overall status at discharge: patient is progressing back to baseline Quality Metrics Clinical Quality Measures [ No reported AMI, CVA or VTE this stay] Coding Level of Care Code Acute [facility] note Diagnoses Peripheral Vascular Disease I73.9
--- NOTE | 2021-08-01 07:51 | PC.NURSE ---
CRUCIBLE PACKER reported blood pressure of 185/[address] Rodriguez but was unsuccessful. Will call again in 5 minutes.
[2021-08-01] MEDS: baclofen 10 mg Tablet PO (09:49)
[2021-08-01] MEDS: zinc gluconate 50 mg Tablet PO (09:49)
[2021-08-01] MEDS: tamsulosin 0.4 mg Capsule PO (09:49)
[2021-08-01] MEDS: gabapentin 300 mg Capsule PO (09:49)
[2021-08-01] MEDS: atorvastatin 40 mg Tablet 80 MG PO (09:49)
[2021-08-01] MEDS: FUROsemide 20 mg Tablet PO (09:49)
[2021-08-01] MEDS: magnesium oxide 400 mg tablet PO (09:49)
[2021-08-01] MEDS: aspirin 325 mg Tablet PO (09:50)
[2021-08-01] MEDS: pantoprazole DR 40 mg Tablet PO (09:50)
[2021-08-01] MEDS: clopidogrel 75 mg Tablet PO (09:50)
[2021-08-01] MEDS: losartan 50 mg Tablet 100 MG PO (09:50)
[2021-08-01 09:52] LABS: Glucose Point of Care 280 mg/dL (70-110)
[2021-08-01] MEDS: insulin lispro 100 unit/1 mL SUBCUT (09:58)
[2021-08-01] MEDS: cloNIDine 0.1 mg Tablet PO (11:07)
[2021-08-01 11:53] LABS: Glucose Point of Care 221 mg/dL (70-110)
== END 2021-08-01 12:15 | disposition home health service (06) | DRG 263 ==
LOC: ICU 16:46 → MEDSURG 07-30 15:28
PROVIDERS: Admitting Provider Thoracic Surgery (Cardiothoracic Vascular Surgery); PCP Family Medicine; Visit Provider Thoracic Surgery (Cardiothoracic Vascular Surgery)
PROC: 06R Lower Veins, Replacement (ICD-10-PCS; principal; 2021-07-29 07:00)
DX: E11.51 Type 2 diabetes mellitus with diabetic peripheral angiopathy without gangrene (principal); Z96.651 Presence of right artificial knee joint; Z87.891 Personal history of nicotine dependence; E78.5 Hyperlipidemia, unspecified; Z79.02 Long term (current) use of antithrombotics/antiplatelets; Z79.84 Long term (current) use of oral hypoglycemic drugs; Z79.51 Long term (current) use of inhaled steroids
CPT/HCPCS: 36415; 36416; 51702; 80048; 81001; 82962; 85025; 86850; 86900; 86920; 93005; 96372; 97116; 97161; J0360; J0690; J1100; J1170; J1644; J1650; J1815; J2270; J2370; J2405; J2704; J2720; J3010; J3370; J3490; J7030

== ENCOUNTER → 2021-08-08 08:52 | Outpatient (BNVA) | payer OTHER, SELFPAY | PROVIDERS: PCP Family Medicine; Visit Provider Thoracic Surgery (Cardiothoracic Vascular Surgery) | DX: Z98.890 Other specified postprocedural states (principal) | CPT/HCPCS: 99024 ==

== ENCOUNTER → 2021-08-21 09:14 | Outpatient (BNVA) | payer OTHER, SELFPAY | PROVIDERS: PCP Family Medicine; Visit Provider Thoracic Surgery (Cardiothoracic Vascular Surgery) | DX: Z98.890 Other specified postprocedural states (principal) | CPT/HCPCS: 99024 ==

== ENCOUNTER → 2021-08-28 10:50 | Outpatient (BNVA) | payer OTHER, SELFPAY | PROVIDERS: PCP Family Medicine; Visit Provider Thoracic Surgery (Cardiothoracic Vascular Surgery) | DX: Z98.890 Other specified postprocedural states (principal) | CPT/HCPCS: 99024 ==

== ENCOUNTER → 2021-10-16 09:23 | Outpatient (BNVA) | payer OTHER, SELFPAY | PROVIDERS: PCP Family Medicine; Visit Provider Thoracic Surgery (Cardiothoracic Vascular Surgery) | DX: Z98.890 Other specified postprocedural states (principal) | CPT/HCPCS: 99024 ==

== ENCOUNTER 2021-10-24 07:03 | Day surgery (SDC) | payer OTHER, SELFPAY ==
[2021-10-22 11:59] VITALS: BMI 27.9
[2021-10-24 07:35] VITALS: BP 213/97; PULSE 65; RESP 18; TEMP 36.4; O2SAT 95
[2021-10-24] MEDS: sodium chloride 0.9% 1,000 ML 30 ML IV (07:40)
--- NOTE | 2021-10-24 08:01 | P.ANESASSM_ITS ---
Pre-Anesthetic Assessment Height/Weight: Height 1.85 m Weight 96.162 kg Temp Pulse Resp BP Pulse Ox O2 Del Method 97.6 F 65 18 213/97 95 10/24/21 07:35 10/24/21 07:35 10/24/21 07:35 10/24/21 07:35 10/24/21 07:35 10/24/21 07:35 Preop Diagnosis: diagnostic Operation Date: 10/24/21 09:00 Proposed Procedures p Colonoscopy 93717/screening colonoscopy Z12.11(Not Applicable) - Low Martin MD Familial anesthetic complications: Urinary retention Was Beta Juan taken within 24 hours: Yes Last intake: Intake Last Liquid Date 10/23/21 Last Liquid Time 22:00 Last Solid Date 10/22/21 Last Solid Time 20:00 Social No alcohol and No tobacco Exam alert, oriented x 3, clear to auscultation bilaterally and regular rate & rhythm Cardiac murmur Airway Submandibular: within normal limits Cervical ROM: within normal limits Mallampati: Class II Dentition: false Pulmonary None reported CV/HEM Murmur and Peripheral Vascular Disease Hx of CABG Able to go up a flight of stairs TTE 07/2021 CONCLUSIONS ?LV systolic function is normal with EF of 60 to 65%. ?Diastolic function is normal. ?Trace mitral regurgitation. ?Trace tricuspid regurgitation. ?Mild pulmonic regurgitation. ?No comparison studies are available Chronic Renal Failure Hepatic None reported GI None reported Metabolic Diabetes Mellitus [facility] [place] Osteoarthritis/DJD Neuropsych None reported Anesthetic Plan ASA status: 3 (66 year old male with hx of HTN , CAD s/p CABG , DM with CKD) Anesthesia: Anesthesia Evaluation and MAC Other: I discussed with the patient risks, goals, and benefits of MAC and general anesthesia. We discussed spectrum of MAC anesthesia including conversion to general as well as possibility of recall of intraoperative stimuli including discomfort/pain. Patient agrees to proceed with MAC. Risk of > 500 ml blood loss (7ml/kg in children): No Medications/Allergies Home Medications Medication Instructions Recorded Confirmed Last Taken Type baclofen 10 mg tablet 10 mg PO DAILY 10/24/19 10/22/21 10/23/21 History albuterol sulfate 2.5 mg/0.5 mL 2.5 mg inhalation Q20M 05/16/20 10/22/21 Unknown History solution for nebulization albuterol sulfate 90 mcg/actuation 2 puff inhalation Q6H PRN 05/16/20 10/22/21 Unknown History aerosol inhaler Shortness Of Breath Or Wheezing ascorbic acid (vitamin C) 1,000 mg 1,000 mg PO DAILY 05/16/20 10/22/21 10/23/21 History tablet,extended release aspirin 325 mg tablet 325 mg PO DAILY 05/16/20 10/22/21 10/19/21 History diclofenac sodium 1 % topical gel 4 g topical QID PRN Pain 05/16/20 10/22/21 10/23/21 History (Voltaren) fluticasone propionate 50 2 inh inhalation DAILY PRN 05/16/20 10/22/21 10/23/21 History mcg/actuation blister powder for Shortness Of Breath inhalation (Flovent Diskus) magnesium oxide 400 mg PO DAILY 05/16/20 10/22/21 10/23/21 History sildenafil 100 mg tablet (Viagra) 100 mg PO DAILY PRN Sexual Activity 05/16/20 10/22/21 Unknown History tamsulosin 0.4 mg capsule 0.4 mg PO DAILY 05/16/20 10/22/21 10/23/21 History testosterone cypionate 200 mg/mL 200 mg IM .Q 14 DAYS 05/16/20 10/22/21 07/20/21 History intramuscular oil (Depo-Testosterone) gabapentin 300 mg capsule 300 mg PO BID PRN Pain 10/24/20 10/22/21 10/23/21 History glipizide 10 mg tablet 20 mg PO BID 10/24/20 10/22/21 10/23/21 History insulin glargine 100 unit/mL 20 unit SUBCUT BEDTIME 10/24/20 10/22/21 10/22/21 History subcutaneous solution (Lantus U-100 Insulin) alogliptin 12.5 mg tablet 12.5 mg PO BID 02/10/21 10/22/21 10/23/21 History clopidogrel 75 mg tablet 75 mg PO DAILY #90 tabs 02/10/21 10/22/21 10/17/21 Rx rosuvastatin 40 mg tablet 40 mg PO DAILY #90 tabs 02/10/21 10/22/21 10/23/21 Rx valsartan 320 mg tablet 320 mg PO DAILY #90 tabs 02/10/21 10/22/2122 Rx furosemide 20 mg tablet 20 mg PO DAILY 05/31/21 10/22/21 10/23/21 History hydrocodone 10 mg-acetaminophen 1 tab PO TID PRN Pain 05/31/21 10/22/21 10/23/21 History 325 mg tablet carvedilol 6.25 mg tablet 3.125 mg PO BID 09/15/21 10/22/21 10/23/21 History zinc 50 mg tablet 50 mg PO DAILY 09/15/21 10/22/21 10/23/21 History dapagliflozin 10 mg tablet 10 mg PO DAILY 10/16/21 10/22/21 10/23/21 History (Farxiga) cholecalciferol (vitamin D3) 25 25 mcg PO DAILY 10/22/21 10/22/21 10/23/21 History mcg (1,000 unit) capsule (Vitamin D3) Allergies Allergy/AdvReac Type Severity Reaction Status Date / Time No Known Allergies Allergy Unknown Unverified 10/16/21 10:02 Current Medications Generic Name Dose Route Start Last Admin Trade Name Freq PRN Reason Stop Dose Admin Sodium Chloride 1,000 mls @ 30 mls/hr 10/24/21 07:30 10/24/21 07:40 Sodium Chloride 0.9% IV 10/25/21 07:29 30 mls/hr .Q24H NICOLETTE Administration PFSH Anesthesia Medical History Hyperlipidemia associated with type 2 diabetes mellitus Hypertension Peripheral Vascular Disease Surgical History History of cholecystectomy History of colonoscopy with polypectomy 2013 Hx of CABG Family History Denies family history of Diabetes CAD (coronary artery disease) Cancer Social History Smoking and tobacco status: former smoker Quit status (tobacco): has quit using tobacco Year quit tobacco: 1995 Alcohol intake: never Lives independently: Yes Household members: spouse Housing: House Marital status: Number of children: 2 Pets and animals: Yes Pets & animals: cat(s) and dog(s) Data Anesthesia Cardiac Studies: Echocardiogram 07/28/21
--- NOTE | 2021-10-24 09:06 | W.PM.OPSFHP ---
Same Day Surgery H&P Indication for Procedure/HPI DATE OF PROCEDURE: October 24, 2021 CHIEF COMPLAINT/INDICATIONFOR SURGICAL PROCEDURE: colonoscopy PREOP DIAGNOSIS: diagnostic PLANNED PROCEDURE: Operation Date: 10/24/21 09:00 Proposed Procedures p Colonoscopy 42840/screening colonoscopy Z12.11(Not Applicable) - Low Martin MD Medications/Allergies* Home Medications Medication Instructions Recorded Confirmed Type baclofen 10 mg tablet 10 mg PO DAILY 10/24/19 10/22/21 History albuterol sulfate 2.5 mg/0.5 mL 2.5 mg inhalation Q20M 05/16/20 10/22/21 History solution for nebulization albuterol sulfate 90 mcg/actuation 2 puff inhalation Q6H PRN 05/16/20 10/22/21 History aerosol inhaler Shortness Of Breath Or Wheezing ascorbic acid (vitamin C) 1,000 mg 1,000 mg PO DAILY 05/16/20 10/22/21 History tablet,extended release aspirin 325 mg tablet 325 mg PO DAILY 05/16/20 10/22/21 History diclofenac sodium 1 % topical gel 4 g topical QID PRN Pain 05/16/20 10/22/21 History (Voltaren) fluticasone propionate 50 2 inh inhalation DAILY PRN 05/16/20 10/22/21 History mcg/actuation blister powder for Shortness Of Breath inhalation (Flovent Diskus) magnesium oxide 400 mg PO DAILY 05/16/20 10/22/21 History sildenafil 100 mg tablet (Viagra) 100 mg PO DAILY PRN Sexual Activity 05/16/20 10/22/21 History tamsulosin 0.4 mg capsule 0.4 mg PO DAILY 05/16/20 10/22/21 History testosterone cypionate 200 mg/mL 200 mg IM .Q 14 DAYS 05/16/20 10/22/21 History intramuscular oil (Depo-Testosterone) gabapentin 300 mg capsule 300 mg PO BID PRN Pain 10/24/20 10/22/21 History glipizide 10 mg tablet 20 mg PO BID 10/24/20 10/22/21 History insulin glargine 100 unit/mL 20 unit SUBCUT BEDTIME 10/24/20 10/22/21 History subcutaneous solution (Lantus U-100 Insulin) alogliptin 12.5 mg tablet 12.5 mg PO BID 02/10/21 10/22/21 History furosemide 20 mg tablet 20 mg PO DAILY 05/31/21 10/22/21 History hydrocodone 10 mg-acetaminophen 1 tab PO TID PRN Pain 05/31/21 10/22/21 History 325 mg tablet carvedilol 6.25 mg tablet 3.125 mg PO BID 09/15/21 10/22/21 History zinc 50 mg tablet 50 mg PO DAILY 09/15/21 10/22/21 History dapagliflozin 10 mg tablet 10 mg PO DAILY 10/16/21 10/22/21 History (Farxiga) cholecalciferol (vitamin D3) 25 25 mcg PO DAILY 10/22/21 10/22/21 History mcg (1,000 unit) capsule (Vitamin D3) Allergies/Adverse Reactions Allergy/AdvReac Type Severity Reaction Status Date / Time No Known Allergies Allergy Unknown Unverified 10/16/21 10:02 Current Medications: Generic Name Dose Route Start Last Admin Trade Name Freq PRN Reason Stop Dose Admin Sodium Chloride 1,000 mls @ 30 mls/hr 10/24/21 07:30 10/24/21 07:40 Sodium Chloride 0.9% IV 10/25/21 07:29 30 mls/hr .Q24H NICOLETTE Administration Pertinent History/Comorbid Conditions* Medical History (Updated 07/22/21 @ 08:26 by Low Martin MD) Hyperlipidemia associated with type 2 diabetes mellitus Hypertension Peripheral Vascular Disease Surgical History (Updated 07/22/21 @ 08:26 by Low Martin MD) History of cholecystectomy History of colonoscopy with polypectomy 2013 Hx of CABG Family History (Updated 05/16/20 @ 10:28 by Blanca Davis LPN) Denies family history of Diabetes CAD (coronary artery disease) Cancer Social History Smoking and tobacco status: former smoker Quit status (tobacco): has quit using tobacco Year quit tobacco: 1995 Alcohol intake: never Lives independently: Yes Household members: spouse Housing: House Marital status: Number of children: 2 Pets and animals: Yes Pets & animals: cat(s) and dog(s) Pertinent Exam Findings alert, oriented x 3 and regular rate & rhythm Recommendations Surgery/Procedure today Coding Level of Care Code Acute Social Sciences Department Chair for Yeni Pelletier
[2021-10-24 09:35] VITALS: BP 142/89; PULSE 74; RESP 14; TEMP 36.1; O2SAT 95
[2021-10-24 09:46] VITALS: BP 171/94; PULSE 55; RESP 16; O2SAT 96
--- NOTE | 2021-10-24 13:21 | ANE.PACU2 ---
Inpatient post-anesthesia follow up: Airway intact: Yes Vital signs: Temperature 97 F Pulse Rate 55 Respiratory Rate 16 Blood Pressure 171/94 Pulse Oximetry 96 Oxygen Delivery Me thod Room Air Oxygen Flow Rate Fraction of Inspir ed Oxygen Hydration adequate: Yes Nausea and vomiting: No Pain level: 1 Mental status: Baseline
== END 2021-10-24 09:57 | disposition home or self-care (01) ==
PROVIDERS: PCP Family Medicine; Visit Provider Surgery
PROC: 0DJD8ZZ Inspection of Lower Intestinal Tract, Via Natural or Artificial Opening Endoscopic (ICD-10-PCS; CPT 45378; principal; 2021-10-24 09:00)
DX: Z12.11 Encounter for screening for malignant neoplasm of colon (principal); K63.5 Polyp of colon; M19.90 Unspecified osteoarthritis, unspecified site; I25.10 Atherosclerotic heart disease of native coronary artery without angina pectoris; Z95.1 Presence of aortocoronary bypass graft; E11.22 Type 2 diabetes mellitus with diabetic chronic kidney disease; I12.9 Hypertensive chronic kidney disease with stage 1 through stage 4 chronic kidney disease, or unspecified chronic kidney disease; N18.9 Chronic kidney disease, unspecified; Z79.4 Long term (current) use of insulin; Z87.891 Personal history of nicotine dependence
CPT/HCPCS: 45385; 88305; J2704; J7030

== ENCOUNTER → 2021-11-04 09:56 | Outpatient (BNVA) | payer OTHER, SELFPAY | PROVIDERS: PCP Family Medicine; Visit Provider Surgery | DX: Z09 Encounter for follow-up examination after completed treatment for conditions other than malignant neoplasm (principal) | CPT/HCPCS: 99212 ==

== ENCOUNTER → 2022-02-12 15:15 | Outpatient (BNVA) | payer OTHER, SELFPAY | PROVIDERS: PCP Family Medicine; Visit Provider Internal Medicine | DX: I73.9 Peripheral vascular disease, unspecified (principal); Z95.1 Presence of aortocoronary bypass graft; Z87.891 Personal history of nicotine dependence | CPT/HCPCS: 99214 ==

== ENCOUNTER → 2022-03-03 09:13 | Outpatient (BNVA) | payer OTHER, SELFPAY | PROVIDERS: PCP Family Medicine; Referring Provider Family Medicine; Visit Provider Internal Medicine | DX: E11.59 Type 2 diabetes mellitus with other circulatory complications (principal); E11.69 Type 2 diabetes mellitus with other specified complication; E11.40 Type 2 diabetes mellitus with diabetic neuropathy, unspecified; E11.29 Type 2 diabetes mellitus with other diabetic kidney complication; N18.9 Chronic kidney disease, unspecified; E78.2 Mixed hyperlipidemia; Z95.1 Presence of aortocoronary bypass graft; I73.9 Peripheral vascular disease, unspecified; I25.10 Atherosclerotic heart disease of native coronary artery without angina pectoris; Z79.4 Long term (current) use of insulin; Z79.84 Long term (current) use of oral hypoglycemic drugs | CPT/HCPCS: 99204 ==

== ENCOUNTER → 2022-03-17 08:51 | Outpatient (BNVA) | payer OTHER, SELFPAY | PROVIDERS: PCP Family Medicine; Visit Provider Internal Medicine | DX: E11.29 Type 2 diabetes mellitus with other diabetic kidney complication (principal); E11.59 Type 2 diabetes mellitus with other circulatory complications; E11.40 Type 2 diabetes mellitus with diabetic neuropathy, unspecified; E11.69 Type 2 diabetes mellitus with other specified complication; N18.30 Chronic kidney disease, stage 3 unspecified; E78.2 Mixed hyperlipidemia; Z95.1 Presence of aortocoronary bypass graft; I73.9 Peripheral vascular disease, unspecified; I25.10 Atherosclerotic heart disease of native coronary artery without angina pectoris; Z79.4 Long term (current) use of insulin | CPT/HCPCS: 99214 ==

== ENCOUNTER → 2022-04-13 08:02 | Outpatient (BNVA) | payer OTHER, SELFPAY | PROVIDERS: PCP Family Medicine; Visit Provider Podiatrist Foot & Ankle Surgery | DX: E11.8 Type 2 diabetes mellitus with unspecified complications (principal); I73.9 Peripheral vascular disease, unspecified; B35.1 Tinea unguium; M20.41 Other hammer toe(s) (acquired), right foot; M20.42 Other hammer toe(s) (acquired), left foot; G62.9 Polyneuropathy, unspecified; Z79.84 Long term (current) use of oral hypoglycemic drugs | CPT/HCPCS: 11721; 99204 ==

== ENCOUNTER → 2022-06-15 10:59 | Outpatient (BNVA) | payer OTHER, SELFPAY | PROVIDERS: PCP Family Medicine; Visit Provider Podiatrist Foot & Ankle Surgery | DX: I73.9 Peripheral vascular disease, unspecified (principal); B35.1 Tinea unguium; M20.41 Other hammer toe(s) (acquired), right foot; M20.42 Other hammer toe(s) (acquired), left foot; G62.9 Polyneuropathy, unspecified; E11.42 Type 2 diabetes mellitus with diabetic polyneuropathy; Z79.4 Long term (current) use of insulin | CPT/HCPCS: 11721 ==

== ENCOUNTER → 2022-07-21 08:07 | Outpatient (BNVA) | payer OTHER, SELFPAY | PROVIDERS: PCP Family Medicine; Visit Provider Internal Medicine | DX: E11.22 Type 2 diabetes mellitus with diabetic chronic kidney disease (principal); N18.30 Chronic kidney disease, stage 3 unspecified; E11.69 Type 2 diabetes mellitus with other specified complication; E11.40 Type 2 diabetes mellitus with diabetic neuropathy, unspecified; E11.59 Type 2 diabetes mellitus with other circulatory complications; E78.2 Mixed hyperlipidemia; Z95.1 Presence of aortocoronary bypass graft; I73.9 Peripheral vascular disease, unspecified; I25.10 Atherosclerotic heart disease of native coronary artery without angina pectoris; Z79.4 Long term (current) use of insulin; Z79.84 Long term (current) use of oral hypoglycemic drugs | CPT/HCPCS: 80053; 80061; 82044; 83036; 83721; 99214 ==

== ENCOUNTER → 2022-08-31 14:13 | Outpatient (BNVA) | payer OTHER, SELFPAY | PROVIDERS: PCP Family Medicine; Visit Provider Podiatrist Foot & Ankle Surgery | DX: E11.8 Type 2 diabetes mellitus with unspecified complications (principal); B35.1 Tinea unguium; I73.9 Peripheral vascular disease, unspecified; M20.41 Other hammer toe(s) (acquired), right foot; M20.42 Other hammer toe(s) (acquired), left foot; G62.9 Polyneuropathy, unspecified; E11.42 Type 2 diabetes mellitus with diabetic polyneuropathy; Z79.4 Long term (current) use of insulin | CPT/HCPCS: 11721 ==

== ENCOUNTER → 2022-10-20 13:31 | Outpatient (BNVA) | payer OTHER, SELFPAY | PROVIDERS: PCP Family Medicine; Visit Provider Internal Medicine | DX: E11.22 Type 2 diabetes mellitus with diabetic chronic kidney disease (principal); E11.59 Type 2 diabetes mellitus with other circulatory complications; N18.30 Chronic kidney disease, stage 3 unspecified; E11.69 Type 2 diabetes mellitus with other specified complication; E78.2 Mixed hyperlipidemia; Z95.1 Presence of aortocoronary bypass graft; I73.9 Peripheral vascular disease, unspecified; Z79.4 Long term (current) use of insulin; Z79.84 Long term (current) use of oral hypoglycemic drugs | CPT/HCPCS: 99214 ==

== ENCOUNTER → 2022-11-09 10:42 | Outpatient (BNVA) | payer OTHER, SELFPAY | PROVIDERS: PCP Family Medicine; Visit Provider Podiatrist Foot & Ankle Surgery | DX: B35.1 Tinea unguium (principal); I73.9 Peripheral vascular disease, unspecified; M20.41 Other hammer toe(s) (acquired), right foot; M20.42 Other hammer toe(s) (acquired), left foot; G62.9 Polyneuropathy, unspecified; E11.42 Type 2 diabetes mellitus with diabetic polyneuropathy; Z79.4 Long term (current) use of insulin | CPT/HCPCS: 11721 ==

== ENCOUNTER → 2022-11-11 12:35 | Outpatient (BNVA) | payer OTHER, SELFPAY | PROVIDERS: PCP Family Medicine; Visit Provider Internal Medicine | DX: I73.9 Peripheral vascular disease, unspecified (principal); Z95.1 Presence of aortocoronary bypass graft; Z87.891 Personal history of nicotine dependence; I10 Essential (primary) hypertension | CPT/HCPCS: 99214 ==

== ENCOUNTER 2022-12-28 07:29 | Outpatient (CLI) | payer OTHER, SELFPAY ==
--- NOTE | 2022-12-28 07:40 | USCV_ITS ---
Gregory Mukherjee Age: 67 Gender: M : 1955 Exam Date: 12/28/2022 07:52 Ordering Phys: Jackelin Cardona MD Technologist: Brandon Benavides Exam Location: [facility] – [place] Indication: screening HISTORY: Diameter (cm) AP x Transverse x Length Velocity (cm/s) Waveform Prox Aorta: 2.37 x 2.18 x 70.90 Biphasic Mid Aorta: 2.32 x 2.74 x 51.90 Biphasic Distal Aorta: 2.32 x 2.78 x 47.10 Biphasic Right Iliac Prox: 1.27 x 1.54 x 81.20 Biphasic Left Iliac Prox: 1.34 x 1.48 x 86.80 Biphasic Stent Prox Landing x x Aneurysmal Sac Max x x Lt Lat Sac Dim Rt Lat Sac Dim Stent Dist Landing x x Right Iliac Stent x x Left Iliac Stent x x Right Renal Art Left Renal Art FINDINGS: CONCLUSIONS No evidence of abdominal aortic or bilateral iliac aneurysm. Mild atheromatous disease Ulysses Reyes MD (Electronically Signed) Final Date: 28 December 2022 09:50 S
== END 2022-12-28 07:30 | disposition home or self-care (01) ==
PROVIDERS: PCP Family Medicine; Visit Provider Family Medicine
DX: Z13.6 Encounter for screening for cardiovascular disorders (principal); I70.0 Atherosclerosis of aorta
CPT/HCPCS: 76706

== ENCOUNTER → 2023-01-18 11:46 | Outpatient (BNVA) | payer OTHER, SELFPAY | PROVIDERS: PCP Family Medicine; Visit Provider Internal Medicine | DX: E11.69 Type 2 diabetes mellitus with other specified complication (principal); E78.2 Mixed hyperlipidemia; E11.59 Type 2 diabetes mellitus with other circulatory complications; E11.22 Type 2 diabetes mellitus with diabetic chronic kidney disease; N18.9 Chronic kidney disease, unspecified; N17.9 Acute kidney failure, unspecified; Z95.1 Presence of aortocoronary bypass graft; I73.9 Peripheral vascular disease, unspecified; Z79.4 Long term (current) use of insulin; Z79.84 Long term (current) use of oral hypoglycemic drugs | CPT/HCPCS: 36415; 80053; 80061; 82044; 83036; 99214 ==

== ENCOUNTER → 2023-01-22 07:25 | Outpatient (BNVA) | payer OTHER, SELFPAY | PROVIDERS: PCP Family Medicine; Visit Provider Podiatrist Foot & Ankle Surgery | DX: B35.1 Tinea unguium (principal); N18.9 Chronic kidney disease, unspecified; I73.9 Peripheral vascular disease, unspecified; E11.22 Type 2 diabetes mellitus with diabetic chronic kidney disease; Z79.4 Long term (current) use of insulin | CPT/HCPCS: 11721 ==

== ENCOUNTER → 2023-01-29 09:40 | Outpatient (BNVA) | payer OTHER, SELFPAY | PROVIDERS: PCP Family Medicine; Visit Provider Internal Medicine | DX: E11.69 Type 2 diabetes mellitus with other specified complication (principal); E78.2 Mixed hyperlipidemia; N18.9 Chronic kidney disease, unspecified | CPT/HCPCS: 80048 ==

== ENCOUNTER → 2023-02-03 08:49 | Outpatient (BNVA) | payer OTHER, SELFPAY | PROVIDERS: PCP Family Medicine; Visit Provider Internal Medicine | DX: E11.69 Type 2 diabetes mellitus with other specified complication (principal); E78.2 Mixed hyperlipidemia; Z95.1 Presence of aortocoronary bypass graft; I73.9 Peripheral vascular disease, unspecified; E11.649 Type 2 diabetes mellitus with hypoglycemia without coma; Z79.4 Long term (current) use of insulin; Z79.84 Long term (current) use of oral hypoglycemic drugs | CPT/HCPCS: 99214 ==

== ENCOUNTER → 2023-04-05 07:53 | Outpatient (BNVA) | payer OTHER, BC, SELFPAY | PROVIDERS: PCP Family Medicine; Visit Provider Podiatrist Foot & Ankle Surgery | DX: B35.1 Tinea unguium (principal); N18.9 Chronic kidney disease, unspecified; I73.9 Peripheral vascular disease, unspecified; E11.29 Type 2 diabetes mellitus with other diabetic kidney complication; Z79.4 Long term (current) use of insulin | CPT/HCPCS: 11721 ==

== ENCOUNTER → 2023-05-07 08:58 | Outpatient (BNVA) | payer OTHER, BC, SELFPAY | PROVIDERS: PCP Family Medicine; Visit Provider Internal Medicine | DX: E11.69 Type 2 diabetes mellitus with other specified complication (principal); E78.2 Mixed hyperlipidemia; N18.9 Chronic kidney disease, unspecified; Z95.1 Presence of aortocoronary bypass graft; I73.9 Peripheral vascular disease, unspecified; N17.9 Acute kidney failure, unspecified; E11.649 Type 2 diabetes mellitus with hypoglycemia without coma; E11.29 Type 2 diabetes mellitus with other diabetic kidney complication; E11.59 Type 2 diabetes mellitus with other circulatory complications; Z79.4 Long term (current) use of insulin; Z79.84 Long term (current) use of oral hypoglycemic drugs | CPT/HCPCS: 99214 ==

== ENCOUNTER → 2023-05-13 14:06 | Outpatient (BNVA) | payer OTHER, BC, SELFPAY | PROVIDERS: PCP Family Medicine; Visit Provider Internal Medicine | DX: I73.9 Peripheral vascular disease, unspecified (principal); Z95.1 Presence of aortocoronary bypass graft; Z87.891 Personal history of nicotine dependence | CPT/HCPCS: 99214 ==

== ENCOUNTER → 2023-05-27 10:20 | Outpatient (BNVA) | payer OTHER, SELFPAY | PROVIDERS: PCP Family Medicine; Visit Provider Internal Medicine | DX: E11.69 Type 2 diabetes mellitus with other specified complication (principal); E78.2 Mixed hyperlipidemia; N18.9 Chronic kidney disease, unspecified; Z95.1 Presence of aortocoronary bypass graft; I73.9 Peripheral vascular disease, unspecified; N17.9 Acute kidney failure, unspecified; E11.649 Type 2 diabetes mellitus with hypoglycemia without coma; E11.22 Type 2 diabetes mellitus with diabetic chronic kidney disease; Z79.4 Long term (current) use of insulin | CPT/HCPCS: 99214 ==

== ENCOUNTER → 2023-06-07 07:41 | Outpatient (BNVA) | payer OTHER, SELFPAY | PROVIDERS: PCP Family Medicine; Visit Provider Podiatrist Foot & Ankle Surgery | DX: B35.1 Tinea unguium (principal); N18.9 Chronic kidney disease, unspecified; I73.9 Peripheral vascular disease, unspecified; E11.22 Type 2 diabetes mellitus with diabetic chronic kidney disease; Z79.4 Long term (current) use of insulin | CPT/HCPCS: 11721 ==

== ENCOUNTER → 2023-08-02 07:45 | Outpatient (BNVA) | payer OTHER, SELFPAY | PROVIDERS: PCP Family Medicine; Visit Provider Podiatrist Foot & Ankle Surgery | DX: B35.1 Tinea unguium (principal); N18.9 Chronic kidney disease, unspecified; I73.9 Peripheral vascular disease, unspecified; E11.29 Type 2 diabetes mellitus with other diabetic kidney complication; Z79.4 Long term (current) use of insulin | CPT/HCPCS: 11721 ==

== ENCOUNTER → 2023-08-25 10:23 | Outpatient (BNVA) | payer OTHER, SELFPAY | PROVIDERS: PCP Family Medicine; Visit Provider Internal Medicine | DX: E11.69 Type 2 diabetes mellitus with other specified complication (principal); E78.2 Mixed hyperlipidemia; N18.9 Chronic kidney disease, unspecified; Z95.1 Presence of aortocoronary bypass graft; I73.9 Peripheral vascular disease, unspecified; N17.9 Acute kidney failure, unspecified; E11.649 Type 2 diabetes mellitus with hypoglycemia without coma; E11.22 Type 2 diabetes mellitus with diabetic chronic kidney disease; Z79.4 Long term (current) use of insulin | CPT/HCPCS: 99214 ==

== ENCOUNTER → 2023-10-12 12:42 | Outpatient (BNVA) | payer OTHER, SELFPAY | PROVIDERS: PCP Family Medicine; Visit Provider Podiatrist Foot & Ankle Surgery | DX: B35.1 Tinea unguium (principal); N18.9 Chronic kidney disease, unspecified; I73.9 Peripheral vascular disease, unspecified; E11.22 Type 2 diabetes mellitus with diabetic chronic kidney disease; Z79.4 Long term (current) use of insulin | CPT/HCPCS: 11721 ==

== ENCOUNTER → 2023-11-17 13:21 | Outpatient (BNVA) | payer OTHER, SELFPAY | PROVIDERS: PCP Family Medicine; Visit Provider Internal Medicine | DX: I73.9 Peripheral vascular disease, unspecified (principal); Z95.1 Presence of aortocoronary bypass graft | CPT/HCPCS: 99214 ==

== ENCOUNTER → 2023-11-25 09:39 | Outpatient (BNVA) | payer OTHER, SELFPAY | PROVIDERS: PCP Family Medicine; Visit Provider Internal Medicine | DX: E11.69 Type 2 diabetes mellitus with other specified complication (principal); E78.2 Mixed hyperlipidemia; N18.9 Chronic kidney disease, unspecified; Z95.1 Presence of aortocoronary bypass graft; I73.9 Peripheral vascular disease, unspecified; N17.9 Acute kidney failure, unspecified; E11.649 Type 2 diabetes mellitus with hypoglycemia without coma; E11.22 Type 2 diabetes mellitus with diabetic chronic kidney disease; Z79.4 Long term (current) use of insulin | CPT/HCPCS: 99214 ==

== ENCOUNTER → 2023-12-14 13:25 | Outpatient (BNVA) | payer OTHER, SELFPAY | PROVIDERS: PCP Family Medicine; Visit Provider Podiatrist Foot & Ankle Surgery | DX: B35.1 Tinea unguium (principal); N18.9 Chronic kidney disease, unspecified; I73.9 Peripheral vascular disease, unspecified; E11.29 Type 2 diabetes mellitus with other diabetic kidney complication; Z79.4 Long term (current) use of insulin; E11.649 Type 2 diabetes mellitus with hypoglycemia without coma; E11.22 Type 2 diabetes mellitus with diabetic chronic kidney disease; N17.9 Acute kidney failure, unspecified; E78.2 Mixed hyperlipidemia; Z95.1 Presence of aortocoronary bypass graft | CPT/HCPCS: 11721; 99214 ==

== ENCOUNTER 2024-01-18 15:07 | Outpatient (CLI) | payer OTHER, SELFPAY ==
[2024-01-18 16:14] LABS: Basophils # 0.1 10^3/uL (0.0-0.1); Basophils % 1.8 %; Eosinophils # 0.2 10^3/uL (0.0-0.8); Eosinophils % 5.9 %; Hematocrit 33.8 % (37-53); Lymphocytes # 1.1 10^3/uL (0.8-4.8); Lymphocytes % 30.8 %; Mean Corpuscular HGB Conc 34.6 g/dL (30-55); Mean Corpuscular Hemoglobin 32.2 pg (27-33); Mean Corpuscular Volume 93.1 fl (82-101); Mean Platelet Volume 8.8 fL (7.4-10.4); Monocytes # 0.3 10^3/uL (0.2-0.9); Neutrophils # 1.74 10^3/uL (1.8-7.7); Neutrophils % 50.9 %; Nucleated Red Blood Cells % 0 %; Platelet Count 185 10^3/cmm (157-399); Red Blood Count 3.63 10^6/uL (3.85-5.65); Red Cell Distribution Width 12.5 % (12.1-15.1); White Blood Count 3.41 10^3/uL (3.29-11.43)
[2024-01-18 16:38] LABS: Bilirubin Urine Negative (Negative); Blood Urine Negative (Negative); Glucose Urine UA 3+ (Normal); Ketones Urine Negative (Negative); Leukocyte Esterase Urine Negative (Negative); Nitrate Urine Negative (Negative); Protein Urine Negative (Negative); Specific Gravity, Urine 1.013 (1.005-1.030); Urine Appearance Clear (CLEAR); Urine Color Yellow (Yellow); Urobilinogen Urine 0.2 mg/dL (Negative); pH Urine 5.5 (5-7)
[2024-01-18 16:44] LABS: Add Urine Microscopic? YES; Bacteria Urine None Seen /hpf; Hyaline Casts Urine 2.05 /lpf; RBC Urine 0-2 /hpf (0-2); Squamous Epithelial Cell Urine 0-5 /hpf (0-5); WBC Urine 0-5 /hpf (0-5)
[2024-01-18 16:57] LABS: Alanine Aminotransferase 40 U/L (0-41); Albumin Level 4.6 g/dL (3.5-5.2); Alkaline Phosphatase 44 U/L (40-130); Aspartate Amino Transferase 30 U/L (0-40); Blood Urea Nitrogen 48 mg/dL (8-23); Carbon Dioxide 24 mmol/L (22-29); Chloride 98 mmol/L (98-107); Globulin 3.3 g/dL (1.3-4.6); Glomerular Filtration Rate 29.7 mL/min (90-130); Glucose 241 mg/dL (65-115); Iron 116 ug/dL (59-158); Magnesium 2.3 mg/dL (1.7-2.3); Osmolality Calculated 301 mOsm/kg (285-295); Percent Saturation 27.8 % (20-50); Phosphorus 3.1 mg/dL (2.5-4.5); Sodium 135 mmol/L (136-145); Total Bilirubin 0.5 mg/dL (0.15-1.2); Total Iron Binding Capacity 416 mcg/dl; Total Protein 7.9 g/dL (6.6-8.7); Unsaturated Iron Binding 300 ug/dL (112-347)
[2024-01-18 17:03] LABS: Calcium 9.9 mg/dL (8.5-10.5); Parathyroid Hormone 37.6 pg/mL (15-65)
[2024-01-18 17:40] LABS: Urine Creatinine 23 mg/dL (39-259); Urine Protein Random 12 mg/dL
[2024-01-18 17:42] LABS: UPRO/UCREAT Ratio 0.52 mg/mg CR
[2024-01-19 13:44] LABS: PROTEIN, TOTAL 7.7 g/dL (6.1-8.1)
[2024-01-20 10:04] LABS: ALBUMIN 4.6 g/dL (3.8-4.8); ALPHA 1 GLOBULIN 0.3 g/dL (0.2-0.3); ALPHA 2 GLOBULIN 0.9 g/dL (0.5-0.9); BETA 1 GLOBULIN 0.5 g/dL (0.4-0.6); BETA 2 GLOBULIN 0.4 g/dL (0.2-0.5); GAMMA GLOBULIN 1.1 g/dL (0.8-1.7)
[2024-01-20 15:35] LABS: KAPPA LIGHT CHAIN, FREE, SERUM 48.7 mg/L (3.3-19.4); KAPPA/LAMBDA LIGHT CHAINS FREE 2.19 (0.26-1.65); LAMBDA LIGHT CHAIN, FREE, SERU 22.2 mg/L (5.7-26.3)
== END 2024-01-18 15:08 | disposition home or self-care (01) ==
LOC: LAB 15:15
PROVIDERS: PCP Family Medicine; Visit Provider Registered Nurse
DX: N18.32 Chronic kidney disease, stage 3b (principal); E83.52 Hypercalcemia
CPT/HCPCS: 36415; 80053; 80069; 81001; 82310; 82570; 83540; 83550; 83735; 83883; 83970; 84155; 84156; 84165; 85025

== ENCOUNTER → 2024-02-16 13:09 | Outpatient (BNVA) | payer OTHER, SELFPAY | PROVIDERS: PCP Family Medicine; Visit Provider Podiatrist Foot & Ankle Surgery | DX: B35.1 Tinea unguium (principal); N18.9 Chronic kidney disease, unspecified; I73.9 Peripheral vascular disease, unspecified; E11.22 Type 2 diabetes mellitus with diabetic chronic kidney disease; Z79.4 Long term (current) use of insulin | CPT/HCPCS: 11721 ==

== ENCOUNTER → 2024-04-26 14:00 | Outpatient (BNVA) | payer OTHER, SELFPAY | PROVIDERS: PCP Family Medicine; Visit Provider Podiatrist Foot & Ankle Surgery | DX: B35.1 Tinea unguium (principal); N18.9 Chronic kidney disease, unspecified; I73.9 Peripheral vascular disease, unspecified; E11.22 Type 2 diabetes mellitus with diabetic chronic kidney disease; Z79.4 Long term (current) use of insulin | CPT/HCPCS: 11721 ==

== ENCOUNTER → 2024-05-24 15:12 | Outpatient (BNVA) | payer OTHER, SELFPAY | PROVIDERS: PCP Family Medicine; Visit Provider Internal Medicine | DX: I73.9 Peripheral vascular disease, unspecified (principal); Z95.1 Presence of aortocoronary bypass graft | CPT/HCPCS: 99213 ==

== ENCOUNTER → 2024-06-28 13:54 | Outpatient (BNVA) | payer OTHER, SELFPAY | PROVIDERS: PCP Family Medicine; Visit Provider Podiatrist Foot & Ankle Surgery | DX: E11.22 Type 2 diabetes mellitus with diabetic chronic kidney disease (principal); B35.1 Tinea unguium; L84 Corns and callosities; N18.9 Chronic kidney disease, unspecified; I73.9 Peripheral vascular disease, unspecified; Z79.4 Long term (current) use of insulin | CPT/HCPCS: 11056; 11721 ==

== ENCOUNTER → 2024-08-29 12:42 | Outpatient (BNVA) | payer OTHER, SELFPAY | PROVIDERS: PCP Family Medicine; Visit Provider Podiatrist Foot & Ankle Surgery | DX: I73.9 Peripheral vascular disease, unspecified (principal); B35.1 Tinea unguium; L84 Corns and callosities; N18.9 Chronic kidney disease, unspecified; Z79.4 Long term (current) use of insulin | CPT/HCPCS: 11056; 11721 ==

== ENCOUNTER → 2024-09-18 12:28 | Outpatient (BNVA) | payer OTHER, SELFPAY | PROVIDERS: PCP Family Medicine; Visit Provider Podiatrist Foot & Ankle Surgery | DX: E11.621 Type 2 diabetes mellitus with foot ulcer (principal); B35.1 Tinea unguium; N18.9 Chronic kidney disease, unspecified; I73.9 Peripheral vascular disease, unspecified; L97.512 Non-pressure chronic ulcer of other part of right foot with fat layer exposed; Z79.4 Long term (current) use of insulin | CPT/HCPCS: 99214 ==

== ENCOUNTER → 2024-09-25 14:12 | Outpatient (BNVA) | payer OTHER, SELFPAY | PROVIDERS: PCP Family Medicine; Visit Provider Podiatrist Foot & Ankle Surgery | DX: E11.621 Type 2 diabetes mellitus with foot ulcer (principal); L97.518 Non-pressure chronic ulcer of other part of right foot with other specified severity; B35.1 Tinea unguium; N18.9 Chronic kidney disease, unspecified; I73.9 Peripheral vascular disease, unspecified; Z79.4 Long term (current) use of insulin | CPT/HCPCS: 99213 ==

== ENCOUNTER → 2024-10-09 14:30 | Outpatient (BNVA) | payer OTHER, SELFPAY | PROVIDERS: PCP Family Medicine; Visit Provider Podiatrist Foot & Ankle Surgery | DX: S91.301A Unspecified open wound, right foot, initial encounter (principal) | CPT/HCPCS: 87070; 87075; 87205 ==

== ENCOUNTER → 2024-10-16 14:59 | Outpatient (BNVA) | payer OTHER, SELFPAY | PROVIDERS: PCP Family Medicine; Visit Provider Podiatrist Foot & Ankle Surgery | DX: E11.621 Type 2 diabetes mellitus with foot ulcer (principal); B35.1 Tinea unguium; N18.9 Chronic kidney disease, unspecified; I73.9 Peripheral vascular disease, unspecified; L97.518 Non-pressure chronic ulcer of other part of right foot with other specified severity; L03.115 Cellulitis of right lower limb; Z79.4 Long term (current) use of insulin | CPT/HCPCS: 99213 ==

== ENCOUNTER → 2024-10-24 13:40 | Outpatient (BNVA) | payer OTHER, SELFPAY | PROVIDERS: PCP Family Medicine; Visit Provider Podiatrist Foot & Ankle Surgery | DX: E11.621 Type 2 diabetes mellitus with foot ulcer (principal); L03.115 Cellulitis of right lower limb; B35.1 Tinea unguium; N18.9 Chronic kidney disease, unspecified; I73.9 Peripheral vascular disease, unspecified; L97.512 Non-pressure chronic ulcer of other part of right foot with fat layer exposed; Z79.4 Long term (current) use of insulin | CPT/HCPCS: 11043; 99214 ==

== ENCOUNTER → 2024-10-31 12:54 | Outpatient (BNVA) | payer OTHER, SELFPAY | PROVIDERS: PCP Family Medicine; Visit Provider Podiatrist Foot & Ankle Surgery | DX: I73.9 Peripheral vascular disease, unspecified (principal); E11.621 Type 2 diabetes mellitus with foot ulcer; B35.1 Tinea unguium; N18.9 Chronic kidney disease, unspecified; L97.521 Non-pressure chronic ulcer of other part of left foot limited to breakdown of skin; Z79.4 Long term (current) use of insulin; L03.115 Cellulitis of right lower limb | CPT/HCPCS: 99213 ==

== ENCOUNTER 2024-11-09 12:30 | Outpatient (CLI) | payer OTHER, SELFPAY ==
--- NOTE | 2024-11-09 13:00 | USR_ITS ---
PROCEDURE INFORMATION: Exam: US Duplex Bilateral Lower Extremity Arteries Exam date and time: 11/09/2024 12:45 PM Age: 69 years old Clinical indication: Condition or disease; Peripheral vascular disease; Additional info: Peripheral arterial disease TECHNIQUE: Imaging protocol: Real-time ultrasound scan of the arteries of the bilateral lower extremities with 2-D woodruff scale, color Doppler flow and spectral waveform analysis. Images documented and saved. COMPARISON: CT angio abd aorta runof [id number] 05/20/2020 9:13 AM FINDINGS: Right common femoral artery: No occlusion or significant stenosis. Normal waveform. Right superficial femoral artery: No occlusion or significant stenosis. Monophasic waveform at the distal SFA. Right popliteal artery: No occlusion or significant stenosis. Monophasic waveform. Right calf/foot arteries: No occlusion or significant stenosis in the visualized arteries. Monophasic waveforms. Dorsalis pedis artery is patent. Right side ANIBAL 0.89 consistent with mild stenosis Left common femoral artery: No occlusion or significant stenosis. Normal waveform. Left superficial femoral artery: No occlusion or significant stenosis. Monophasic waveform at the proximal SFA Left popliteal artery: No occlusion or significant stenosis. Triphasic waveform. Left calf/foot arteries: No occlusion , there is moderate stenosis in the visualized arteries. All monophasic waveforms. Dorsalis pedis artery is patent. Left side ANIBAL 0.72 moderate disease US/CV arterial duplex [facility] [id number] IMPRESSION: 1. Right side mild stenosis. 2. Left side moderate disease
== END 2024-11-09 12:31 | disposition home or self-care (01) ==
LOC: RAD 12:31
PROVIDERS: PCP Family Medicine; Visit Provider Podiatrist Foot & Ankle Surgery
DX: I73.9 Peripheral vascular disease, unspecified (principal)
CPT/HCPCS: 93925

== ENCOUNTER → 2024-11-14 14:22 | Outpatient (BNVA) | payer OTHER, SELFPAY | PROVIDERS: PCP Family Medicine; Visit Provider Podiatrist Foot & Ankle Surgery | DX: E11.621 Type 2 diabetes mellitus with foot ulcer (principal); B35.1 Tinea unguium; N18.9 Chronic kidney disease, unspecified; I73.9 Peripheral vascular disease, unspecified; L97.512 Non-pressure chronic ulcer of other part of right foot with fat layer exposed; M86.8X7 Other osteomyelitis, ankle and foot; Z79.4 Long term (current) use of insulin; L03.115 Cellulitis of right lower limb | CPT/HCPCS: 99214 ==

== ENCOUNTER → 2024-11-15 09:03 | Outpatient (BNVA) | payer OTHER, SELFPAY | PROVIDERS: PCP Family Medicine; Referring Provider Podiatrist Foot & Ankle Surgery; Visit Provider Nurse Practitioner Family | DX: I73.9 Peripheral vascular disease, unspecified (principal); T14.8XXA Other injury of unspecified body region, initial encounter; X58.XXXA Exposure to other specified factors, initial encounter; I12.9 Hypertensive chronic kidney disease with stage 1 through stage 4 chronic kidney disease, or unspecified chronic kidney disease; E11.22 Type 2 diabetes mellitus with diabetic chronic kidney disease; N18.9 Chronic kidney disease, unspecified; Z79.4 Long term (current) use of insulin; Z95.1 Presence of aortocoronary bypass graft; Z79.02 Long term (current) use of antithrombotics/antiplatelets; Z79.82 Long term (current) use of aspirin; Z87.891 Personal history of nicotine dependence | CPT/HCPCS: 99213 ==

== ENCOUNTER → 2024-11-20 14:50 | Outpatient (BNVA) | payer OTHER, SELFPAY | PROVIDERS: PCP Family Medicine; Visit Provider Podiatrist Foot & Ankle Surgery | DX: E11.621 Type 2 diabetes mellitus with foot ulcer (principal); L97.512 Non-pressure chronic ulcer of other part of right foot with fat layer exposed; B35.1 Tinea unguium; N18.9 Chronic kidney disease, unspecified; I73.9 Peripheral vascular disease, unspecified; L03.115 Cellulitis of right lower limb; M86.671 Other chronic osteomyelitis, right ankle and foot; Z79.4 Long term (current) use of insulin | CPT/HCPCS: 99214 ==

== ENCOUNTER 2024-11-28 06:19 | Day surgery (SDC) | payer OTHER, SELFPAY ==
[2024-11-28] VITALS (7 sets, daily range): BP systolic 102–146; BP diastolic 63–86; PULSE 52–60; RESP 12–22; TEMP 36.4–36.6; O2SAT 96–100
[2024-11-28 07:14] LABS: Hematocrit 38.4 % (37-53); Hemoglobin 12.80 g/dL (11.27-16.99); Mean Corpuscular HGB Conc 33.3 g/dL (30-55); Mean Corpuscular Hemoglobin 30.6 pg (27-33); Mean Corpuscular Volume 91.9 fl (82-101); Nucleated Red Blood Cells % 0 %; Platelet Count 158 10^3/cmm (157-399); Red Blood Count 4.18 10^6/uL (3.85-5.65); White Blood Count 3.88 10^3/uL (3.29-11.43)
--- NOTE | 2024-11-28 07:24 | ANES.PREANE2 ---
Pre-Anesthetic Assessment Height/Weight: Height 1.85 m Temp Pulse Resp BP Pulse Ox O2 Del Method 97.5 F L 59 L 18 145/76 96 Room Air 11/28/24 06:42 11/28/24 06:42 11/28/24 06:42 11/28/24 06:42 11/28/24 06:42 11/28/24 06:43 Preop Diagnosis: Osteomyelitis Operation Date: 11/28/24 08:05 Proposed Procedures p Right foot partial second digit amputation(Right) - Caesar Hinds DPM Familial anesthetic complications: none Was Beta Juan taken within 24 hours: N/A Was Clonidine taken within 24 hours: N/A Last intake: Intake Last Liquid Date 11/27/24 Last Liquid Time 22:00 Last Solid Date 11/27/24 Last Solid Time 22:00 Social No alcohol and No tobacco Exam alert, oriented x 3, clear to auscultation bilaterally and regular rate & rhythm Airway Mallampati: Class II Dentition: false CV/HEM Coronary Artery Disease (cabg) and Peripheral Vascular Disease Chronic Renal Insufficiency Metabolic Diabetes Mellitus and Hyperlipidemia Anesthetic Plan ASA status: 4 Anesthesia: MAC Risk of > 500 ml blood loss (7ml/kg in children): No Medications/Allergies Home Medications ?Medication ?Instructions ?Recorded ?Confirmed ?Last Taken ?Type albuterol sulfate 2.5 mg/0.5 mL 2.5 mg inhalation Q20M 05/16/20 11/23/24 Unknown History solution for nebulization albuterol sulfate 90 mcg/actuation 2 puff inhalation Q6H PRN 05/16/20 11/23/24 Unknown History aerosol inhaler Shortness Of Breath Or Wheezing ascorbic acid (vitamin C) 1,000 mg 1,000 mg PO DAILY 05/16/20 11/23/24 11/27/24 History tablet,extended release diclofenac sodium 1 % topical gel 4 g topical QID PRN Pain 05/16/20 11/23/24 11/23/24 History (Voltaren) fluticasone propionate 50 2 inh inhalation DAILY PRN 05/16/20 11/23/24 10/23/21 History mcg/actuation blister powder for Shortness Of Breath inhalation (Flovent Diskus) sildenafil 100 mg tablet (Viagra) 100 mg PO DAILY PRN Sexual Activity 05/16/20 11/23/24 11/23/24 History tamsulosin 0.4 mg capsule 0.4 mg PO DAILY 05/16/20 11/23/24 11/27/24 History testosterone cypionate 200 mg/mL 200 mg IM .Q 14 DAYS 05/16/20 11/23/24 07/20/21 History intramuscular oil (Depo-Testosterone) gabapentin 300 mg capsule 300 mg PO BID PRN Pain 10/24/20 11/23/24 11/27/24 History clopidogrel 75 mg tablet 75 mg PO DAILY #90 tabs 02/10/21 11/23/24 11/27/24 Rx valsartan 320 mg tablet 320 mg PO DAILY #90 tabs 02/10/21 11/23/24 11/27/24 Rx furosemide 20 mg tablet 20 mg PO DAILY 05/31/21 11/23/24 11/27/24 History zinc 50 mg tablet 50 mg PO DAILY 09/15/21 11/23/24 11/27/24 History cholecalciferol (vitamin D3) 25 25 mcg PO DAILY 10/22/21 11/23/24 11/27/24 History mcg (1,000 unit) capsule (Vitamin D3) duloxetine 30 mg capsule,delayed 30 mg PO DAILY 02/12/22 11/23/24 11/27/24 History release rosuvastatin 10 mg tablet 10 mg PO DAILY #30 tabs 03/18/22 11/23/24 11/27/24 Rx coenzyme Q10 50 mg capsule 50 mg PO DAILY 01/18/23 11/23/24 11/27/24 History insulin glargine 100 unit/mL (3 40 unit (0.4 mL) SUBCUT DAILY #15 05/12/23 11/23/24 11/27/24 Rx mL) subcutaneous pen (Lantus mL Solostar U-100 Insulin) carvedilol 6.25 mg tablet 3.125 mg PO DAILY 05/13/23 11/23/24 11/27/24 History pen needle, diabetic 32 gauge x #100 ea 05/17/23 11/20/24 Unknown Rx 1/4 (BD Ultra-Fine Micro Pen Needle) blood-glucose sensor (Dexcom G7 #9 ea 10/08/23 11/20/24 Unknown Rx Sensor device) acetaminophen 325 mg capsule 325 mg PO DAILY PRN Pain 11/17/23 11/23/24 11/23/24 History insulin aspart U-100 100 unit/mL 5 unit (0.05 mL) SUBCUT TID #15 mL 03/27/24 11/23/24 11/27/24 Rx (3 mL) subcutaneous pen (Novolog FlexPen U-100 Insulin aspart) aspirin 81 mg tablet,delayed 162 mg PO DAILY 05/24/24 11/28/24 11/27/24 History release fenofibrate 160 mg tablet 160 mg PO DAILY 11/23/24 11/23/24 11/27/24 History methocarbamol 500 mg tablet 500 mg PO TID 11/23/24 11/23/24 11/27/24 History Allergies Allergy/AdvReac Type Severity Reaction Status Date / Time No Known Allergies Allergy Unknown Verified 11/20/24 14:14 Current Medications Generic Name Dose Route Start Last Admin Trade Name Freq PRN Reason Stop Dose Admin Sodium Chloride 1,000 mls @ 30 mls/hr 11/28/24 06:30 11/28/24 06:53 Sodium Chloride 0.9% IV 11/29/24 06:29 30 mls/hr .Q24H NICOLETTE Administration PFSH Anesthesia Medical History Hypertension Hyperlipidemia associated with type 2 diabetes mellitus Peripheral Vascular Disease Surgical History History of colonoscopy with polypectomy (10/24/21) 2014 Hx of CABG History of cholecystectomy Family History Denies family history of Diabetes CAD (coronary artery disease) Cancer Social History Smoking and tobacco/nicotine status: former use of tobacco/nicotine Quit status (tobacco/nicotine): has quit using Year quit tobacco: 1995 Alcohol intake: former Substance/Drug Use: former Date of last use: 1994 Lives independently: Yes Household members: spouse Housing: House Marital status: Number of children: 2 Pets and animals: Yes Pets & animals: cat(s) and dog(s) Data Anesthesia 11/28/24 07:02 11/28/24 07:02 Short CBC 11/28/24 Range/Units 07:02 WBC 3.88 (3.29-11.43) 10^3/uL Hgb 12.80 (11.27-16.99) g/dL Hct 38.4 (37-53) % MCV 91.9 (82-101) fl Plt Count 158 (157-399) 10^3/cmm Neut % (Auto) 42.9 % Neut # (Auto) 1.67 L (1.8-7.7) 10^3/uL Cardiac Studies: Echocardiogram 07/28/21
[2024-11-28 07:40] LABS: Anion Gap 16.8 (5-19); Blood Urea Nitrogen 40 mg/dL (8-23); Calcium 9.9 mg/dL (8.5-10.5); Carbon Dioxide 25 mmol/L (22-29); Chloride 100 mmol/L (98-107); Glucose 174 mg/dL (65-115); Osmolality Calculated 300 mOsm/kg (285-295); Potassium 3.8 mmol/L (3.5-5.1); Sodium 138 mmol/L (136-145)
--- NOTE | 2024-11-28 07:57 | P.HPUD_ITS ---
Surgery/Procedure H&P Update DATE OF PROCEDURE: November 28, 2024 DATE H&P PERFORMED: 11/20/24 H&P UPDATE INFORMATION: I have reviewed H&P completed within last 30 days, I have examined patient prior to procedure, No changes to prior documentation, H&P is in [facility] EMR on date indicated and Risks and benefits of the procedure reviewed PREOP DIAGNOSIS: Osteomyelitis PLANNED PROCEDURE: Operation Date: 11/28/24 08:05 Proposed Procedures p Right foot partial second digit amputation(Right) - Caesar Hinds DPM
[2024-11-28] MEDS: ceFAZolin 2,000 mg SDV 2000 MG IVP (08:08)
[2024-11-28] MEDS: BUPivacaine 0.5% INJ 30 mL INJECTION (08:10)
--- NOTE | 2024-11-28 08:45 | PM.OP ---
Operative Report Date of procedure: November 28, 2024 Surgeon: Caesar Hinds DPM Procedure: Date of procedure: 11/28/2024 Pre-op diagnosis: Osteomyelitis right foot second Post-op diagnosis: Same Post-op findings: Osteomyelitis right foot second digit Procedure done: Partial amputation right foot second toe CPT 10401 Implants: None Specimens removed: Distal right foot second toe Surgeon: Dr. Caesar Hinds DPM Bander Operator: Jones Estimated blood loss: 3 cc Tourniquet time: No tourniquet used Complications: None Patient is a 69-year-old male that has a history of right foot chronic ulceration with underlying osteomyelitis of second toe. The patient has had the aforementioned chief complaint for some time. Conservative treatment measures have been attempted and the patient has opted for surgical intervention at this time. A lengthy discussion regarding the procedure, including risks and complications has been had with the patient and is noted in the recent clinic note. Written and verbal consent have been obtained. All patient questions have been answered to the patient?s satisfaction. No written or verbal guarantees have been given or implied. The patient has been NPO since midnight. The history has been reviewed and the history and physical is current. The signed consent was confirmed and placed in the patient chart. Patient imaging has been reviewed and is consistent with the diagnosis. Under mild sedation, the patient was brought into the operating room and placed on the table in the supine position. IV antibiotics were given by the anesthesia team as preoperative surgical prophylaxis. MAC sedation was then performed by the anesthesiateam. A local field block was performed using 0.5% Marcaine plain. A pneumatic tourniquet was then placed about the right ankle. The operative extremity was then prepped and draped in the usual fashion. The tourniquet was not inflated. After prep, the following procedure was then performed. Attention was directed to the right foot second digit where a #15 blade was used to make a fishmouth incision at the level of the proximal phalangeal joint. Dissection was carried down through subcutaneous the superficial fascia to the level of the proximal interphalangeal joint. The capsule was incised and distal aspect of the digit was disarticulated at the level of the proximal interphalangeal joint and passed from the operative field and sent a specimen. Remaining tissue appeared healthy and viable. Site was irrigated with sterile saline. Incision was closed using 3-0 nylon in simple interrupted fashion. Incision was dressed with Xeroform, 4 x 4 gauze, Kerlix, Mason bandage. The patient tolerated the procedure and anesthesia well and without complication. The patient was transported from the operating room to the recovery room with vital signs stable and vascular status intact to all digits of the right foot. The patient was given both written and verbal instructions to remain weightbearing as tolerated to the operative extremity, to keep dressings/splint clean, dry and intact and to take pain medication as directed. The patient will follow-up in the outpatient setting at their scheduled appointment. The patient was discharged with my personal number and was instructed to call if any questions or issues should arise. They were discharged home once anesthesia criteria was met.
--- NOTE | 2024-11-28 09:35 | ANE.PACU2 ---
Inpatient post-anesthesia follow up: Airway intact: Yes Vital signs: Temperature 97.6 F Pulse Rate 52 Respiratory Rate 18 Blood Pressure 142/86 Pulse Oximetry 96 Oxygen Delivery Me thod Room Air Oxygen Flow Rate Fraction of Inspir ed Oxygen Hydration adequate: Yes Nausea and vomiting: No Pain level: 1 Mental status: Baseline
== END 2024-11-28 09:35 | disposition home or self-care (01) ==
PROVIDERS: Anesthesiology; PCP Family Medicine; Visit Provider Podiatrist Foot & Ankle Surgery
PROC: (CPT 28825; principal; 2024-11-28 07:55)
DX: M86.8X7 Other osteomyelitis, ankle and foot (principal); L98.499 Non-pressure chronic ulcer of skin of other sites with unspecified severity; Z79.82 Long term (current) use of aspirin; Z79.4 Long term (current) use of insulin; E78.5 Hyperlipidemia, unspecified; I73.9 Peripheral vascular disease, unspecified; Z87.891 Personal history of nicotine dependence; E11.22 Type 2 diabetes mellitus with diabetic chronic kidney disease; I12.9 Hypertensive chronic kidney disease with stage 1 through stage 4 chronic kidney disease, or unspecified chronic kidney disease; N18.9 Chronic kidney disease, unspecified; E11.621 Type 2 diabetes mellitus with foot ulcer; L97.509 Non-pressure chronic ulcer of other part of unspecified foot with unspecified severity; I25.10 Atherosclerotic heart disease of native coronary artery without angina pectoris; Z95.1 Presence of aortocoronary bypass graft
CPT/HCPCS: 28825; 36415; 36416; 80048; 82962; 85025; 88305; 88311; J0690; J2704; J3010; J3490; J7030; J9999; L3260

== ENCOUNTER → 2024-12-07 15:10 | Outpatient (BNVA) | payer OTHER, SELFPAY | PROVIDERS: PCP Family Medicine; Visit Provider Podiatrist Foot & Ankle Surgery | DX: B35.1 Tinea unguium (principal); N18.9 Chronic kidney disease, unspecified; I73.9 Peripheral vascular disease, unspecified; E11.29 Type 2 diabetes mellitus with other diabetic kidney complication; L03.115 Cellulitis of right lower limb; Z89.421 Acquired absence of other right toe(s); Z79.4 Long term (current) use of insulin; M86.171 Other acute osteomyelitis, right ankle and foot | CPT/HCPCS: 99213 ==

== ENCOUNTER → 2024-12-19 09:12 | Outpatient (BNVA) | payer OTHER, SELFPAY | PROVIDERS: PCP Family Medicine; Visit Provider Podiatrist Foot & Ankle Surgery | DX: E11.621 Type 2 diabetes mellitus with foot ulcer (principal); B35.1 Tinea unguium; N18.9 Chronic kidney disease, unspecified; I73.9 Peripheral vascular disease, unspecified; L97.519 Non-pressure chronic ulcer of other part of right foot with unspecified severity; Z79.4 Long term (current) use of insulin; Z89.421 Acquired absence of other right toe(s); E11.29 Type 2 diabetes mellitus with other diabetic kidney complication; L03.115 Cellulitis of right lower limb; M86.171 Other acute osteomyelitis, right ankle and foot | CPT/HCPCS: 99213 ==

== ENCOUNTER → 2024-12-28 09:27 | Outpatient (BNVA) | payer OTHER, SELFPAY | PROVIDERS: PCP Family Medicine; Visit Provider Podiatrist Foot & Ankle Surgery | DX: I73.9 Peripheral vascular disease, unspecified (principal); B35.1 Tinea unguium; E11.621 Type 2 diabetes mellitus with foot ulcer; N18.9 Chronic kidney disease, unspecified; L97.518 Non-pressure chronic ulcer of other part of right foot with other specified severity; Z79.4 Long term (current) use of insulin; L03.115 Cellulitis of right lower limb; M86.171 Other acute osteomyelitis, right ankle and foot | CPT/HCPCS: 11721 ==

== ENCOUNTER → 2025-01-08 13:25 | Outpatient (BNVA) | payer OTHER, SELFPAY | PROVIDERS: PCP Family Medicine; Visit Provider Podiatrist Foot & Ankle Surgery | DX: E11.621 Type 2 diabetes mellitus with foot ulcer (principal); L97.518 Non-pressure chronic ulcer of other part of right foot with other specified severity; B35.1 Tinea unguium; N18.9 Chronic kidney disease, unspecified; I73.9 Peripheral vascular disease, unspecified; L03.115 Cellulitis of right lower limb; Z79.4 Long term (current) use of insulin; M86.171 Other acute osteomyelitis, right ankle and foot | CPT/HCPCS: 99212 ==

== ENCOUNTER 2025-02-12 16:05 | Observation (INO) | payer OTHER, SELFPAY ==
--- NOTE | 2025-02-12 16:00 | PC.NURSE ---
Received patient from [facility] for pre hydration prior to peripheral angiogram tomorrow as scheduled. Pt is alert, Ox4. Denies any pain or discomfort. Pt is on room air, he said he brought his cpap from home for sleep use tonight. Pedal pulses are diminished to faint upon palpation. Doppled bilateral DP and PT pulses and has great sound waves. Pt has medial scar from cabg, scar on right leg medial area from fem-pop yrs ago, right 2nd to partial amputation. Pt provided with call light to call for any assistance during his stay, provided admit kit and urina, admit packet. Started IV on left forearm #20g w/ 1 attempt and started NS at 100 mls/hr as ordered. Rewiew written orders from SENIOR LABORATORY TECHNICIAN Fabiola Mg. Informed pt about the time of his procedure tomorrow w/c is at 10 AM. Pt verbalizes understanding.
--- NOTE | 2025-02-12 16:10 | P.HP_ITS ---
<Statement entered by Sin Deluca M.D - 02/18/25 13:23> Patient was cared for in conjunction with an advanced practice practitioner.? I reviewed the chart and all pertinent data including imaging, telemetry, and laboratory results.? I discussed the patient in detail with the advanced practice practitioner.? Please see? their documentation for progress note, testing results and agreed upon plan of care for the patient. Providers/Chief Complaint Admitting Physician: Sin Deluca M.D Primary Care Provider: Jackelin Cardona MD Chief Complaint: cardiac cath, iv hydration History of Present Illness Gregory Mukherjee is a 69 year old male with past medical history of partial amputation of the right second toe on 11/28/2024, right femoral-popliteal bypass in 2021, CKD, smoking. He was seen in the office several months ago, where monophasic flow in the right SFA was noted. Plan was made for peripheral angiogram with admission to the hospital the evening prior to procedure for IV hydration, given the chronic kidney disease and likelihood of progression to renal failure without adequate hydration prior. Most recent creatinine in November was 1.9, baseline appears to be around 1.6-2. Medications/Allergies Home Medications ?Medication ?Instructions ?Recorded ?Confirmed ?Last Taken ?Type albuterol sulfate 2.5 mg/0.5 mL 2.5 mg inhalation Q20M 05/16/20 02/05/25 Unknown History solution for nebulization albuterol sulfate 90 mcg/actuation 2 puff inhalation Q 6H PRN 05/16/20 02/05/25 Unknown History aerosol inhaler Shortness Of Breath Or Wheez ing ascorbic acid (vitamin C) 1,000 mg 1,000 mg PO DAILY 0 05/16/20 02/05/25 11/27/24 History tablet,extended release diclofenac sodium 1 % topical gel 4 g topical QID PRN Pain 05/16/20 02/05/25 11/23/24 History (Voltaren) fluticasone propionate 50 2 inh inhalation DAILY PRN 0 05/16/20 02/05/25 10/23/21 History mcg/actuation blister powder for Shortness Of Breath inhalation (Flovent Diskus) sildenafil 100 mg tablet (Viagra) 100 mg PO DAILY PRN Sexual Activity 05/16/20 02/05/25 11/23/24 History tamsulosin 0.4 mg capsule 0.4 mg PO DAILY 05/16/2001/2011/27/24 History testosterone cypionate 200 mg/mL 200 mg IM .Q 14 DAYS 05/16/20 02/05/25 07/20/21 History intramuscular oil (Depo-Testosterone) gabapentin 300 mg capsule 300 mg PO BID PRN Pain 10/2402/05/25 11/27/24 History clopidogrel 75 mg tablet 75 mg PO DAILY #90 tabs 01/2702/05/25 11/27/24 Rx valsartan 320 mg tablet 320 mg PO DAILY #90 tabs 02/05/25 11/27/24 Rx furosemide 20 mg tablet 20 mg PO DAILY 05/31/2101/2711/27/24 History zinc 50 mg tablet 50 mg PO DAILY 09/15/2101/2711/27/24 History cholecalciferol (vitamin D3) 25 25 mcg PO DAILY 02/05/25 11/27/24 History mcg (1,000 unit) capsule (Vitamin D3) duloxetine 30 mg capsule,delayed 30 mg PO DAILY 02/05/25 11/27/24 History release rosuvastatin 10 mg tablet 10 mg PO DAILY #30 tabs 02/2702/05/25 11/27/24 Rx coenzyme Q10 50 mg capsule 50 mg PO DAILY 01/18/2301/2011/27/24 History insulin glargine 100 unit/mL (3 40 unit (0.4 mL) SUBCU T DAILY #15 05/12/23 02/05/25 11/27/24 Rx mL) subcutaneous pen (Lantus mL Solostar U-100 Insulin) carvedilol 6.25 mg tablet 3.125 mg PO DAILY 05/13/23 1 04/07/24 11/27/24 History pen needle, diabetic 32 gauge x #100 ea 05/17/2302/05 Unknown Rx 04/01 (BD Ultra-Fine Micro Pen Needle) blood-glucose sensor (Dexcom G7 #9 ea 10/08/23 5 Unknown Rx Sensor device) acetaminophen 325 mg capsule 325 mg PO DAILY PRN Pain 11/17/23 02/05/2511/23/25 History insulin aspart U-100 100 unit/mL 5 unit (0.05 mL) SUBC UT TID #15 mL 03/27/24 02/05/25 11/27/24 Rx (3 mL) subcutaneous pen (Novolog FlexPen U-100 Insulin aspart) aspirin 81 mg tablet,delayed 162 mg PO DAILY 05/24/24 02/05/25 11/27/24 History release fenofibrate 160 mg tablet 160 mg PO DAILY 11/23/2401/2011/27/24 History methocarbamol 500 mg tablet 500 mg PO TID 11/23/2401/2011/27/24 History Allergies Allergy/AdvReac Type Severity Reaction Status Date / Time No Known Allergies Allergy Unknown Verified 02/05/25 06:48 PFSH Acute PFSH: Medical History Hypertension Hyperlipidemia associated with type 2 diabetes mellitus Peripheral Vascular Disease Surgical History History of colonoscopy with polypectomy (10/24/21) 2014 Hx of CABG History of cholecystectomy Family History Denies family history of Diabetes CAD (coronary artery disease) Cancer Social History Smoking and tobacco/nicotine status: unknown if used tobacco/nicotine Quit status (tobacco/nicotine): has quit using Year quit tobacco: 1995 Alcohol intake: former Substance/Drug Use: former Date of last use: 1994 Lives independently: Yes Household members: spouse Housing: House Marital status: Number of children: 2 Pets and animals: Yes Pets & animals: cat(s) and dog(s) Physical Exam Const: COMMON NORMALS: no acute distress and patient oriented x3 GENERAL APPEARANCE: cooperative and comfortable ORIENTATION/CONSCIOUSNESS: Yes awake, Yes oriented to person, Yes oriented to place and Yes oriented to time Chest: COMMONS NORMALS: normal inspection of the chest and normal palpation of entire chest wall CHEST: Yes Symmetrical chest wall rise Resp: COMMON NORMALS: normal respiratory effort, No retractions, No use of accessory muscles and clear to auscultation bilaterally EFFORT & INSPECTION: Yes symmetric chest movement AUSCULTATION: clear to auscultation bilaterally Cardio: COMMON NORMALS: regular rate, regular rhythm, S1 normal heart sound present, S2 normal heart sound present, No gallops present (Cardio), No clicks present (Cardio), No murmurs present (Cardio) and No rub (Cardio) RATE: regular rate RHYTHM: regular rhythm HEART SOUNDS: S1 normal heart sound present and S2 normal heart sound present PERIPHERAL PULSES: radial pulses present Extremity: COMMON NORMALS: no pedal edema Neuro: COMMON NORMALS: patient oriented x3 and moves all extremities SENSORIUM/ORIENTATION: Yes oriented to person, Yes oriented to place and Yes oriented to time A&P Assessment and plan 1. Peripheral Vascular Disease: 2. Hx of CAB. Claudication: 4. Hypertension: 5. Mixed hyperlipidemia due to type 2 diabetes mellitus: 6. Diabetes type 2, uncontrolled: 7. CKD (chronic kidney disease): Plan: He will be admitted to the cardiac stepdown unit tonight, CBC and BMP obtained. Will start IV fluid normal saline at 100 mL/h until the procedure in the morning. N.p.o. after midnight tonight. Recheck BMP in the morning. PDMP PDMP Reviewed: Not Reviewed Attestations Medical Necessity Statement*: Peripheral angiogram tomorrow Coding Level of Care Code Acute Code for [facility] Diagnoses Peripheral Vascular Disease I73.9 Hx of CABG Z95.1 Claudication I73.9 Hypertension I10 Mixed hyperlipidemia due to type 2 diabetes mellitus E11.69; E78.2 Diabetes type 2, uncontrolled CKD (chronic kidney disease) N18.9
[2025-02-12 16:16] VITALS: BMI 26.8
[2025-02-12 17:16] LABS: Hematocrit 38.9 % (37-53); Hemoglobin 13.30 g/dL (11.27-16.99); Mean Corpuscular HGB Conc 34.2 g/dL (30-55); Mean Corpuscular Hemoglobin 30.7 pg (27-33); Mean Corpuscular Volume 89.8 fl (82-101); Nucleated Red Blood Cells % 0 %; Platelet Count 200 10^3/cmm (157-399); Red Blood Count 4.33 10^6/uL (3.85-5.65); White Blood Count 4.33 10^3/uL (3.29-11.43)
[2025-02-12 17:35] LABS: Anion Gap 15.2 (5-19); Blood Urea Nitrogen 61 mg/dL (8-23); Calcium 9.7 mg/dL (8.5-10.5); Carbon Dioxide 29 mmol/L (22-29); Chloride 96 mmol/L (98-107); Glucose 264 mg/dL (65-115); Osmolality Calculated 308 mOsm/kg (285-295); Potassium 4.2 mmol/L (3.5-5.1); Sodium 136 mmol/L (136-145)
[2025-02-12 20:00] VITALS: BP 145/89; PULSE 64; RESP 16; TEMP 37.1; O2SAT 97
[2025-02-12] MEDS: ATORVASTATIN 20 MG TABLET PO (21:30)
[2025-02-13] VITALS (29 sets, daily range): BP systolic 120–199; BP diastolic 68–105; PULSE 46–72; RESP 0–21; TEMP 35.9–36.8; O2SAT 94–98
[2025-02-13 06:33] LABS: Anion Gap 11.0 (5-19); Blood Urea Nitrogen 55 mg/dL (8-23); Calcium 9.5 mg/dL (8.5-10.5); Carbon Dioxide 31 mmol/L (22-29); Chloride 100 mmol/L (98-107); Glucose 139 mg/dL (65-115); Osmolality Calculated 303 mOsm/kg (285-295); Potassium 4.0 mmol/L (3.5-5.1); Sodium 138 mmol/L (136-145)
--- NOTE | 2025-02-13 08:27 | XACV_ITS ---
Ht: 185 cm Wt: 96 kg BSA: 2.24 m2 Any Known Allergies: No known allergies Gender: Male : 1955 Exam Type: Invasive Peripheral Vascular Procedure(s): Procedure Description: Peripheral Cath Diagnostic Procedure Procedure Description: Lower extremities' angiography Exam Priority: Routine Lower Extremity Diagnostic Findings INDICATION: Severe claudication/ Right foot wound, now healing after amputation. Right lower extremity findings: Right common iliac artery is patent. Right external iliac artery is patent. Right common femoral artery is patent. Right distal SFA to proximal popliteal artery is 100% occluded. Bypass graft is occluded. Below the knee vessels reconstituted via collaterals. Peroneal artery is patent. Posterior tibial artery has diffuse disease. Anterior tibial artery is subtotally occluded with long diffuse disease. . Left common femoral artery has 50% stenosis. Conclusions Right lower extremity bypass graft is occluded. Right distal SFA to popliteal artery is totally occluded with diffuse disease below the knee. As patient's wound has healed post amputation, we will proceed with medical therapy. This is complex peripheral artery disease. If develops open wounds in future, will consider revascularization however with his renal dysfunction, we will hold off on it for now. Recommendations Aggressive medical therapy and risk factor modification. Outpatient cardiology follow up in 2 weeks. Hemodynamic Data Phase:Rest AO : 153.0 / 63.0 ( 93.0 ) @ 11:28:00 AM 112.0 / 55.0 ( 78.0 ) @ 11:32:00 AM 119.0 / 59.0 ( 84.0 ) @ 11:37:00 AM Access Site Site: Left Femoral artery Sheath Size: 6 Fr Hemost... Method: Mynx Hemost... Success: Successful Procedure Details Findings Procedure Consent Obtained. Pre-Procedure Time Out. Identified patient by full name and date of as verbalized by the patient/guarantor. Does the consent match the physician's order: Yes. Accurate & Complete Informed Consent: Yes. Inpatient/Outpatient History & Physical on Chart: Yes. If H&P is completed, is and addenduem needed: No; If yes, is the addendum complete: N/A. Visualize and Verify Site with Patient/Guarantor: N/A. Relevant Radiology Images available: Yes. Pre-op teaching completed and patient verbalized understanding. The risks, benefits, and alternatives of sedation and/or procedure were discussed by physician. The patient agrees to continue. Procedure started. Physician arrived. Correct patient, site and procedure confirmed by cath team. PERRLA. Strong, equal hand director school of nursing bilaterally. Lungs clear x 5 lobes. IV Site on Arrival: 20 gauge in the left forearm. IV Fluids: 0.9% NaCl at KVO. 600 mL infused prior to clinical laboratory service teacher. Pre Procedural Pulses: bilateral dorsalis pedis was Doppled. Pre Procedural Pulses: bilateral posterior tibial was Doppled. Oxygen started at 2liters/min via nasal canula. bilateral groins was prepped with chloroprep then draped in the usual sterile fashion. Baseline sample Acquired. HR: 57 BPM. Physician scrubbed in. Immediate Pre-Procedure Time Out. Correct Patient: Yes; Correct Procedure: Yes; Correct Site: Yes; Correct Patient Position: Yes; Correct Supplies: Yes; Dried Flammable Prep: Yes; Blood Products Available: N/A;. Lidocaine 1% infiltrated to the left groin. Arterial access obtained with micropuncture set. Lidocaine 1% infiltrated to the left groin. A 5FrFr UF catheter in over the glidewire. Right external iliac selected and arteriogram with runoff performed @ 10 mL/sec for a total of 30 mL. DSA performed of the right lower leg. DSA performed of the right lower leg. Catheter removed over the glide wire. A Left femoral angiogram was performed to determine safe placement of closure device. A Mynx was successful obtaining hemostatsis at the Left Femoral artery insertion site. Post Procedure: Pulses reassessed and unchanged. PERRLA. Strong, equal hand director school of nursing bilaterally. No VTE prophylaxis required. Medication's Wasted: Lidocaine 1% = 10 mL. Medication's Wasted: Heparin = 1000 units. Total IV fluids: 50 mL. Vital chart was stopped. Post-op diagnosis: PAD. Complications: None. Estimated blood loss: 5mL-10mL. Responsiveness - Normal response to verbal stimuli; alert and oriented, PERRLA. Airway - Unaffected, no intervention required; spontaneous ventilation. Circulation: W/N/L, pulses unchanged. Nausea/Vomiting: No. Procedure completed. Patient transferred by bed to 1st floor. Procedure Medications Start: 11:13 AM Stop: : AM Medication: Versed Amount: 1 mg Route: I.V. Start: 11:13 AM Stop: AM Medication: Fentanyl Amount: 50 mcg Route: I.V. Start: 11: AM Stop: AM Medication: Versed Amount: 1 mg Route: I.V. Start: 11:38 AM Stop: : AM Medication: Fentanyl Amount: 50 mcg Route: I.V. I, the attending physician, have reviewed and verified all procedure medications. Yes, all medications given per verbal order History/Risk Factors Hypertension: Yes Dyslipidemia: Yes Peripheral Arterial Disease (PAD): Yes Obesity: No Renal Disease: No Prior Interventions PCI: No CABG: Yes Valve Surgery: No Report Signatures Finalized by Sin Deluca MD on 03/01/2025 09:54 AM
--- NOTE | 2025-02-13 10:09 | PC.CHAP ---
Pastoral Care Encounter/Spiritual Assessment Type of Contact [] Declined leach runner visit [] Patient/Family/Request visit [] Outpatient visit [] Follow-up visit [] Physician referral [] Code/Alert [] Routine visit [] Staff referral [] Actively dying [x] Patient sleeping [] Family support [] [] Out of room [] Palliative care [] [] Receiving care in room [] Pre-surgical visit [] Trauma [] Long length of stay [] ICU visit [] Other: Relational/Emotional Strength [] Patient feels connected with others/family/visitors/staff [] Distress [] Loneliness/isolation [] Abandonment Spirituality of Patient [] Person of Magda [] Attends Jew of their Magda [] Believes in Prayer [] Reads Bible or Jewish materials [] There are Spiritual issues to be addressed Molding Press Operator Interventions [] Prayer [] Active listening [] Non-anxious presence [] Spiritual/emotional support [] Crisis/trauma care [] Spiritual counseling [] Bereavement support [] Provided bereavement packet [] Provided Bible/devotional materials [] Provided toy/stuffed animal, coloring book to patient or family member [] Provided Communion [] Anointing/[place] [] Salvation [] Completed spiritual assessment [] Other: Impact on Illness or Injury [] Angry [] Fearful [] Anxious [] Often cries [] Exhaustion [] Unable to work [] Unable to attend sabianism [] Unable to walk/stand [] Unable to read [] Unable to drive [] Unable to eat/drink [] Unable to sleep [] Unable to be with family [] Patient intubated [] Other: Summary Time spent with patient
--- NOTE | 2025-02-13 11:06 | W.PM.OPSUD ---
Surgery/Procedure H&P Update DATE OF PROCEDURE: February 13, 2025 DATE H&P PERFORMED: 02/12/25 H&P UPDATE INFORMATION: I have reviewed H&P completed within last 30 days, I have examined patient prior to procedure and Changes to prior documentation as noted here CHANGES TO PREVIOUS DOCUMENTATION: Severe claudication/ Right foot wound, now healing after amputation PREOP DIAGNOSIS: Severe claudication/ Right foot wound, now healing after amputation PRIMARY INDICATION FOR PROCEDURE: Severe claudication/ Right foot wound, now healing after amputation PLANNED PROCEDURE: Peripheral angiogram with possible intervention PATIENT REASSESSED PRIOR TO SEDATION, WITH NO CHANGE NOTED: Yes PHYSICAL EXAM: alert, oriented x 3, clear to auscultation bilaterally and regular rate & rhythm AIRWAY EVAL/ANESTHESIA PLAN: normal airway, ASA III, Local Anesthesia, Risks, benefits & alternatives of sedation and/or procedure discussed and Patient agrees to continue as planned ADDITIONAL INFORMATION: Moderate sedation
--- NOTE | 2025-02-13 12:00 | PC.NURSE ---
Pt arrives back to [facility]. Left groin soft no hematoma, bleeding noted. Dressing C, D and I. IVF infusing at 75ml/hr. Pt requested his PiPap so he could rest for his 4 hours of bedrest.
[2025-02-13] MEDS: hyDRALAzine 20 mg/mL INJ 1 mL IVP (17:47)
--- NOTE | 2025-02-13 18:03 | PC.NURSE ---
Shift summary: Pt resting in bed. He went to organic lab worker today for peripheral angio. No interventions doen. He has completed his 4 hours bedrest. Left groin soft, with no bleeding or hematomas. Tibial pulse faintly palpable this evening, but mostly dopler used. Sinus bradycardia, first degree block oted on monitor. HTN increasing this evening, one time order of hydralazine admin.
[2025-02-13] MEDS: ATORVASTATIN 20 MG TABLET PO (20:37)
[2025-02-14] VITALS: BP 159/82; PULSE 58; PULSE 61; RESP 13; RESP 15; TEMP 36.5; O2SAT 97
[2025-02-14 04:00] VITALS: BP 166/84; PULSE 56; RESP 15; O2SAT 95
[2025-02-14 04:57] LABS: Hematocrit 34.9 % (37-53); Hemoglobin 11.50 g/dL (11.27-16.99); Mean Corpuscular HGB Conc 33.0 g/dL (30-55); Mean Corpuscular Hemoglobin 30.7 pg (27-33); Mean Corpuscular Volume 93.1 fl (82-101); Nucleated Red Blood Cells % 0 %; Platelet Count 168 10^3/cmm (157-399); Red Blood Count 3.75 10^6/uL (3.85-5.65); White Blood Count 3.90 10^3/uL (3.29-11.43)
[2025-02-14 05:12] LABS: Anion Gap 14.5 (5-19); Blood Urea Nitrogen 38 mg/dL (8-23); Calcium 8.9 mg/dL (8.5-10.5); Carbon Dioxide 24 mmol/L (22-29); Chloride 104 mmol/L (98-107); Glucose 140 mg/dL (65-115); Osmolality Calculated 299 mOsm/kg (285-295); Potassium 3.5 mmol/L (3.5-5.1); Sodium 139 mmol/L (136-145)
[2025-02-14 05:26] VITALS: BP 166/84; PULSE 57; RESP 15; TEMP 36.8; O2SAT 96
[2025-02-14 08:20] VITALS: BP 168/89; PULSE 59; RESP 21; O2SAT 94
--- NOTE | 2025-02-14 09:13 | P.DS_ITS ---
<Statement entered by Sin Deluca M.D - 02/24/25 12:35> Patient was cared for in conjunction with an advanced practice practitioner.? I reviewed the chart and all pertinent data including imaging, telemetry, and laboratory results.? I discussed the patient in detail with the advanced practice practitioner.? Please see? their documentation for discharge note, testing results and agreed upon plan of care for the patient. Discharge Providers Date of Admission: 02/12/25 16:05 Date of Discharge: February 14, 2025 Attending Provider at Admission: Sin Deluca M.D Attending Provider at Discharge: Sin Deluca M.D Primary Care Provider: Jackelin Cardona MD Diagnoses at Discharge Discharge Diagnosis 1. Hx of CAB. Claudication: 3. Hypertension: 4. Mixed hyperlipidemia due to type 2 diabetes mellitus: 5. Diabetes type 2, uncontrolled: 6. 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 He was seen in the office several months ago, where monophasic flow in the right SFA was noted. Plan was made for peripheral angiogram with admission to the hospital the evening prior to procedure for IV hydration, given the chronic kidney disease and likelihood of progression to renal failure without adequate hydration prior. Most recent creatinine in November was 1.9, baseline appears to be around 1.6-2. Hospital Course Hospital Course He was brought to the hospital for peripheral angiogram, which revealed right distal SFA and popliteal stenosis with occlusion. The wound had healed on that leg. He had single-vessel runoff below the knee. Plan is to continue medical management, if he has future worsening can consider intervention on the right. He will be discharged home today. Creatinine improved to 1.8. Follow-up in the cardiology clinic in 2 weeks. Physical Exam Const: COMMON NORMALS: no acute distress and patient oriented x3 GENERAL APPEARANCE: cooperative ORIENTATION/CONSCIOUSNESS: Yes awake, Yes oriented to person, Yes oriented to place and Yes oriented to time Chest: COMMONS NORMALS: normal inspection of the chest and normal palpation of entire chest wall CHEST: Yes Symmetrical chest wall rise Resp: COMMON NORMALS: normal respiratory effort, No retractions, No use of accessory muscles and clear to auscultation bilaterally AUSCULTATION: clear to auscultation bilaterally Cardio: COMMON NORMALS: regular rate, regular rhythm, S1 normal heart sound present, S2 normal heart sound present, No gallops present (Cardio), No clicks present (Cardio), No murmurs present (Cardio) and No rub (Cardio) RATE: regular rate RHYTHM: regular rhythm HEART SOUNDS: S1 normal heart sound present and S2 normal heart sound present PERIPHERAL PULSES: radial pulses present positive right 2+ and femoral pulses present positive right 2+ Neuro: COMMON NORMALS: patient oriented x3 and moves all extremities SENSORIUM/ORIENTATION: Yes oriented to person, Yes oriented to place and Yes oriented to time Skin: WOUNDS: Yes surgical site (no hematoma palpable) Details: no odor Discharge Data Studies Completed and Pending Pending at discharge Category Date Time Status IRRIGATION FOREMAN request for service Routine Exams 02/13/25 08:27 Taken Laboratory Results WBC 3.90 10^3/uL (3.29-11.43) 02/14/25 03:40 RBC 3.75 10^6/uL (3.85-5.65) L 02/14/25 03:40 Hgb 11.50 g/dL (11.27-16.99) 02/14/25 03:40 Hct 34.9 % (37-53) L 02/14/25 03:40 MCV 93.1 fl (82-101) 02/14/25 03:40 MCH 30.7 pg (27-33) 02/14/25 03:40 MCHC 33.0 g/dL (30-55) 02/14/25 03:40 RDW 12.9 % (12.1-15.1) 02/14/25 03:40 Plt Count 168 10^3/cmm (157-399) 02/14/25 03:40 MPV 9.3 fL (7.4-10.4) 02/14/25 03:40 Neut % (Auto) 48.9 % 02/14/25 03:40 Lymph % (Auto) 32.1 % 02/14/25 03:40 [place]con % (Auto) 11.5 % 02/14/25 03:40 Eos % (Auto) 5.9 % 02/14/25 03:40 Baso % (Auto) 1.3 % 02/14/25 03:40 Neut # (Auto) 1.91 10^3/uL (1.8-7.7) 02/14/25 03:40 Lymph # (Auto) 1.3 10^3/uL (0.8-4.8) 02/14/25 03:40 [place] # (Auto) 0.5 10^3/uL (0.2-0.9) 02/14/25 03:40 Eos # (Auto) 0.2 10^3/uL (0.0-0.8) 02/14/25 03:40 Baso # (Auto) 0.1 10^3/uL (0.0-0.1) 02/14/25 03:40 Nucleated RBC % (auto) 0 % 02/14/25 03:40 Nucleated RBCs # 0.0 /100WBC 02/14/25 03:40 Sodium 139 mmol/L (136-145) 02/14/25 03:40 Potassium 3.5 mmol/L (3.5-5.1) 02/14/25 03:40 Chloride 104 mmol/L (98-107) 02/14/25 03:40 Carbon Dioxide 24 mmol/L (22-29) 02/14/25 03:40 Anion Gap 14.5 (5-19) 02/14/25 03:40 BUN 38 mg/dL (8-23) H 02/14/25 03:40 Creatinine 1.8 mg/dL (0.7-1.2) H 02/14/25 03:40 GFR Calculation Not Reportable 02/14/25 03:40 Glucose 140 mg/dL (65-115) H 02/14/25 03:40 POC Glucose 135 mg/dL (70-110) H 02/14/25 06:23 Calculated Osmolality 299 mOsm/kg (285-295) H 02/14/25 03:40 Calcium 8.9 mg/dL (8.5-10.5) 02/14/25 03:40 Vitals Last Vital Signs Temp 98.2 F 02/14/25 05:26 Pulse 57 L 02/14/25 05:26 Resp 15 02/14/25 05:26 BP 166/84 02/14/25 05:26 Pulse Ox 96 02/14/25 05:26 O2 Del Method CPAP 02/14/25 00:00 Discharge Plan Discharge Patient Disposition: Home Condition: Stable Prescriptions: New amlodipine 5 mg tablet 5 mg PO DAILY Qty: 90 3RF Continued clopidogrel 75 mg tablet 75 mg PO DAILY Qty: 90 3RF valsartan 320 mg tablet 320 mg PO DAILY Qty: 90 3RF diclofenac sodium [Voltaren] 1 % gel 4 g topical QID PRN (Reason: Pain) Rx Instructions: apply to single knee, ankle, foot; for foot includes sole/toes/top of foot tamsulosin 0.4 mg capsule 0.4 mg PO DAILY sildenafil [Viagra] 100 mg tablet 100 mg PO DAILY PRN (Reason: Sexual Activity) Rx Instructions: administer 30 minutes to 4 hours before activity gabapentin 300 mg capsule 300 mg PO BID PRN (Reason: Pain) acetaminophen 325 mg capsule 500 mg PO DAILY PRN (Reason: Pain) duloxetine 30 mg capsule,delayed release(DR/EC) 30 mg PO DAILY rosuvastatin 10 mg tablet 10 mg PO DAILY Qty: 30 3RF coenzyme Q10 50 mg capsule 50 mg PO DAILY insulin glargine [Lantus Solostar U-100 Insulin] 100 unit/mL (3 mL) insulin pen 40 unit SUBCUT DAILY Qty: 15 0RF (DME) pen needle, diabetic [BD Ultra-Fine Micro Pen Needle] 32 gauge x 1/4 needle See Rx Instructions .ROUTE .MEDSUPPLY Qty: 100 3RF Rx Instructions: As directed (DME) Dexcom G7 Sensor Device See Rx Instructions .ROUTE .COMPLEX Qty: 9 0RF Dose Instruction: CHANGE EVERY 10 DAYS Rx Instructions: CHANGE EVERY 10 DAYS furosemide 20 mg Tablet 20 mg PO DAILY cholecalciferol (vitamin D3) [Vitamin D3] 25 mcg (1,000 unit) Capsule 25 mcg PO DAILY methocarbamol 500 mg tablet 500 mg PO DAILY fenofibrate 160 mg tablet 160 mg PO DAILY Rx Instructions: TAKE 1 TABLET BY MOUTH DAILY insulin aspart U-100 [Novolog FlexPen U-100 Insulin] 100 unit/mL (3 mL) insulin pen 25 unit SUBCUT TIDWM testosterone 1 % (25 mg/2.5gram) Gel In Packet 2 packet TRANSDERMAL DAILY Discontinued carvedilol 6.25 mg tablet 3.125 mg PO DAILY Discharge Order = DC NOW: Discharge Order (Routine); Ordered 02/14/25 Ordered By: Fabiola Mg Referrals: Sin Deluca M.D [Physician, Cardiology] - 02/21/25 3:15 pm Jackelin Cardona MD [Primary Care Provider, [facility]] Discharge Diet: Cardiac and Diabetic Discharge Activity: Increase activity as tolerated Patient Instructions: Amlodipine (By mouth), Chronic Kidney Disease (DC), Peripheral Artery Disease (DC), Chronic Hypertension (DC), Opioid Safety, Post Angiogram Home Care Instructions, Patient Portal & Ingrid Instructions Activity Restrictions/Additional Instructions: No lifting over 5 pounds for the next 4 days. Print Language: Omani Discharge Date/Time: 02/14/25 09:50 Discharge Attestations Time Spent in Discharge Care*: less than 30 min Status at Discharge: Cognitive status at discharge: cognitively intact , Behavioral status at discharge: cooperative , Quality Metrics Clinical Quality Measures [ No reported AMI, CVA or VTE this stay] Coding Level of Care Code Acute Code for Chg Fwd Diagnoses Peripheral Vascular Disease I73.9 Hx of CABG Z95.1 Claudication I73.9 Hypertension I10 Mixed hyperlipidemia due to type 2 diabetes mellitus E11.69; E78.2 Diabetes type 2, uncontrolled CKD (chronic kidney disease) N18.9
--- NOTE | 2025-02-14 09:25 | PC.CHAP ---
Pastoral Care Encounter/Spiritual Assessment Type of Contact [] Declined wallpaper printer helper visit [] Patient/Family/Request visit [] Outpatient visit [] Follow-up visit [] Physician referral [] Code/Alert [] Routine visit [] Staff referral [] Actively dying [x] Patient sleeping [] Family support [] [] Out of room [] Palliative care [] [] Receiving care in room [] Pre-surgical visit [] Trauma [] Long length of stay [] ICU visit [] Other: Relational/Emotional Strength [] Patient feels connected with others/family/visitors/staff [] Distress [] Loneliness/isolation [] Abandonment Spirituality of Patient [] Person of Magda [] Attends [employer] of their Magda [] Believes in Prayer [] Reads Bible or Christian materials [] There are Spiritual issues to be addressed [place] Interventions [] Prayer [] Active listening [] Non-anxious presence [] Spiritual/emotional support [] Crisis/trauma care [] Spiritual counseling [] Bereavement support [] Provided bereavement packet [] Provided Bible/devotional materials [] Provided toy/stuffed animal, coloring book to patient or family member [] Provided Communion [] Anointing/[place] [] Salvation [] Completed spiritual assessment [] Other: Impact on Illness or Injury [] Angry [] Fearful [] Anxious [] Often cries [] Exhaustion [] Unable to work [] Unable to attend yazidi [] Unable to walk/stand [] Unable to read [] Unable to drive [] Unable to eat/drink [] Unable to sleep [] Unable to be with family [] Patient intubated [] Other: Summary Time spent with patient
[2025-02-14 09:34] VITALS: BP 168/89; PULSE 59; RESP 21; O2SAT 94
--- NOTE | 2025-02-14 09:49 | PC.NURSE ---
discharge instructions given and explained.pt verb understanding of instructions.discharged via w/c to exit at this time.
== END 2025-02-14 09:50 | disposition home or self-care (01) ==
PROVIDERS: Nurse Practitioner Family; Admitting Provider Internal Medicine; PCP Family Medicine; Visit Provider Internal Medicine
DX: I73.9 Peripheral vascular disease, unspecified (principal); Z95.1 Presence of aortocoronary bypass graft; E78.2 Mixed hyperlipidemia; E11.22 Type 2 diabetes mellitus with diabetic chronic kidney disease; I12.9 Hypertensive chronic kidney disease with stage 1 through stage 4 chronic kidney disease, or unspecified chronic kidney disease; N18.9 Chronic kidney disease, unspecified; Z79.02 Long term (current) use of antithrombotics/antiplatelets; Z79.4 Long term (current) use of insulin; Z79.82 Long term (current) use of aspirin; Z87.891 Personal history of nicotine dependence
CPT/HCPCS: 36415; 36416; 75710; 80048; 82962; 85025; 99152; 99153; C1760; C1769; C1887; C1894; G0269; G0378; G0379; J0360; J1644; J2250; J3010; J7030; J9999; Q0163; Q9967

== ENCOUNTER → 2025-02-21 10:09 | Outpatient (BNVA) | payer OTHER, SELFPAY | PROVIDERS: PCP Family Medicine; Visit Provider Internal Medicine | DX: I73.9 Peripheral vascular disease, unspecified (principal); Z95.1 Presence of aortocoronary bypass graft; Z87.891 Personal history of nicotine dependence | CPT/HCPCS: 99214 ==

== ENCOUNTER → 2025-03-07 10:30 | Outpatient (BNVA) | payer OTHER, SELFPAY | PROVIDERS: PCP Family Medicine; Visit Provider Podiatrist Foot & Ankle Surgery | DX: B35.1 Tinea unguium (principal); N18.9 Chronic kidney disease, unspecified; I73.9 Peripheral vascular disease, unspecified; E11.69 Type 2 diabetes mellitus with other specified complication; Z89.411 Acquired absence of right great toe | CPT/HCPCS: 11721 ==